=== PATIENT | female | born 1945 | race Hispanic/Latino ===

== ENCOUNTER 2019-08-17 15:14 | Emergency (ER) | payer OTHER ==
[2019-08-17] MEDS ORDERED: HYDROCODONE/APAP 7.5/325 MG TAB ONE (15:52)
--- NOTE | 2019-08-17 16:10 | RAD REPORT ---
EXAM DESCRIPTION: RAD - Lumbar Spine 3 Views - 08/17/2019 4:03 pm CLINICAL HISTORY: PAIN Radiculopathy COMPARISON: No comparisons FINDINGS: Vertebral body heights appear maintained. No compression fracture noted. Disc spaces are m aintained. Mild disc thinning with small posterior osteophyte at L4-5 and L5-S1. Cholecystectomy clip s. IMPRESSION: Mild lower lumbar spondylosis.
--- NOTE | 2019-08-17 16:11 | RAD REPORT ---
EXAM DESCRIPTION: RAD - Forearm Left - 08/17/2019 4:03 pm CLINICAL HISTORY: PAIN COMPARISON: No comparisons FINDINGS: Soft tissue swelling is seen along the dorsum of the wrist. Thin lucency along the radial styloid region may be a normal variant, however recommend correlation with point tenderness to exclud e subtle fracture.
--- NOTE | 2019-08-17 16:12 | RAD REPORT ---
EXAM DESCRIPTION: RAD - Knee Left 3 View - 08/17/2019 4:03 pm CLINICAL HISTORY: PAIN COMPARISON: No comparisons FINDINGS: No acute fracture or dislocation seen. Small suprapatellar joint effusion.
--- NOTE | 2019-08-17 16:21 | ER ---
Nurse's Notes [facility] Name: Sondra Azevedo Age: 73 yrs Sex: Female : 1945 Arrival Date: 08/17/2019 Time: 15:19 Bed 20 Private MD: Diagnosis: Fall on same level from slipping, tripping and stumbling with subsequent striking against object;Contusion of left knee;Abrasion of knee;Other and unspecified sprain of wrist Presentation: 08/16 15:31 Chief complaint: Patient's son or daughter states: Fell Sunday night. Left wrist and ll1 left leg/knee pain since. Abrasion noted to left knee, pain to posterior knee also. Denies LOC, no head injury. No blood thinners. Coronavirus screen: Proceed with normal triage. Patient denies a cough. Patient denies shortness of breath or difficulty breathing. Patient denies measured and/or subjective temperature greater than 100.4F prior to today's visit. Patient denies travel on a cruise ship or to a country the [facility] currently lists as an affected area. Patient denies contact with known and/or suspected case of COVID-19. Ebola Screen: Patient denies travel to an Ebola-affected area in the 21 days before illness onset. Initial Sepsis Screen: Does the patient meet any 2 criteria? No. Patient's initial sepsis screen is negative. Does the patient have a suspected source of infection? No. Patient's initial sepsis screen is negative. Risk Assessment: Do you want to hurt yourself or someone else? Patient reports no desire to harm self or others. Onset of symptoms was August 13, 2019. 15:31 Method Of Arrival: Wheelchair ll1 15:31 Acuity: SONALI 3 ll1 Triage Assessment: 17:18 General: Appears. ah Historical: - Allergies: 15:37 Benzonatate; ll1 15:37 Ibuprofen; ll1 - PMHx: 15:37 Hypertension; Hyperlipidemia; CVA; ll1 - PSHx: 15:37 cataracts; Cholecystectomy; Appendectomy; Hysterectomy; ; heart cath; ll1 - Immunization history:: Flu vaccine is up to date. - Social history:: Patient/guardian denies using alcohol, street drugs, tobacco products. Screenin:30 Abuse screen: Denies threats or abuse. Nutritional screening: No deficits noted. Tuberculosis screening: No symptoms or risk factors identified. Fall Risk Fall in past 12 months (25 points). No IV (0 pts). Ambulatory Aid- None/Bed Rest/Nurse Assist (0 pts). Gait- Weak (10 pts.). Mental Status- Oriented to own ability (0 pts). Assessment: 16:15 General: Appears uncomfortable, Behavior is calm. Pain: Complains of pain in left knee ah and left wrist. Neuro: Level of Consciousness is awake, alert, Oriented to person, place, time, situation. Cardiovascular: Capillary refill < 3 seconds Patient's skin is warm and dry. Respiratory: Airway is patent Respiratory effort is even, unlabored, Respiratory pattern is regular, symmetrical. GI: No signs and/or symptoms were reported involving the gastrointestinal system. : No signs and/or symptoms were reported regarding the genitourinary system. EENT: No signs and/or symptoms were reported regarding the EENT system. Derm: No signs and/or symptoms reported regarding the dermatologic system. Musculoskeletal: Circulation, motion, and sensation intact. Capillary refill < 3 seconds, Range of motion: limited in left knee abrasion noted to left knee from fall Tenderness present in left knee. Vital Signs: 15:31 BP 146 / 62; Pulse 65; Resp 17; Temp 97.7; Pulse Ox 100% ; Pain 10/10; ll1 ED Course: 15:19 Patient arrived in ED. mr 15:24 Donna Freitas FNP-C is [facility]. snw 15:24 Michael Hector MD is Attending Physician. snw 15:35 Triage completed. ll1 15:37 Arm band placed on Patient placed in an exam room, on a stretcher. ll1 15:43 Lashonda Lyons, RN is Primary Nurse. ah 16:03 Forearm Left XRAY In Process Unspecified. EDMS 16:03 Knee Left 3 View XRAY In Process Unspecified. EDMS 16:03 Lumbar Spine (3 Views) XRAY In Process Unspecified. EDMS 16:30 Patient has correct armband on for positive identification. Bed in low position. Call light in reach. Side rails up X 1. 17:00 No provider procedures requiring assistance completed. Patient did not have IV access during this emergency room visit. Administered Medications: 16:10 Drug: Bonesteel (7.5 mg-325 mg) 1 tabs Route: PO; 16:59 Drug: Lidocaine Gel 2 % 1 application Route: Mucous Membrane; 17:12 Follow up: Response: No adverse reaction Outcome: 16:21 Discharge ordered by . aditi 16:45 Discharged to home via wheelchair. 16:45 Condition: good 16:45 Discharge instructions given to patient, family, Instructed on discharge instructions, follow up and referral plans. Demonstrated understanding of instructions, follow-up care, Prescriptions given X 1. 17:03 Patient left the ED. vc Signatures: Dispatcher [employer] EDMS Donna Freitas, OTHER SPATIAL SCIENTIST-C OTHER SPATIAL SCIENTIST-Csnw Amirah Olmos Vanessa, RN RN vc Harris, Amy RN Maddy Millard RN RN ll1
--- NOTE | 2019-08-17 16:21 | EDPHYS ---
Physician Documentation [facility] Name: Sondra Azevedo Age: 73 yrs Sex: Female : 1945 Arrival Date: 08/17/2019 Time: 15:19 Bed 20 Private MD: ANDRES Physician Michael Hector HPI: 08/16 15:37 This 73 yrs old Female presents to ER via Wheelchair with complaints of Fall snw Injury. 15:37 Details of fall: The patient fell from an upright position, while walking. Onset: The snw symptoms/episode began/occurred suddenly, 4 day(s) ago, and became persistent. Associated injuries: The patient sustained dorsal aspect of left wrist and left knee, abrasion, contusion, painful injury. Severity of symptoms: At their worst the symptoms were moderate. The patient has not experienced similar symptoms in the past. The patient has not recently seen a physician. tripped going down steps with a box of fruit, no LOC, no neck pain, ambulatory post injury. Historical: - Allergies: 15:37 Benzonatate; ll1 15:37 Ibuprofen; ll1 - PMHx: 15:37 Hypertension; Hyperlipidemia; CVA; ll1 - PSHx: 15:37 cataracts; Cholecystectomy; Appendectomy; Hysterectomy; ; heart cath; ll1 - Immunization history:: Flu vaccine is up to date. - Social history:: Patient/guardian denies using alcohol, street drugs, tobacco products. ROS: 15:36 Constitutional: Negative for fever, chills, and weight loss, Eyes: Negative for injury, snw pain, redness, and discharge, ENT: Negative for injury, pain, and discharge, Neck: Negative for injury, pain, and swelling, Cardiovascular: Negative for chest pain, palpitations, and edema, Respiratory: Negative for shortness of breath, cough, wheezing, and pleuritic chest pain, Abdomen/GI: Negative for abdominal pain, nausea, vomiting, diarrhea, and constipation, Back: Negative for injury and pain, : Negative for injury, bleeding, discharge, and swelling, Skin: Negative for injury, rash, and discoloration, Neuro: Negative for headache, weakness, numbness, tingling, and seizure. 15:36 MS/extremity: Positive for injury or acute deformity, decreased range of motion, pain, of the left knee, and left wrist initially but it is improved. Exam: 15:35 Constitutional: This is a well developed, well nourished patient who is awake, alert, snw and in no acute distress. Head/Face: Normocephalic, atraumatic. Eyes: Pupils equal round and reactive to light, extra-ocular motions intact. Lids and lashes normal. Conjunctiva and sclera are non-icteric and not injected. Cornea within normal limits. Periorbital areas with no swelling, redness, or edema. ENT: Nares patent. No nasal discharge, no septal abnormalities noted. Tympanic membranes are normal and external auditory canals are clear. Oropharynx with no redness, swelling, or masses, exudates, or evidence of obstruction, uvula midline. Mucous membranes moist. Neck: Trachea midline, no thyromegaly or masses palpated, and no cervical lymphadenopathy. Supple, full range of motion without nuchal rigidity, or vertebral point tenderness. No Meningismus. Chest/axilla: Normal chest wall appearance and motion. Nontender with no deformity. No lesions are appreciated. Cardiovascular: Regular rate and rhythm with a normal S1 and S2. No gallops, murmurs, or rubs. Normal PMI, no JVD. No pulse deficits. Respiratory: Lungs have equal breath sounds bilaterally, clear to auscultation and percussion. No rales, rhonchi or wheezes noted. No increased work of breathing, no retractions or nasal flaring. Abdomen/GI: Soft, non-tender, with normal bowel sounds. No distension or tympany. No guarding or rebound. No evidence of tenderness throughout. Back: No spinal tenderness. No costovertebral tenderness. Full range of motion. Neuro: Awake and alert, GCS 15, oriented to person, place, time, and situation. Cranial nerves II-XII grossly intact. Motor strength 5/5 in all extremities. Sensory grossly intact. Cerebellar exam normal. Normal gait. Psych: Awake, alert, with orientation to person, place and time. Behavior, mood, and affect are within normal limits. 15:35 Musculoskeletal/extremity: Extremities: grossly normal except: noted in the left knee: pain, tenderness, noted in the dorsal aspect of left wrist: contusion, ROM: limited active range of motion due to pain, in the left knee, Circulation is intact in all extremities. Sensation intact. 15:35 Skin: Appearance: normal except for affected area, injury, abrasion(s), small abrasion noted, of the left knee. Vital Signs: 15:31 BP 146 / 62; Pulse 65; Resp 17; Temp 97.7; Pulse Ox 100% ; Pain 10/10; ll1 MDM: 15:25 Patient medically screened. snw 16:24 Data reviewed: vital signs, nurses notes. Data interpreted: Pulse oximetry: on room air snw is 100 %. Interpretation: normal. Counseling: I had a detailed discussion with the patient and/or guardian regarding: the historical points, exam findings, and any diagnostic results supporting the discharge/admit diagnosis, the presence of at least one elevated blood pressure reading (>120/80) during this emergency department visit, radiology results, the need for outpatient follow up, to return to the emergency department if symptoms worsen or persist or if there are any questions or concerns that arise at home. Special discussion: I have referred the patient to see his PCP for further evaluation of high blood pressure. Based on the history and exam findings, there is no indication for further emergent testing or inpatient evaluation. I discussed with the patient/guardian the need to see the orthopedic surgeon for further evaluation of the symptoms. I discussed with the patient/guardian the need to see the primary care provider for further evaluation of the symptoms. 05 15:35 Order name: Forearm Left XRAY; Complete Time: 16:22 snw 08/16 15:35 Order name: Knee Left 3 View XRAY; Complete Time: 16:22 snw 08/16 15:35 Order name: Lumbar Spine (3 Views) XRAY; Complete Time: 16:22 snw 08/16 16:22 Order name: Keven wrap-joint: left knee/ with nonstick dressing over abrasion; Complete snw Time: 17:12 08/16 16:22 Order name: Wrist Splint; Complete Time: 17:12 snw Administered Medications: 16:10 Drug: Lockhart (7.5 mg-325 mg) 1 tabs Route: PO; ah 16:59 Drug: Lidocaine Gel 2 % 1 application Route: Mucous Membrane; 17:12 Follow up: Response: No adverse reaction Disposition: 08/17/19 16:21 Discharged to Home. Impression: Fall on same level from slipping, tripping and stumbling with subsequent striking against object, Contusion of left knee, Abrasion of knee, Other and unspecified sprain of wrist. - Condition is Stable. - Discharge Instructions: Fall Prevention in the Home, RICE for Routine Care of Injuries, Wrist Splint. - Prescriptions for Ultram 50 mg Oral Tablet - take 1 tablet by ORAL route every 6 hours As needed; 12 tablet. - Medication Reconciliation Form, Thank You Letter, Antibiotic Education, Prescription Opioid Use form. - Follow up: Emergency Department; When: As needed; Reason: Worsening of condition. Follow up: Private Physician; When: 2 - 3 days; Reason: Recheck today's complaints, Continuance of care, Re-evaluation by your physician. Addendum: 08/18/2019 20:22 Co-signature as Attending Physician, Michael Hector MD I agree with the assessment and c barillas plan of care. Signatures: Dispatcher [employer] Michael Ordoñez MD MD cha Therrien, Shelly, TELEPHONE SURVEYOR-C TELEPHONE SURVEYOR-Csnw Adrianna Walker RN RN vc Lashonda Lyons RN RN Maddy Molina RN RN ll1 Corrections: (The following items were deleted from the chart) 08/16 17:03 16:21 08/17/2019 16:21 Discharged to Home. Impression: Fall on same level from vc slipping, tripping and stumbling with subsequent striking against object; Contusion of left knee; Abrasion of knee; Other and unspecified sprain of wrist. Condition is Stable. Forms are Medication Reconciliation Form, Thank You Letter, Antibiotic Education, Prescription Opioid Use. Follow up: Emergency Department; When: As needed; Reason: Worsening of condition. Follow up: Private Physician; When: 2 - 3 days; Reason: Recheck today's complaints, Continuance of care, Re-evaluation by your physician. snw
[2019-08-17] MEDS ORDERED: LIDOCAINE JELLY 2%- 5 ML TUBE ONE (16:47)
[2019-08-17 17:08] VITALS: BP 146/62; TEMP 97.7; O2SAT 100
== END 2019-08-17 17:03 | disposition home or self-care (01) ==
LOC: ER 15:14
DX: S80.02XA Contusion of left knee, initial encounter (principal); S80.212A Abrasion, left knee, initial encounter; S63.502A Unspecified sprain of left wrist, initial encounter; W01.10XA Fall on same level from slipping, tripping and stumbling with subsequent striking against unspecified object, initial encounter; Y93.9 Activity, unspecified; Y92.9 Unspecified place or not applicable; Z88.8 Allergy status to other drugs, medicaments and biological substances
CPT/HCPCS: 72100; 99283

== ENCOUNTER 2020-12-03 03:59 | Inpatient (IN) | payer OTHER ==
--- OUTSIDE RECORDS SUMMARY | 2020-12-03 04:02 | XMS REPORT | Continuity of Care Document ---
:1945 Author Organization [facility] t Address [address] [place] [address] [address]. [address] [place] [address] Care Team Providers Name Role Phone Samm Amaro MD Primary Care Physician Samm Amaro MD Attending Clinician Payers Payer Name Policy Type Policy Effective Date Expiration Date Sour ce Number AETNA MEDICAREAETNA [id number] 2019 Meth odist MEDICARE HMO/PPO 0 00:00:00 [place] [employer] [id number] Problems Condition Condition Condition Status Onset Resolution Last Treating Co mments Source Name Details Category Date Date Treatment Clinician Date No known No known Disease Metho di active active st problems problems Hospit a l Allergies, Adverse Reactions, Alerts Allergy Allergy Status Severity Reaction(s) Onset Inactive Treating Comm ents Source Name Type Date Date Clinician Ibuprofe Propensi Active Hives Daughter Meth sarah n ty to [address] adverse 00:00: any Hospita reaction 00 dosage l s to greater drug than 600 mg pt is allergic to. Other Propensi Active Palpitations Ibuprofen Methodi ty to 500+ st adverse Hospita reaction l s Social History Social Habit Start Date Stop Date Quantity Comments Source Exposure to Not sure [facility]-2 [facility] (event) Tobacco use and 2020-02-24 2020-02-24 Never used [facility] exposure 00:00:00 00:00:00 Hospital Alcohol intake 2020-02-24 2020-02-24 Current [facility] 00:00:00 00:00:00 non-drinker of Hospital alcohol (finding) Sex Ass[birth year] At [birth year] [facility] 00:00[facility]00 [facility] Smoking Status Start Date Stop Date Source Never smoker [facility] Medications Ordered Filled Start Stop Current Ordering Indication Dosage Frequency Signature Comments Components Source Medication Medication Date Date Medication? Clinician (SIG) Name Name sertraline Yes [id number] TAKE ONE [facility] (ZOLOFT) 25 7-[address] MG tablet 00:00: MOUTH [facility]ospita 00 DAILY l lisinopriL Yes [id number] TAKE ONE [facility] (PRINIVIL) 6-[address] 20 mg 00:00: MOUTH [facility]ospita tablet 00 DAILY l NIFEdipine Yes [id number] TAKE ONE [facility] CC (ADALAT 4-[address] CC) 30 MG 00:00: MOUTH Hospita 24 hr 00 TWICE A l tablet DAY sertraline 2020- No [id number] TAKE ONE [facility] (ZOLOFT) 25 4-26 07-[address] MG tablet 00:00: 00:00 MOUTH Hospit a 00 :00 DAILY l NIFEdipine 2020- No [id number] TAKE ONE [facility] CC (ADALAT 1-26 04-[address] CC) 30 MG 00:00: 00:00 MOUTH Hospit a 24 hr 00 :00 TWICE A l tablet DAY lisinopriL 2019-04- No [id number] TAKE ONE [facility] (PRINIVIL) 2-16 06-[address] 20 mg 00:00: 00:00 MOUTH Hospita tablet 00 :00 DAILY l metFORMIN 2019-04 Yes [id number] TAKE ONE [facility] XR 1-[address] (GLUCOPHAGE 00:00: MOUTH Hospi ta -XR) 500 mg 00 TWICE A l 24 hr DAY WITH tablet MEALS simvastatin 2019-04 Yes TAKE ONE Me thodi (ZOCOR) 40 1-[address] mg tablet 00:00: MOUTH Hospita 00 EVERY l NIGHT AT BEDTIME metFORMIN 2019-04 2020- No [id number] 500mg Q.5D Take 1 [facility] XR 1-03 11-[address] (GLUCOPHAGE 00:00: 00:00 (500 mg Ho spita -XR) 500 mg 00 :00 total) by l 24 hr mouth 2 tablet (two) times a day with meals for 90 days. sertraline 2019-04- No [id number] TAKE ONE [facility] (ZOLOFT) 25 0-28 04-[address] MG tablet 00:00: 00:00 MOUTH Hospit a 00 :00 DAILY l NIFEdipine 2019-04 [id number] TAKE ONE [facility] CC (ADALAT 0-28 01-[address] CC) 30 MG 00:00: 00:00 MOUTH Hospit a 24 hr 00 :00 TWICE A l tablet DAY NIFEdipine 2019-04 No [id number] TAKE ONE [facility] CC (ADALAT 0-09 10-[address] CC) 30 MG 00:00: 00:00 MOUTH Hospit a 24 hr 00 :00 DAILY l tablet lisinopriL No [id number] TAKE ONE [facility] (PRINIVIL) 9-18 12-[address] 20 mg 00:00: 00:00 MOUTH Hospita tablet 00 :00 DAILY l lisinopriL No [id number] TAKE ONE [facility] (PRINIVIL) 918 09-[address] 20 mg 00:00: 00:00 MOUTH Hospita tablet 00 :00 DAILY l simvastatin 2019- No TAKE ONE M ethodi (ZOCOR) 40 8-24 11-[address] mg tablet 00:00: 00:00 MOUTH Hospit a 00 :00 EVERY l NIGHT AT BEDTIME butalbital- 2019- No [id number] 1{capsu Q4H Take 1 [facility] acetaminoph 7-30 10-30 9102 le} capsule by s t en-caff 00:00: 04:59 mouth Hospita (FIORCET) 00 :00 every 4 l 50-325-40 (four) mg per hours as capsule needed for headaches or migraine for up to 90 doses. butalbitaL- 2019- No [id number] 1{tbl} Q4H Take 1 [facility] acetaminoph 7-30 10-[address] en (BUPAP) 00:00: 04:59 mouth Hospi ta 50-325 mg 00 :00 every 4 l tablet (four) hours as needed (migraine headaches) for up to 90 days. sertraline 2019- No [id number] 25mg QD Take 1 [facility] (ZOLOFT) 25 7-30 10-28 tablet (25 s t MG tablet 00:00: 00:00 mg total) Ho spita 00 :00 by mouth l daily. NIFEdipine 2019- No [id number] 30mg Q.5D Take 1 [facility] CC (ADALAT 7-30 09 tablet (30 st CC) 30 MG 00:00: 00:00 mg total) Ho spita 24 hr 00 :00 by mouth 2 l tablet (two) times a day. lisinopriL 2019- No [id number] TAKE ONE [facility] (PRINIVIL) 09-[address] 20 mg 00:00: 00:00 MOUTH Hospita tablet 00 :00 DAILY l metFORMIN 2019- No 500mg Q.5D Take 1 Meth sarah (GLUCOPHAGE 09-[address] ) 500 mg 00:00: 04:59 (500 mg Hospi ta tablet 00 :00 total) by l mouth 2 (two) times a day with meals for 90 days. cholecalcif 2018-04 Yes 2{tbl} QD Take 2 Me thodi kaye, 2-[address] vitamin D3, 14:15: mouth Hospi ta (VITAMIN 21 daily. l D3) 2,000 unit tablet magnesium 2018-04 Yes 1{tbl} QD Take 1 Meth sarah 250 mg 2-[address] tablet 14:15: mouth Hospita 21 daily. l linagliptin 2018-04 Yes 5mg QD Take 5 mg M ethodi (TRADJENTA) 2-[address] 5 mg tablet 14:15: nightly. Ho spita 21 l LORAZepam 2018-04 Yes .5mg Q6H Take 0.5 Meth sarah (ATIVAN) 2-[address] 0.5 MG 14:15: mouth Hospita tablet 21 every 6 l (six) hours as needed for anxiety. ketoprofen- 2018-04 Yes 1{appli QD Apply 1 [facility] gabapentin- 2-11 cation} applicatio st cyclobenzap 14:15: n Hospit a rine-lidoca 21 topically l ine daily. (SHINGLES TOPICAL CREAM) 10%-5%-5% topical cream gabapentin 2017-04 Yes [id number] 100mg Q.85065141 Take 1 [facility] (NEURONTIN) 0-[id number] 100 mg 00:00: 3D (100 mg Hospita capsule 00 total) by l mouth 3 (three) times a day. Immunizations Ordered Immunization Filled Immunization Date Status Commen ts Source Name Name Pneumococcal 2018-03-11 Completed [facility] Conjugate 13-Valent 00:00:00 Hospi camila Procedures Procedure Date / Time Performing Clinician Source Performed CBC WITH PLATELET AND 2020-03-16 18:09:00 [facility] DIFFERENTIAL COMPREHENSIVE METABOLIC 2020-03-16 18:09:00 [facility] PANEL HEMOGLOBIN A1C 2020-03-16 18:09:00 [facility] LIPID PANEL 2020-03-16 18:09:00 [facility] TSH REFLEX TO T4F 2020-03-16 18:09:00 [facility] VITAMIN B12 LEVEL 2020-03-16 18:09:00 [facility] MICROALBUMIN / CREATININE 2020-03-16 18:09:00 [facility] URINE RATIO Plan of Care Planned Activity Planned Date Details Comments Source Future Scheduled Test COVID-19 VACCINE (1) [facility] [code = COVID-19 VACCINE (1)] Future Scheduled Test Hepatitis C screening [facility] (procedure) [code = 756233733] Future Scheduled Test SHINGLES VACCINES (#1) [facility] [code = SHINGLES VACCINES (#1)] Future Scheduled Test 65+ PNEUMOCOCCAL [facility] VACCINE (1 of 2 - PPSV23) [code = 65+ PNEUMOCOCCAL VACCINE (1 of 2 - PPSV23)] Future Scheduled Test DIABETIC FOOT EXAM [facility] [code = DIABETIC FOOT EXAM] Future Scheduled Test DIABETES: RETINAL EYE [facility] EXAM [code = DIABETES: RETINAL EYE EXAM] Future Scheduled Test INFLUENZA VACCINE [code [facility] = INFLUENZA VACCINE] Future Scheduled Test URINE MICROALBUMIN [facility] [code = URINE MICROALBUMIN] Future Scheduled Test COLONOSCOPY SCREENING [facility] [code = COLONOSCOPY SCREENING] Encounters Start End Encounter Admission Attending Care Care Encounter Source Date/Time Date/Time Type Type Clinicians Facility Department ID 2020-12-02 2020-12-02 Telephone [facility].2.840.1 [id number] [facility] 00:00:00 00:00:[address] Samm 3.430.2.7 Hospit a .3.893598 l .8 2020-12-02 2020-12-02 Travel 1.2.840.1 [id number] Method[facility] 00:00:00 00:00:[address] 3.430.2.7 0.2.7.3.698 Ho spita .3.556736 084.8 l .8 2020-10-30 2020-10-30 Refill [facility], 1.2.840.1 [id number] Method[facility] 00:00:00 00:00:[address] Samm 3.430.2.7 Hospit a .3.998958 l .8 2020-09-19 2020-09-19 Refill [facility], 1.2.840.1 [id number] [facility] 00:00:00 00:00:[address] Samm 3.430.2.7 Hospit a .3.988927 l .8 2020-07-31 2020-07-31 Refill [facility], 1.2.840.1 [id number] [facility] 00:00:00 00:00:[address] Samm 3.430.2.7 Hospit a .3.475752 l .8 2020-05-02 2020-05-02 Refill [facility], 1.2.840.1 [id number] 1499 [facility] 00:00:00 00:00:[address] Samm 3.430.2.7 Hospit a .3.575516 l .8 2020-03-24 2020-03-24 Refill [facility], 1.2.840.1 [id number] 3236 [facility] 00:00:00 00:00:[address] Samm 3.430.2.7 Hospit a .3.117838 l .8 2020-03-01 2020-03-01 Refill [facility], 1.2.840.1 [id number] [facility] 00:00:00 00:00:[address] Samm 3.430.2.7 Hospit a .3.746140 l .8 2020-02-10 2020-02-10 Telemedici [facility], 1.2.840.1 [id number] Methodi 12:51:43 13:43:36 [address] Nielson [address]178.1.[address] Samm 3.430.2.7 Hospit a .3.296005 l .8 2020-02-10 2020-02-10 Outpatient NIELSON, [facility] [id number] [address] [place] [address] 00:00:00 00:00:[address] SAMM [address] 2020-02-04 2020-02-04 Refill [facility], 1.2.840.1 [id number] [facility] 00:00:00 00:00:[address] Samm 3.430.2.7 Hospit a .3.011995 l .8 2020-01-16 2020-01-16 Refill [facility], 1.2.840.1 [id number] Methodi 00:00:00 00:00:[address] Samm 3.430.2.7 Hospit a .3.920011 l .8 2019-12-26 2019-12-26 Refill [facility], 1.2.840.1 [id number] Methodi 00:00:00 00:00:[address] Samm 3.430.2.7 Hospit a .3.757362 l .8 2019-12-25 2019-12-25 Refill [facility], 1.2.840.1 [id number] Method[facility] 00:00:00 00:00:[address] Samm 3.430.2.7 Hospit a .3.425311 l .8 2019-11-06 2019-11-06 Outpatient [facility] [id number] [place] [address] 00:00:00 00:00:00 492 Method i 2019-07-16 2019-07-16 Outpatient NAGA [facility] [id number] Shock 00:00:00 00:00:00 SAMM Ybarra Method i 2018-01-09 2018-01-09 Outpatient [facility]500 [facility] 17:48:00 17:48:00 Results Test Description Test Time Test Comments Results Result Comments Source Comprehensive metabolic panel 2020-03-18 07:09:00 Test Item Value Reference Range Interpretation Comme nts Glucose (test code = 2345-7) 149 mg/dL 65-99 H BUN (test code = 3094-0) 27 mg/dL 7-25 H Creatinine (test code = 2160-0) 1.08 mg/dL 0.60-0.93 H EGFR Non-Afr. Maltese (test See_Comment L [Automated message] The code = 2775) system which [employer] nerated this result transmit atiya reference range: > OR = 6 0 mL/min/1.73m2. The reference range was not u sed to interpret this result as normal/abnormal . EGFR (test code See_Comment L [Automated message] The = 34988-6) system which [employer] nerated this result transmit atiya reference range: > OR = 6 0 mL/min/1.73m2. The reference range was not u sed to interpret this result as normal/abnormal . BUN/creatinine ratio (test code See_Comment H [Automated message] The = 3097-3) system which [employer] nerated this result transmit atiya reference range: 6 - 22 ( calc). The reference range was not used to interpret th is result as normal/abnormal . Sodium (test code = 2951-2) 144 mmol/L 135-146 Potassium (test code = 2823-3) 4.7 mmol/L 3.5-5.3 Chloride (test code = 2075-0) 106 mmol/L 98-110 CO2 (test code = 2027-9) 31 mmol/L 20-32 Calcium (test code = 41574-6) 9.6 mg/dL 8.6-10.4 Protein (test code = 2885-2) 6.5 g/dL 6.1-8.1 Albumin, S (test code = 1751-7) 4.1 g/dL 3.6-5.1 Globulin, total (test code = See_Comment [Automated message] The 74789-7) system which ge nerated this result transmit atiya reference range: 1.9 - 3. 7 g/dL (calc). The ref erence range was not used to interpret this result as normal/abnormal . Albumin/globulin ratio (test See_Comment [Automated message] The code = 1759-0) system which generated this result transmit atiya reference range: 1.0 - 2. 5 (calc). The reference range was not used to interpret th is result as normal/abnormal . Total bilirubin (test code = 0.4 mg/dL 0.2-1.2 1974-) Alkaline phosphatase (test code 109 U/L 37-153 = 6768-6) AST (test code = 1920-8) 18 U/L 10-35 ALT (test code = 1742-6) 13 U/L 6-29 CHAN (test code = CHAN) RAC (test code = RAC) Lab Interpretation (test code = Abnormal 56025-9) [id number] 07:[facility]:00 Test Item Value Reference Range Interpretation Comments Cholesterol, total 148 mg/dL <200 (test code = 2093-3) HDL cholesterol (test 77 mg/dL See_Comment [Auto mated message] code = 2085-9) The system wh ich generated this result transmitted ref erence range: > OR = 5 0. The reference range was not used to int erpret this result as normal/abnormal . Triglycerides (test 88 mg/dL <150 code = 2571-8) LDL cholesterol mg/dL (calc) calculated (test code = 45449-2) Cholesterol/HDL ratio See_Comment [Auto mated message] (test code = 9830-1) The sys tem which generated this result transmitted ref erence range: <5.0 (ca lc). The reference r wilber was not used to interpret this result as normal/abnor mal. Non-HDL cholesterol See_Comment [Automa atiya message] (test code = 82361-4) The sy stem which generated this result transmitted ref erence range: <130 mg/ dL (calc). The ref erence range was not u sed to interpret this result as normal/abnor mal. CHAN (test code = CHAN) RAC (test code = RAC) [facility] [id number] 07:09:00 Test Item Value Reference Range Interpretation Comments Vitamin B12 (test code = 2132-9) 312 pg/mL 200-1100 CHAN (test code = CHAN) RAC (test code = RAC) [facility] [id number] 07:09:00 Test Item Value Reference Range Interpretation Comments Hemoglobin A1C (test See_Comment H [Autom ated message] code = 4548-4) The system [facility] generated this result transmitted ref erence range: <5.7 % o f total Hgb. The reference range was not used to int erpret this result as normal/abnormal . CHAN (test code = CHAN) RAC (test code = RAC) Lab Interpretation (test Abnormal code = 31112-5) [facility] and [id number] 07:09:00 Test Item Value Reference Range Interpretation Comments WBC (test code = See_Comment [Automated message] 6690-2) The system [facility] generated this result transmitted ref erence range: 3.8 - 10 .8 Thousand/uL. Th e reference range was not used to int erpret this result as normal/abnormal . RBC (test code = See_Comment [Automated message] 789-8) The system [facility] generated this result transmitted ref erence range: 3.80 - 5 .10 Million/uL. The reference range was not used to int erpret this result as normal/abnormal . HGB (test code = 12.5 g/dL 11.7-15.5 718-7) HCT (test code = 37.8 % 35.0-45.0 4544-3) MCV (test code = 89.6 fL 80.0-100.0 787-2) MCH (test code = 29.6 pg 27.0-33.0 785-6) MCHC (test code = 33.1 g/dL 32.0-36.0 786-4) RDW (test code = 12.7 % 11.0-15.0 788-0) Platelet count (test See_Comment [Autom ated message] code = 777-3) The system [facility] generated this result transmitted ref erence range: 140 - 40 0 Thousand/uL. Th e reference range was not used to int erpret this result as normal/abnormal . MPV (test code = 11.2 fL 7.5-12.5 776-5) Neutrophils, absolute See_Comment [Auto mated message] (test code = 751-8) The syst em which generated this result transmitted ref erence range: 1,500 - 7,800 cells/uL. The reference range was not used to int erpret this result as normal/abnormal . Lymphocytes, absolute See_Comment [Auto mated message] (test code = 731-0) The syst em which generated this result transmitted ref erence range: 850 - 3, 900 cells/uL. The reference range was not used to int erpret this result as normal/abnormal . Monocytes, absolute See_Comment [Automa atiya message] (test code = 742-7) The syst em which generated this result transmitted ref erence range: 200 - 95 0 cells/uL. The reference range was not used to int erpret this result as normal/abnormal . Eosinophils, absolute See_Comment [Auto mated message] (test code = 711-2) The syst em which generated this result transmitted ref erence range: 15 - 500 cells/uL. The reference range was not used to int erpret this result as normal/abnormal . Basophils, absolute See_Comment [Automa atiay message] (test code = 704-7) The syst em which generated this result transmitted ref erence range: 0 - 200 cells/uL. The reference range was not used to int erpret this result as normal/abnormal . Neutrophils (test code 66.9 % = 770-8) Lymphocytes (test code 23.0 % = 736-9) Monocytes (test code = 7.3 % 5905-5) Eosinophils (test code 2.4 % = 713-8) Basophils + RC (test 0.4 % code = 706-2) CHAN (test code = CHAN) RAC (test code = RAC) [facility] [id number] 07:09:00 Test Item Value Reference Range Interpretation Comments Creatinine, urine, 259 mg/dL 20-275 random (test code = 2161-8) Microalbumin, urine 4.5 mg/dL See Note: (test code = 73426-5) Microalbumin/creatin See_Comment [Autom ated message] The ine ratio (test code system which generated = 9318-7) this result tra nsmitted reference range : <30 mcg/mg creat. T he reference range was not used to interpr et this result as normal/abnormal . CHAN (test code = CHAN) RAC (test code = RAC) [facility] reflex to [id number] 07:09:00 Test Item Value Reference Range Interpretation Comments TSH reflex to FT4 See_Comment [Automate d message] The (test code = 3016-3) system which generated this result tra nsmitted reference range : 0.40 - 4.50 mIU/L. The reference range was not u sed to interpret this result as normal/abnormal . CHAN (test code = CHAN) RAC (test code = RAC) [facility]
[2020-12-03 05:01] LABS: Absolute Lymphocytes (CBC) 2.3 K/uL (0.7-4.9); Basophils % 0.4 % (0-1.3); Hematocrit 45.8 % (36.0-45.0); Lymphocytes % 29.9 % (15.3-44.8)
[2020-12-03 05:02] LABS: Protime INR 0.98
[2020-12-03] MEDS ORDERED: ONDANSETRON 4 MG/2 ML VIAL ONE (05:05)
[2020-12-03] MEDS ORDERED: MORPHINE 2 MG/ML SYR ONE ×2 (05:05→05:40)
[2020-12-03 05:20] LABS: ALT/SGPT 49 U/L (12-78); AST/SGOT 58 U/L (15-37); Albumin 4.1 g/dL (3.4-5.0); Alkaline Phosphatase 141 U/L (45-117); BUN Blood Urea Nitrogen 28 mg/dL (7-18); Bicarbonate 27 mmol/L (21-32); Bilirubin Direct 0.2 mg/dL (0-0.2); Bilirubin Total 0.4 mg/dL (0.2-1.0); Glucose Level 109 mg/dL (74-106); Lipase 1222 U/L (73-393); NT PRO-BNP 272 pg/mL (<450); Potassium 3.9 mmol/L (3.5-5.1); Protein, Total 8.4 g/dL (6.4-8.2); Sodium Level 138 mmol/L (136-145); Troponin (Emerg Dept Use Only) < 0.02 ng/mL (0.0-0.045)
--- NOTE | 2020-12-03 05:39 | EDPHYS ---
Physician Documentation [facility] Name: Sondra Azevedo Age: 75 yrs Sex: Female : 1945 Arrival Date: 12/03/2020 Time: 04:02 Bed 7 Private MD: ED Physician Sarwat Sanches HPI: 12/03 04:18 This 75 yrs old Female presents to ER via Unassigned with complaints of Chest rn Pain, abdominal pain, back Pain, Arm Pain. 04:18 The patient or guardian reports chest pain that is located primarily in the substernal rn area, epigastric area. Onset: yesterday. The pain radiates to both arms, Associated signs and symptoms: Pertinent positives: abdominal pain, Pertinent negatives: cough, headache, syncope, vomiting. The chest pain is described as aching. Duration: The patient or guardian reports multiple episodes, that are intermittent. Modifying factors: The symptoms are alleviated by nothing. the symptoms are aggravated by nothing. Severity of pain: At its worst the pain was moderate in the emergency department the pain is unchanged. The patient has not experienced similar symptoms in the past. The patient has been recently seen by a physician:. Patient reports chest pain/back pain/abdominal pain/flank pain that began yesterday, seen at [place] [facility] yesterday, told everything looked okay and discharged home with meloxicam. Patient denies trauma. No recent illness or fever. Reports pain radiates to both arms and back. No vomiting or diarrhea. Has had cholecystectomy/hysterectomy/appendectomy. No known history of cardiac problems.. Historical: - Allergies: 04:23 Benzonatate; bb 04:23 Ibuprofen; bb - PMHx: 04:23 CVA; Hyperlipidemia; Hypertension; bb 08:33 DM; hb - Immunization history:: Adult Immunizations up to date, Client reports receiving the 2nd dose of the Covid vaccine. - Social history:: Smoking status: Patient denies any tobacco usage or history of. - Family history:: not pertinent. - Hospitalizations: : No recent hospitalization is reported. ROS: 04:18 Constitutional: Negative for fever, chills, and weight loss, Eyes: Negative for injury, rn pain, redness, and discharge, Neck: Negative for injury, pain, and swelling, Cardiovascular: Negative for palpitations, and edema, Respiratory: Negative for shortness of breath, cough, wheezing, and pleuritic chest pain, Abdomen/GI: Negative for nausea, vomiting, diarrhea, and constipation, Back: Negative for injury : Negative for injury, bleeding, discharge, and swelling, MS/Extremity: Negative for injury and deformity, Skin: Negative for injury, rash, and discoloration, Neuro: Negative for headache, weakness, numbness, tingling, and seizure. 04:18 All other systems are negative. Exam: 04:18 Constitutional: This is a well developed, well nourished patient who is awake, alert, rn moaning and groaning Head/Face: Normocephalic, atraumatic. Eyes: Periorbital areas with no swelling, redness, or edema. Chest/axilla: Normal chest wall appearance and motion. Cardiovascular: Regular rate and rhythm. No pulse deficits. Respiratory: Mild tachypnea Abdomen/GI: Soft, tender right upper quadrant and epigastric regions Skin: Warm, dry MS/ Extremity: Pulses equal, no cyanosis. Neuro: Awake and alert, GCS 15, oriented to person, place, time, and situation. Cranial nerves II-XII grossly intact. Motor strength 5/5 in all extremities. Sensory grossly intact. 05:38 ECG was reviewed by the Attending Physician. rn Vital Signs: 04:18 BP 141 / 54; Pulse 71; Resp 22 S; Temp 97.9(O); Pulse Ox 100% on R/A; Weight 62.6 kg bb (R); Height 4 ft. 11 in. (149.86 cm) (R); Pain 10/10; 04:18 Body Mass Index 27.87 (62.60 kg, 149.86 cm) bb MDM: 04:04 Patient medically screened. rn 05:34 Differential diagnosis: acute myocardial infarction, acute pericarditis, anxiety, rn coronary artery disease chest wall pain, costochondritis, esophagitis, gastritis, gastroesophageal reflux disease (GERD), pancreatitis, peptic ulcer disease, pericarditis, pleurisy, pneumonia, pneumothorax, stable angina, thoracic aortic disection, unstable angina. Data reviewed: vital signs, nurses notes, and as a result, I will discharge patient. 05:35 Data interpreted: surveillance monitor: rate is 71 beats/min, rhythm is normal sinus rhythm, rn regular, with no ectopy, Interpretation: normal rate, normal rhythm, Pulse oximetry: on room air is 100 %. Interpretation: normal. Test interpretation: by ED physician or midlevel provider: ECG, plain radiologic studies, Chest x-ray negative for acute infiltrate or pneumothorax. Counseling: I had a detailed discussion with the patient and/or guardian regarding: the historical points, exam findings, and any diagnostic results supporting the discharge/admit diagnosis, lab results, radiology results, the need for further work-up and treatment in the hospital. Response to treatment: the patient's symptoms have mildly improved after treatment, and as a result, I will admit patient. Admission orders: after a detailed discussion of the patient's condition and case, the admit orders are written by me. ED course: No clear etiology of patient's chest or abdominal pain on CT aorta or blood work. Lipase elevated but no signs of inflammation on the CAT scan. Also patient status post cholecystectomy and does not drink alcohol. Daughter states recent blood tests do not show remarkably elevated triglycerides or cholesterol level. Patient continues to state that she feels like she is dying and continues to moan and groan in bed. Pain helped with morphine but not resolved. Will observe in hospital for chest pain rule out. Patient also had a negative CT of the abdomen recently at [facility]. 12/03 04:17 Order name: Basic Metabolic Panel; Complete Time: 05:20 12/03 04:17 Order name: CBC with Diff; Complete Time: 05:06 12/03 04:17 Order name: LFT's; Complete Time: 05:20 12/03 04:17 Order name: NT PRO-BNP; Complete Time: 05:20 12/03 04:17 Order name: PT-INR; Complete Time: 05:15 12/03 04:17 Order name: Troponin (emerg Dept Use Only); Complete Time: 05:20 12/03 04:17 Order name: Lipase; Complete Time: 05:20 12/03 04:56 Order name: CREATININE WHOLE BLOOD; Complete Time: 05:03 [facility] 12/03 06:12 Order name: COVID-19 : Document "Date of Symptom Onset" if Symptomatic. 12/03 06:54 Order name: Urine Microscopic Only 12/03 09:08 Order name: Lipid Profile [facility] 12/03 09:08 Order name: T4 Free [facility] 12/03 09:08 Order name: Thyroid Stimulating Hormone [facility] 12/03 09:11 Order name: Glucose, Ancillary Testing [facility] 12/03 04:17 Order name: XRAY Chest (1 view) rn 12/03 04:17 Order name: EKG; Complete Time: 04:19 rn 12/03 04:17 Order name: Cardiac monitoring; Complete Time: 04:33 rn 12/03 04:17 Order name: EKG - Nurse/Tech; Complete Time: 04:33 rn 12/03 04:17 Order name: IV Saline Lock; Complete Time: 04:33 rn 12/03 04:17 Order name: Labs collected and sent; Complete Time: 04:33 rn 12/03 04:17 Order name: O2 Per Protocol; Complete Time: 04:33 rn 12/03 04:17 Order name: O2 Sat Monitoring; Complete Time: 04:32 rn 12/03 04:17 Order name: CT Aorta for Dissection rn 12/03 09:53 Order name: SARS-COV-2 RT PCR [facility] 12/03 09:59 Order name: Hemoglobin A1c [facility] 12/03 11:09 Order name: CBC with Automated Diff [facility] EC:38 Rate is 75 beats/min. Rhythm is regular. Left axis deviation noted. QRS is positive in rn lead I and negative in lead aVF. CO interval is normal. QRS interval is prolonged at 124 msec. QT interval is normal. No Q waves. T waves are Normal. No ST changes noted. Clinical impression: NSR, LBBB. Interpreted by me. Reviewed by me. Administered Medications: 04:50 Drug: morphine 2 mg {Note: RASS 0.} Route: IVP; Site: right antecubital; bb 04:50 Drug: Zofran (Ondansetron) 4 mg Route: IVP; Site: right antecubital; bb 05:22 Drug: morphine 2 mg Route: IVP; Site: right antecubital; jb4 06:37 Drug: NS 0.9% 500 ml Route: IV; Rate: bolus; Site: right antecubital; jb4 Disposition Summary: 12/03/20 05:38 Hospitalization Ordered Hospitalization Status: Observation rn Provider: Carolina Bahena rn Condition: Stable rn Problem: new rn Symptoms: have improved rn Bed/Room Type: Standard rn Location: Telemetry/MedSurg (observation)(12/03/20 10:40) dw Room Assignment: 216(12/03/20 10:40) dw Diagnosis - Chest pain, unspecified rn - Upper abdominal pain, unspecified rn Forms: - Medication Reconciliation Form rn - SBAR form rn Signatures: Dispatcher [employer] Maddie Chong RN RN dw Ballard, Brenda RN RN Sarwat Sanches MD MD rn Baxter, Heather, RN RN hb Bryson, James RN RN jb4 Corrections: (The following items were deleted from the chart) 08:44 05:38 Telemetry/MedSurg (observation) rn hb 08:44 05:38 rn 10:40 08:44 [facility] ER HOLD hb dw 10:40 08:44 ERHOLD- hb dw
--- NOTE | 2020-12-03 05:39 | ER ---
Nurse's Notes [facility] Name: Sondra Azevedo Age: 75 yrs Sex: Female : 1945 Arrival Date: 12/03/2020 Time: 04:02 Bed 7 Private MD: Diagnosis: Chest pain, unspecified;Upper abdominal pain, unspecified Presentation: 12/03 04:18 Chief complaint: Patient's son or daughter states: pt c/o back, chest, arm pain she was bb seen at [place] night before last for similar symptoms and was told to go to the hospital if symptoms persisted. Coronavirus screen: At this time, the client does not indicate any symptoms associated with coronavirus-19. Ebola Screen: No symptoms or risks identified at this time. Initial Sepsis Screen: Does the patient meet any 2 criteria? No. Patient's initial sepsis screen is negative. Does the patient have a suspected source of infection? No. Patient's initial sepsis screen is negative. Risk Assessment: Do you want to hurt yourself or someone else? Patient reports no desire to harm self or others. Onset of symptoms was December 03, 2020. 04:18 Method Of Arrival: Wheelchair bb 04:18 Acuity: SONALI 3 bb Historical: - Allergies: 04:23 Benzonatate; bb 04:23 Ibuprofen; bb - PMHx: 04:23 CVA; Hyperlipidemia; Hypertension; bb 08:33 DM; hb - Immunization history:: Adult Immunizations up to date, Client reports receiving the 2nd dose of the Covid vaccine. - Social history:: Smoking status: Patient denies any tobacco usage or history of. - Family history:: not pertinent. - Hospitalizations: : No recent hospitalization is reported. Screenin:49 Abuse screen: Denies threats or abuse. Denies injuries from another. Nutritional hb screening: No deficits noted. Tuberculosis screening: No symptoms or risk factors identified. Fall Risk None identified. Assessment: 07:15 General: Appears in no apparent distress. Behavior is calm, cooperative. Pain: Denies hb pain. Neuro: Level of Consciousness is awake, alert, obeys commands, Oriented to person, place, time, situation. Cardiovascular: Patient's skin is warm and dry. Respiratory: Respiratory effort is even, unlabored, Respiratory pattern is regular, symmetrical. GI: No signs and/or symptoms were reported involving the gastrointestinal system. : No signs and/or symptoms were reported regarding the genitourinary system. EENT: No signs and/or symptoms were reported regarding the EENT system. Derm: Skin is pink, warm \T\ dry. Musculoskeletal: No signs and/or symptoms reported regarding the musculoskeletal system. 07:15 Reassessment: Admission ordered, awaiting hospitalist orders and room assignment. hb Vital Signs: 04:18 BP 141 / 54; Pulse 71; Resp 22 S; Temp 97.9(O); Pulse Ox 100% on R/A; Weight 62.6 kg bb (R); Height 4 ft. 11 in. (149.86 cm) (R); Pain 10/10; 04:18 Body Mass Index 27.87 (62.60 kg, 149.86 cm) bb ED Course: 04:02 Patient arrived in ED. bp1 04:04 Sarwat Sanches MD is Attending Physician. rn 04:11 EKG completed in triage. Results shown to MD. bb 04:22 Triage completed. bb 04:23 Arm band placed on Patient placed in an exam room, on a stretcher, on bus driver/monitor, bb on pulse oximetry. 04:31 XRAY Chest (1 view) In Process Unspecified. EDMS 04:35 William Araya, STAN is Primary Nurse. jb4 04:47 CT Aorta for Dissection In Process Unspecified. EDMS 05:37 Carolian Bahena MD is Hospitalizing Provider. rn 07:49 Patient has correct armband on for positive identification. Bed in low position. Call light in reach. lunchroom monitor on. Pulse ox on. NIBP on. 07:49 Patient maintains SpO2 saturation greater than 95% on room air. hb Administered Medications: 04:50 Drug: morphine 2 mg {Note: RASS 0.} Route: IVP; Site: right antecubital; bb 04:50 Drug: Zofran (Ondansetron) 4 mg Route: IVP; Site: right antecubital; bb 05:22 Drug: morphine 2 mg Route: IVP; Site: right antecubital; jb4 06:37 Drug: NS 0.9% 500 ml Route: IV; Rate: bolus; Site: right antecubital; jb4 Outcome: 05:38 Decision to Hospitalize by Provider. rn 11:14 Patient left the ED. hb Signatures: Dispatcher [employer] EDMichelle Gong RN RN bb Nieto, Roman, MD MD rn Baxter, Heather, RN RN hb Bryson, James, RN RN jbNasreen [facility]
[2020-12-03] MEDS ORDERED: NA CHLORIDE 0.9% 500 ML ONE (06:51)
--- NOTE | 2020-12-03 07:05 | RAD REPORT ---
EXAM DESCRIPTION: RAD - Chest Single View - 12/03/2020 4:32 am CLINICAL HISTORY: CHEST PAIN COMPARISON: Chest Single View dated 12/02/2020HEST SINGLE VIEW dated 05/22/2014 FINDINGS: No evidence of edema or pneumonia. The heart size is within normal limits.No acute osseous abnormality. No significant pleural effusions or pneumothorax. IMPRESSION: No acute cardiopulmonary disease.
[2020-12-03] MEDS ORDERED: NITROGLYCERIN 0.4 MG/TAB SL PRN (08:13)
[2020-12-03] MEDS ORDERED: ONDANSETRON 4 MG/2 ML VIAL IV PRN (08:13)
[2020-12-03] MEDS: NA CHLORIDE 0.9% 1,000 ML IV SCH ×4 (08:13→21:48)
--- NOTE | 2020-12-03 08:30 | P.HP ---
Certification for Inpatient Patient admitted to: Observation With expected LOS: <2 Midnights Patient will require the following post-hospital care: None Practitioner: I am a practitioner with admitting privileges, knowledge of patient current condition, hospital course, and medical plan of care. Services: Services provided to patient in accordance with Admission requirements found in Title 42 Section 412.3 of the Code of Federal Regulations <Rubina Hathaway - Last Filed: 12/03/20 08:14> Patient History Date of Service: 12/03/20 Primary Care Provider: Dr. Blanca Stout Reason for admission: ACS rule out, elevated lipase History of Present Illness: This is a 75 y/o F with HTN, HLD, CVA s/p 2010 who presents today with substernal chest pain x 2 days. The pain starts in the back and radiates to the chest, epigastrium, and bilateral arms with associated tingling and numbing sensations. Reports this has never happened in the past. She was seen at [place] yesterday and was told every lab and imaging came back normal except for some bacteria in the urine. She was given ceftin, toradol, and meloxicam and was sent home. Pt came to ER today since pain has not improved. Denies any nausea, vomiting, fevers, chills. Denies any urinary symptoms. AST 58, ALT 49, alk phos 141, lipase 1222 negative troponin CXR: FINDINGS: No evidence of edema or pneumonia. The heart size is within normal limits.No acute osseous abnormality. No significant pleural effusions or pneumothorax. IMPRESSION: No acute cardiopulmonary disease. CT: 1. No aortic aneurysm or dissection 2. Fatty liver 3. Cholecystecomy without biliary dilatation or choledocolithiasis 4. 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 - Past Medical/Surgical History Diabetic: Yes -: DM -: HTN -: Hypothyroidism -: Hyperlipidemia -: CVA 2010 -: Cataract - bilateral -: Heart Cath -: -: Hysterectomy -: Appy -: Migdalia -: breast biopsy Psychosocial/ Personal History: lives with and kids - Family History Family History: Reviewed- Non-Contributory (pt is adopted) - Social History Smoking Status: Never smoker Alcohol use: No CD- Drugs: No Caffeine use: Yes <Rubina Hathaway - Last Filed: 12/03/20 08:14> Date of Service: 12/03/20 <Carolina Bahena - Last Filed: 12/05/20 09:12> Allergies ibuprofen Allergy (Mild, Verified 05/23/14 01:38) ROCK, Nausea, Vomitting benzonatate [From Tesmainor Mason] Adverse Reaction (Mild, Verified 05/23/14 01:38) Confusion Home Medications: LORazepam [Ativan*] 0.5 mg PO TID PRN 05/23/14 Simvastatin [Zocor*] 20 mg PO BEDTIME 05/23/14 Cholecalciferol (Vitamin D3) [Vitamin D3] 2,000 units PO DAILY 12/03/20 Dapagliflozin Propanediol [Farxiga] 10 mg PO BEDTIME 12/03/20 Gabapentin [Neurontin*] 100 mg PO BEDTIME 12/03/20 Linagliptin [Tradjenta] 5 mg PO BEDTIME 12/03/20 Magnesium Oxide [Magnesium] 250 mg PO DAILY 12/03/20 Nifedipine [Procardia Xl] 30 mg PO DAILY 12/03/20 Sertraline [Zoloft*] 25 mg PO DAILY 12/03/20 lisinopriL [Prinivil*] 20 mg PO DAILY 12/03/20 Butalb/Acetaminophen/Caffeine [Fioricet 50-300-40 mg Capsule] 50 mg PO DAILY PRN 12/04/20 Acyclovir Tab [Zovirax*] 400 mg PO Q6HR #28 tablet 12/05/20 Acyclovir [Zovirax] 1 strip TP Q8H #1 oint...g. 12/05/20 predniSONE [Deltasone] 20 mg PO BID #14 tab 12/05/20 Review of Systems 10-point ROS is otherwise unremarkable <Rubina Hathaway - Last Filed: 12/03/20 08:14> Physical Examination - Physical Exam General: Alert, In no apparent distress, Oriented x3, Cooperative HEENT: Atraumatic, Normocephalic, Mucous membr. moist/pink Neck: Supple Respiratory: Clear to auscultation bilaterally, Normal air movement Cardiovascular: No edema, Regular rate/rhythm Capillary refill: <2 Seconds Gastrointestinal: Normal bowel sounds, Soft and benign, Non-distended, Other (CVA tenderness R>L) Musculoskeletal: No swelling, No contractures Integumentary: No rashes, No breakdown, No cyanosis Neurological: Normal speech, Normal strength at 5/5 x4 extr, Normal affect Lymphatics: No axilla or inguinal lymphadenopathy - Studies Laboratory Data (last 24 hrs) 12/03/20 04:30: PT 11.3, INR 0.98 12/03/20 04:30: WBC 7.50, Hgb 15.2 H, Hct 45.8 H, Plt Count 203 12/03/20 04:30: Sodium 138, Potassium 3.9, BUN 28 H, Creatinine 1.22, Glucose 109 H, Total Bilirubin 0.4, AST 58 H, ALT 49, Alkaline Phosphatase 141 H, Lipase 1222 H <Rubina Hathaway - Last Filed: 12/03/20 08:14> Assessment and Plan - Problems (Diagnosis) (1) Chest pain Current Visit: Yes Status: Acute (2) Back pain Current Visit: Yes Status: Acute (3) Elevated lipase Current Visit: Yes Status: Acute - Plan ACS rule out vs mild pancreatitis admitted for observation troponins q6h x2 ordered, initial trop neg aspirin, statin, beta jesus imaging negative for any acute processes stress test ordered lipid panel ordered thyroid panel ordered NTG prn IVF hydration pain control recheck lipase in the afternoon UA pending DVT prophylaxis-lovenox Discharge Plan: Home Plan to discharge in: 24 Hours - Advance Directives Does patient have a Living Will: No Does patient have a Durable POA for Healthcare: No - Code Status/Comfort Care Code Status Assessed: Yes (full) Time Spent Managing Pts Care (In Minutes): 70 <Rubina Hathaway - Last Filed: 12/03/20 08:14> - Problems (Diagnosis) (1) Acute pancreatitis Current Visit: Yes Status: Acute (2) Hypoglycemia Current Visit: Yes Status: Acute (3) Abdominal wall pain in right flank Current Visit: Yes Status: Acute (4) Chest pain, rule out acute myocardial infarction Current Visit: Yes Status: Acute <Carolina Bahena - Last Filed: 12/05/20 09:12> Date of Service: 12/03/20 Subjective Agree with plan of care as mentioned below Review of Systems 10-point ROS is otherwise unremarkable Physical Examination - Vital Signs Reviewed - Physical Exam General: Alert, In no apparent distress, Oriented x3 Respiratory: Clear to auscultation bilaterally, Normal air movement Cardiovascular: Regular rate/rhythm, Normal S1 S2, No murmurs Gastrointestinal: Normal bowel sounds, Soft and benign, Non-distended, No tenderness Musculoskeletal: No clubbing, No swelling, No tenderness Neurological: Sensation intact, Cranial nerves 3-12 intact - Studies Medications List Reviewed: Yes Assessment & Plan - Problems (Diagnosis) (1) Acute pancreatitis Current Visit: Yes Status: Acute (2) Hypoglycemia Current Visit: Yes Status: Acute (3) Abdominal wall pain in right flank Current Visit: Yes Status: Acute (4) Chest pain, rule out acute myocardial infarction Current Visit: Yes Status: Acute - Plan PLAN: 1. Continue with aggressive IVFs 2. Continue with clear liquid-hypoglycemia and see how she tolerates it 3. Unknown etiology of acute pancreatitis with no alcohol history and cholecystectomy; triglycerides WNL; will review medications 4. Cardiac work-up negative 5. GI/DVT prophylaxis Discharge Plan: Home Plan to discharge in: Greater than 2 days - Advance Directives Does patient have a Living Will: No Does patient have a Durable POA for Healthcare: No - Code Status/Comfort Care Code Status Assessed: Yes Code Status: Full Code Critical Care: No Time Spent Managing PTS Care (In Minutes): 35 <Carolina Bahena - Last Filed: 12/05/20 09:12>
[2020-12-03 08:33] VITALS: BMI 27.8
[2020-12-03 09:00] LABS: Thyroid Stimulating Hormone 7.6 uIU/mL (0.360-3.740)
[2020-12-03] MEDS: SERTRALINE HCL 50 MG TAB PO SCH (09:00)
[2020-12-03] MEDS: ENOXAPARIN 40 MG/0.4 ML SQ SCH (09:00)
[2020-12-03] MEDS: ASPIRIN EC 81 MG TAB PO SCH (09:00)
[2020-12-03] MEDS ORDERED: REGADENOSON 0.4 MG/5 ML SYR IV ONE (09:23)
[2020-12-03 11:09] LABS: Absolute Lymphocytes (CBC) 1.6 K/uL (0.7-4.9); Basophils % 0.4 % (0-1.3); Hematocrit 40.6 % (36.0-45.0); Lymphocytes % 26.6 % (15.3-44.8); RBC Red Blood Cell Count 4.48 M/uL (3.86-4.86)
[2020-12-03] MEDS ORDERED: NA CHLORIDE 0.9% 1,000 ML ONE (11:09)
[2020-12-03] MEDS ORDERED: ASPIRIN EC 81 MG TAB PO ONE (11:09)
[2020-12-03] MEDS ORDERED: ENOXAPARIN 40 MG/0.4 ML SQ ONE (11:09)
[2020-12-03 11:18] LABS: Albumin 3.6 g/dL (3.4-5.0); Bilirubin Total 0.3 mg/dL (0.2-1.0); Magnesium 2.6 mg/dL (1.8-2.4); Potassium 3.9 mmol/L (3.5-5.1); Protein, Total 7.1 g/dL (6.4-8.2)
[2020-12-03] MEDS: INSULIN -REGULAR HUMAN 50 UNIT/0.5 ML ML SQ SCH ×4 (11:30→21:00)
[2020-12-03] MEDS: MORPHINE 2 MG/ML SYR IV PRN (12:25)
[2020-12-03] MEDS ORDERED: CYCLOBENZAPRINE 10 MG TAB PO ONE (14:00)
[2020-12-03] MEDS ORDERED: dexAMETHasone 4 MG/ML VIAL IV ONE ×2 (14:00→20:12)
[2020-12-03] MEDS: METOPROLOL TAR 25 MG TAB PO SCH ×2 (18:00→19:36)
[2020-12-03] MEDS ORDERED: CYCLOBENZAPRINE 10 MG TAB PO PRN (20:12)
[2020-12-03] MEDS: ATORVASTATIN 10 MG TAB PO SCH (20:42)
--- NOTE | 2020-12-03 20:59 | RAD REPORT ---
EXAM DESCRIPTION: CT - Angio Aorta For Dissection - 12/03/2020 6:50 am CLINICAL HISTORY: The patient is 75 years old and is Female; abd pain, right sided pain;Chest pain TECHNIQUE: Axial computed tomographic angiography images of the chest, abdomen and pelvis with intra venous contrast. Sagittal and coronal reformatted images were created and reviewed. This CT exam was performed using one or more of the following dose reduction techniques: automated exposure cont rol, adjustment of the mA and/or kV according to patient size, and/or use of iterative reconstruction technique. MIP reconstructed images were created and reviewed. COMPARISON: No relevant prior studies available. FINDINGS: VASCULATURE: Aorta: No aortic aneurysm or dissection. Pulmonary arteries: No PE identified. Great vessels of aortic arch: No acute findings. No dissection. No arterial occlusion or sign ificant stenosis. Celiac trunk and mesenteric arteries: No acute findings. No occlusion or significant stenosis. Renal arteries: No acute findings. No occlusion or significant stenosis. Iliac arteries: No acute findings. No occlusion or significant stenosis. CHEST: Lungs: No pulmonary consolidation or groundglass opacities to suggest pneumonia. Pleural space: No pleural effusion or pneumothorax. Heart: Unremarkable. No cardiomegaly. No significant pericardial effusion. ABDOMEN: Liver: Fatty liver. Gallbladder and bile ducts: Cholecystectomy without biliary dilatation or choledocholithiasis. Pancreas: Unremarkable. No ductal dilation. No mass. Spleen: Unremarkable. No splenomegaly. Adrenals: Unremarkable. No mass. Kidneys and ureters: Small accessory left renal vein. Main renal veins are unremarkable. No hydronephrosis. No solid mass. Stomach and bowel: No bowel dilatation or obstruction. No bowel wall thickening. PELVIS: Appendix: No findings to suggest acute appendicitis. Bladder: Unremarkable. No mass. Reproductive: Hysterectomy. No adnexal mass. CHEST, ABDOMEN and PELVIS: Intraperitoneal space: Unremarkable. No significant fluid collection. No free air. Bones/joints: 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. No thoracic or vertebral compression fracture. No acute rib fracture visualized. No dislocation. Soft tissues: Unremarkable. Lymph nodes: Unremarkable. No enlarged lymph nodes. IMPRESSION: 1. No aortic aneurysm or dissection. 2. Fatty liver. 3. Cholecystectomy without biliary dilatation or choledocholithiasis. 4. 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. 5. Additional non-emergent findings as above. Electronically signed by: Reyna Villalobos MD 12/03/2020 5:24 AM CDT Due to temporary technical issues with the PACS/Fluency reporting system, reports are being signed by the in house radiologists without review as a courtesy to insure prompt reporting. The interpreting radiologist is fully responsible for the content of the report.
[2020-12-03 22:18] LABS: Urine Appearance CLEAR (Clear); Urine Bilirubin NEGATIVE (Negative); Urine Blood NEGATIVE (Negative); Urine Color YELLOW (Yellow); Urine Glucose 3+ (Negative); Urine Protein NEGATIVE (Negative); Urine Specific Gravity 1.015 (1.005-1.030); Urine Urobilinogen 0.2 mg/dL (0.2-1.0); Urine pH 6.5 (5.0-7.0)
[2020-12-03 22:21] LABS: Urine Microscopic Reflex NO UMIC
[2020-12-04 00:54] LABS: Urine Bacteria <20 /HPF (<20); Urine RBC <5 /HPF (NONE SEEN)
[2020-12-04 04:37] LABS: Potassium 4.4 mmol/L (3.5-5.1)
[2020-12-04] MEDS: METOPROLOL TAR 25 MG TAB PO SCH ×2 (05:27→17:01)
[2020-12-04] MEDS: NA CHLORIDE 0.9% 1,000 ML IV SCH ×3 (05:28→23:11)
[2020-12-04] MEDS: INSULIN -REGULAR HUMAN 50 UNIT/0.5 ML ML SQ SCH ×4 (07:30→21:09)
[2020-12-04] MEDS: MORPHINE 2 MG/ML SYR IV PRN (08:19)
[2020-12-04] MEDS: SERTRALINE HCL 50 MG TAB PO SCH (08:20)
[2020-12-04] MEDS: ASPIRIN EC 81 MG TAB PO SCH (08:21)
[2020-12-04] MEDS: ENOXAPARIN 40 MG/0.4 ML SQ SCH (08:21)
[2020-12-04 08:26] LABS: Absolute Lymphocytes (CBC) 0.9 K/uL (0.7-4.9); Basophils % 0.2 % (0-1.3); Hematocrit 41.8 % (36.0-45.0); Lymphocytes % 12.9 % (15.3-44.8); MPV 9.5 fL (7.6-11.3); RBC Red Blood Cell Count 4.57 M/uL (3.86-4.86)
[2020-12-04] MEDS ORDERED: dexAMETHasone 4 MG/ML VIAL IV ONE (09:00)
[2020-12-04] MEDS ORDERED: ACETAMIN/CAFFEINE/BUTALB TAB PO ONE (09:00)
--- NOTE | 2020-12-04 12:31 | P.PN ---
Subjective Date of Service: 12/04/20 Patient is still having severe pain in the abd and flank; most of the family at bedside; concerned for pt pain; Review of Systems 10-point ROS is otherwise unremarkable Physical Examination - Vital Signs Temperature: 97.6 F Blood Pressure: 138/63 Pulse: 60 Respirations: 17 Pulse Ox (%): 99 - Physical Exam General: Alert, In no apparent distress, Oriented x3 Respiratory: Clear to auscultation bilaterally, Normal air movement Cardiovascular: Regular rate/rhythm, Normal S1 S2, No murmurs Gastrointestinal: Normal bowel sounds, Soft and benign, Non-distended, No tenderness Musculoskeletal: No clubbing, No swelling, No tenderness Neurological: Sensation intact, Cranial nerves 3-12 intact - Studies Medications List Reviewed: Yes Assessment & Plan - Problems (Diagnosis) (1) Acute pancreatitis Current Visit: Yes Status: Acute (2) Hypoglycemia Current Visit: Yes Status: Acute (3) Abdominal wall pain in right flank Current Visit: Yes Status: Acute (4) Chest pain, rule out acute myocardial infarction Current Visit: Yes Status: Acute - Plan PLAN: 1. Continue with aggressive IVFs 2. Continue with clear liquid-hypoglycemia and see how she tolerates it 3. Unknown etiology of acute pancreatitis with no alcohol history and cholecystectomy; triglycerides WNL; will review medications 4. Cardiac work-up negative 5. GI/DVT prophylaxis Discharge Plan: Home Plan to discharge in: Greater than 2 days - Advance Directives Does patient have a Living Will: No Does patient have a Durable POA for Healthcare: No - Code Status/Comfort Care Code Status Assessed: Yes Code Status: Full Code Critical Care: No Time Spent Managing PTS Care (In Minutes): 35
[2020-12-04] MEDS: ACYCLOVIR INJ 800 MG in NA CHLORIDE 0.9% 100 ML IVPB SCH ×2 (13:21→20:38)
[2020-12-04] MEDS: GABAPENTIN 300 MG CAP PO SCH ×2 (13:21→20:40)
[2020-12-04] MEDS: dexAMETHasone 4 MG/ML VIAL IV SCH ×2 (13:22→16:38)
[2020-12-04] MEDS ORDERED: ACYCLOVIR INJ 800 MG in NA CHLORIDE 0.9% 100 ML IVPB SCH ×2 (14:00→21:00)
[2020-12-04] MEDS: ATORVASTATIN 10 MG TAB PO SCH (20:41)
[2020-12-05] MEDS: NA CHLORIDE 0.9% 1,000 ML IV SCH ×2 (00:13→06:55)
[2020-12-05] MEDS: dexAMETHasone 4 MG/ML VIAL IV SCH ×2 (00:51→09:00)
[2020-12-05] MEDS: MORPHINE 2 MG/ML SYR IV PRN ×2 (02:32→14:35)
[2020-12-05] MEDS: METOPROLOL TAR 25 MG TAB PO SCH (06:26)
[2020-12-05] MEDS: INSULIN -REGULAR HUMAN 50 UNIT/0.5 ML ML SQ SCH ×3 (07:30→16:30)
[2020-12-05] MEDS: ENOXAPARIN 40 MG/0.4 ML SQ SCH (09:00)
[2020-12-05] MEDS: ACYCLOVIR INJ 800 MG in NA CHLORIDE 0.9% 100 ML IVPB SCH (09:08)
[2020-12-05] MEDS: SERTRALINE HCL 50 MG TAB PO SCH (09:09)
[2020-12-05] MEDS: ASPIRIN EC 81 MG TAB PO SCH (09:09)
[2020-12-05] MEDS: GABAPENTIN 300 MG CAP PO SCH ×2 (09:10→14:05)
--- NOTE | 2020-12-05 09:15 | P.DS ---
Discharge Date: 12/05/20 Primary Care Provider: Dr. Blanca Stout Disposition: ROUTINE DISCHARGE Discharge Condition: GOOD Reason for Admission: ACS rule out, elevated lipase - Problems (1) Acute pancreatitis Current Visit: Yes Status: Acute (2) Hypoglycemia Current Visit: Yes Status: Acute (3) Abdominal wall pain in right flank Current Visit: Yes Status: Acute (4) Chest pain, rule out acute myocardial infarction Current Visit: Yes Status: Acute Brief History of Present Illness: This is a 75 y/o F with HTN, HLD, CVA s/p 2010 who presents today with substernal chest pain x 2 days. The pain starts in the back and radiates to the chest, epigastrium, and bilateral arms with associated tingling and numbing sensations. Reports this has never happened in the past. She was seen at [facility] yesterday and was told every lab and imaging came back normal except for some bacteria in the urine. She was given ceftin, toradol, and meloxicam and was sent home. Pt came to ER today since pain has not improved. Denies any nausea, vomiting, fevers, chills. Denies any urinary symptoms. Hospital Course: Patient clinically doing better. Patient has pancreatitis along with chest pain and we ruled out for acute coronary syndrome. Lipase has improved. She is tolerating diet. Patient did develop some blisters in the upper part of the abdomen in a dermatomal pattern. This is shingles. She will be treated as an outpatient. Contact isolation recommended. Outpatient follow with Cardiology and GI as needed. Vital Signs/Physical Exam: Temp Pulse Resp BP Pulse Ox 96.1 F L 51 18 161/58 H 94 12/05/20 07:30 12/05/20 07:30 12/05/20 07:30 12/05/20 07:30 12/05/20 07:30 General: Alert, In no apparent distress, Oriented x3 Laboratory Data at Discharge: WBC 7.00 K/uL (4.3-10.9) 12/04/20 04:09 Hgb 13.6 g/dL (12.0-15.0) 12/04/20 04:09 Hct 41.8 % (36.0-45.0) 12/04/20 04:09 Plt Count 172 K/uL (152-406) 12/04/20 04:09 PT 11.3 SECONDS (9.5-12.5) 12/03/20 04:30 INR 0.98 12/03/20 04:30 Sodium 141 mmol/L (136-145) 12/04/20 04:09 Potassium 4.4 mmol/L (3.5-5.1) 12/04/20 04:09 BUN 24 mg/dL (7-18) H 12/04/20 04:09 Creatinine 0.83 mg/dL (0.55-1.3) 12/04/20 04:09 Glucose 98 mg/dL (74-106) 12/04/20 04:09 Magnesium 2.6 mg/dL (1.8-2.4) H 12/03/20 09:59 Total Bilirubin 0.3 mg/dL (0.2-1.0) 12/03/20 09:59 AST 41 U/L (15-37) H 12/03/20 09:59 ALT 41 U/L (12-78) 12/03/20 09:59 Alkaline Phosphatase 117 U/L (45-117) 12/03/20 09:59 Troponin I < 0.02 ng/mL (0.0-0.045) 12/03/20 15:20 Triglycerides 91 mg/dL (<150) 12/03/20 04:30 Cholesterol 166 mg/dL (<200) 12/03/20 04:30 HDL Cholesterol 84 mg/dL (40-60) H 12/03/20 04:30 Cholesterol/HDL Ratio 1.98 12/03/20 04:30 Lipase 151 U/L (73-393) 12/04/20 04:09 Home Medications: LORazepam [Ativan*] 0.5 mg PO TID PRN 05/23/14 Simvastatin [Zocor*] 20 mg PO BEDTIME 05/23/14 Cholecalciferol (Vitamin D3) [Vitamin D3] 2,000 units PO DAILY 12/03/20 Dapagliflozin Propanediol [Farxiga] 10 mg PO BEDTIME 12/03/20 Gabapentin [Neurontin*] 100 mg PO BEDTIME 12/03/20 Linagliptin [Tradjenta] 5 mg PO BEDTIME 12/03/20 Magnesium Oxide [Magnesium] 250 mg PO DAILY 12/03/20 Nifedipine [Procardia Xl] 30 mg PO DAILY 12/03/20 Sertraline [Zoloft*] 25 mg PO DAILY 12/03/20 lisinopriL [Prinivil*] 20 mg PO DAILY 12/03/20 Butalb/Acetaminophen/Caffeine [Fioricet 50-300-40 mg Capsule] 50 mg PO DAILY PRN 12/04/20 Acyclovir Tab [Zovirax*] 400 mg PO Q6HR #28 tablet 12/05/20 Acyclovir [Zovirax] 1 strip TP Q8H #1 oint...g. 12/05/20 predniSONE [Deltasone] 20 mg PO BID #14 tab 12/05/20 New Medications: predniSONE [Deltasone] 20 mg PO BID #14 tab Acyclovir [Zovirax] 1 strip TP Q8H #1 oint...g. Acyclovir Tab [Zovirax*] 400 mg PO Q6HR #28 tablet Physician Discharge Instructions: OK TO DC IV AND DC HOME FOLLOW-UP WITH PRIMARY CARE PROVIDER IN 1-2 WEEKS FOLLOW-UP WITH CARDIOLOGY IN 2-4 weeks RETURN TO THE ER IF symptoms worsen CALL or TEXT DR. DOYLE AT [phone] IF ANY QUESTIONS REGARDING HOSPITAL STAY. PLEASE CALL THE FLOOR AT [phone] IF ANY MEDICATION OR NURSING QUESTIONS. Diet: AHA Activity: Fall precautions Followup: NONE,NONE [Primary Care Provider] - Time spent managing pt's care (in minutes): 35
[2020-12-05 16:17] VITALS: O2SAT 99
[2020-12-05 17:11] VITALS: BP 139/64; TEMP 97.7
[2020-12-06] MEDS ORDERED: LOSARTAN POTASSIUM 50 MG TABLET PO ONE (09:34)
== END 2020-12-05 17:33 | disposition home or self-care (01) | DRG 440 ==
LOC: ER 03:59 → ERHOLD 07:43 → 2ND 11:02 → OBSVTOIN 12-04 12:35
PROVIDERS: ADMIT Hospitalist; ATTEND Hospitalist
DX: K85.90 Acute pancreatitis without necrosis or infection, unspecified (principal); E11.649 Type 2 diabetes mellitus with hypoglycemia without coma; I10 Essential (primary) hypertension; E78.5 Hyperlipidemia, unspecified; E03.9 Hypothyroidism, unspecified; Z86.73 Personal history of transient ischemic attack (TIA), and cerebral infarction without residual deficits; Z20.822 Contact with and (suspected) exposure to COVID-19
CPT/HCPCS: 36415; 71045; 71275; 74175; 80048; 80053; 80061; 80076; 81003; 81015; 82565; 82947; 83036; 83690; 83735; 83880; 84439; 84443; 84484; 85025; 85610; 93005; 96374; 96375; 99284; G0378; J0133; J1100; J1650; J2270; J2405; J2785; J7030; J7040; Q9967; U0003

== ENCOUNTER 2020-12-23 02:58 | Observation (INO) | payer OTHER ==
[2020-12-23] MEDS ORDERED: FAMOTIDINE 20 MG/2 ML VIAL IV ONE (03:59)
[2020-12-23 04:11] LABS: Urine Blood Negative (Negative); Urine Glucose 3+ (Negative); Urine Protein Negative (Negative); Urine Specific Gravity 1.015 (1.005-1.030); Urine pH 8.5 (5.0-7.0)
[2020-12-23 04:16] LABS: Absolute Lymphocytes (CBC) 1.6 K/uL (0.7-4.9); Basophils % 0.4 % (0-1.3); Hematocrit 35.9 % (36.0-45.0); Lymphocytes % 29.1 % (15.3-44.8); RBC Red Blood Cell Count 3.76 M/uL (3.86-4.86)
[2020-12-23 04:17] LABS: Protime INR 0.92
[2020-12-23 04:31] LABS: Sodium Level 139 mmol/L (136-145)
[2020-12-23 04:32] LABS: ALT/SGPT 45 U/L (12-78); AST/SGOT 27 U/L (15-37); Albumin 3.1 g/dL (3.4-5.0); Alkaline Phosphatase 149 U/L (45-117); BUN Blood Urea Nitrogen 33 mg/dL (7-18); Bicarbonate 24 mmol/L (21-32); Bilirubin Direct < 0.1 mg/dL (0-0.2); Bilirubin Total 0.2 mg/dL (0.2-1.0); Glucose Level 219 mg/dL (74-106); Lipase 202 U/L (73-393); Magnesium 2.4 mg/dL (1.8-2.4); NT PRO-BNP 77 pg/mL (<450); Protein, Total 6.3 g/dL (6.4-8.2); Troponin (Emerg Dept Use Only) < 0.02 ng/mL (0.0-0.045)
[2020-12-23] MEDS ORDERED: ONDANSETRON 4 MG/2 ML VIAL ONE ×2 (04:32→08:08)
[2020-12-23] MEDS ORDERED: MORPHINE 2 MG/ML SYR ONE (04:33)
--- NOTE | 2020-12-23 04:41 | ER ---
Nurse's Notes [facility] Name: Sondra Azevedo Age: 75 yrs Sex: Female : 1945 Arrival Date: 12/23/2020 Time: 03:00 Bed 15 Private MD: Diagnosis: Chest pain, unspecified;Abdominal tenderness;Obesity, unspecified;Unspecified kidney failure-ACUTE ON CHRONIC;Peptic ulcer, site unspecified, unspecified as acute or chronic, without hemorrhage or perforation Presentation: 12/23 03:16 Chief complaint: Patient states: Pt arrived with chest pain that started around 1800. wg Pt denies SOB, Abd pain, N/V/D, dizziness. Daughter states pt had shingles several weeks ago but it cleared up and doesn't believe this is related to that. Pt moaning and holding chest and saying it hurts 01/16. Coronavirus screen: Vaccine status: Patient reports receiving the 2nd dose of the covid vaccine. Date September 07, 2020 At this time, the client does not indicate any symptoms associated with coronavirus-19. Ebola Screen: Patient negative for fever greater than or equal to 101.5 degrees Fahrenheit, and additional compatible Ebola Virus Disease symptoms Patient denies exposure to infectious person. Patient denies travel to an Ebola-affected area in the 21 days before illness onset. No symptoms or risks identified at this time. Initial Sepsis Screen: Does the patient meet any 2 criteria? No. Patient's initial sepsis screen is negative. Does the patient have a suspected source of infection? No. Patient's initial sepsis screen is negative. Risk Assessment: Do you want to hurt yourself or someone else? Patient reports no desire to harm self or others. Onset of symptoms was December 22, 2020 at 18:00. Care prior to arrival: None. 03:16 Method Of Arrival: Wheelchair 03:16 Acuity: SONALI 3 wg Triage Assessment: 03:22 General: Appears distressed, uncomfortable, obese, Behavior is cooperative, anxious. wg Pain: Complains of pain in chest. EENT: No deficits noted. Neuro: No deficits noted. Cardiovascular: Reports chest pain, Denies diaphoresis, lightheadedness, nausea, shortness of breath, vomiting. Cardiovascular: reproducible on palpation to midsternal chest. Respiratory: No deficits noted. GI: No deficits noted. : No deficits noted. Derm: No deficits noted. Musculoskeletal: No deficits noted. Historical: - Allergies: 03:20 Ibuprofen; wg - Home Meds: 03:20 gabapentin oral [Active]; Simvastatin Oral [Active]; Lisinopril Oral [Active]; wg sertraline oral [Active]; Metformin Oral [Active]; Lorazepam Oral [Active]; - PMHx: 03:22 CVA; DM; Hyperlipidemia; Hypertension; Anxiety; Depressive disorder; wg - Immunization history:: Adult Immunizations up to date. - Social history:: Smoking status: Patient denies any tobacco usage or history of. - Family history:: not pertinent. Screenin:51 Abuse screen: Denies threats or abuse. Nutritional screening: No deficits noted. df1 Tuberculosis screening: No symptoms or risk factors identified. 03:52 Fall Risk None identified. df1 Assessment: 03:52 Pain: Pain began suddenly, 1 day ago. df1 03:52 Pain: Pain radiates to abdomen. df1 Vital Signs: 03:16 BP 130 / 104; Pulse 62; Resp 26; Temp 98.4; Pulse Ox 100% on R/A; Weight 62.6 kg; wg Height 5 ft. 0 in. (152.40 cm); Pain 10/10; 03:51 BP 140 / 59; Pulse 61; Resp 18; Pulse Ox 100% on R/A; df1 04:19 BP 133 / 55; Pulse 60; Resp 18; Pulse Ox 99% on R/A; df1 04:48 BP 133 / 53; Pulse 61; Resp 18; Pulse Ox 100% on R/A; df1 05:34 BP 129 / 71; Pulse 18; Resp 63; Pulse Ox 95% on R/A; df1 03:16 Body Mass Index 26.95 (62.60 kg, 152.40 cm) ED Course: 03:00 Patient arrived in ED. wm 03:17 Michael Hector MD is Attending Physician. tushar 03:20 Triage completed. wg 03:22 Arm band placed on left wrist. wg 03:32 Lupe Mancera is Primary Nurse. df1 03:32 CBC with Automated Diff Sent. df1 03:32 Basic Metabolic Panel Sent. df1 03:32 Lipase Sent. df1 03:32 Basic Metabolic Panel Sent. df1 03:32 CBC with Diff Sent. df1 03:32 XRAY Chest (1 view) Sent. df1 03:33 Patient has correct armband on for positive identification. Placed in gown. Bed in low df1 position. Call light in reach. Side rails up X 1. Adult w/ patient. 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 Pulse ox on. NIBP on. 03:33 Inserted saline lock: 20 gauge in right antecubital area, using aseptic technique. df1 Patient maintains SpO2 saturation greater than 95% on room air. 03:36 XRAY Chest (1 view) In Process Unspecified. EDMS 04:39 Sharif Herndon DO is Hospitalizing Provider. tushar 04:41 CT Abd/Pelvis - IV Contrast Only In Process Unspecified. EDMS 05:43 No provider procedures requiring assistance completed. df1 06:26 Patient admitted, IV remains in place. df1 Administered Medications: 03:53 Drug: Pepcid (famotidine) 20 mg Route: IVP; Site: right antecubital; df1 04:47 Follow up: Response: Pain is decreased df1 04:16 Drug: morphine 2 mg Route: IVP; Site: right antecubital; df1 04:47 Follow up: Response: Pain is decreased df1 04:16 Drug: Zofran (Ondansetron) 4 mg Route: IVP; Site: right antecubital; df1 04:47 Follow up: Response: Nausea is decreased df1 05:10 Follow up: Response: Nausea is decreased df1 04:45 Drug: NS 0.9% 1000 ml Route: IV; Rate: 1 bolus; Site: right antecubital; df1 05:02 Drug: Mucomyst - Acetylcysteine 600 mg Route: PO; df1 05:11 Follow up: Response: No adverse reaction df1 05:11 Follow up: Response: No adverse reaction df1 05:11 Drug: GI Cocktail without - (Maalox Suspension 30 ml, Lidocaine Liquid 2 % 15 df1 ml) Route: PO; 05:11 Follow up: Response: No adverse reaction df1 Outcome: 04:40 Decision to Hospitalize by Provider. tushar 06:25 Admitted to ER Hold. Please see [facility] for further documentation. df1 06:25 Condition: stable 06:25 Instructed on the need for admit. 09:58 Patient left the ED. ss Signatures: Dispatcher [employer] Michael Ordoñez MD MD cha Smirch, Shelby, STAN RN Deepali Linton Liam, RN wg Furlich, Dawn df1
--- NOTE | 2020-12-23 04:41 | EDPHYS ---
Physician Documentation [facility] Name: Sondra Azevedo Age: 75 yrs Sex: Female : 1945 Arrival Date: 12/23/2020 Time: 03:00 Bed 15 Private MD: ANDRES Physician Michael Hector HPI: 12/23 03:35 This 75 yrs old Female presents to ER via Wheelchair with complaints of Chest tushar Pain > 30 y/o. 03:35 The patient or guardian reports chest pain that is located primarily in the epigastric tushar area, anterior chest wall. Onset: 3 day(s) ago. The pain does not radiate. Associated signs and symptoms: The patient has no apparent associated signs or symptoms. The chest pain is described as burning, a pressure. Duration: The patient or guardian reports multiple episodes, that are intermittent. Modifying factors: The symptoms are alleviated by nothing. the symptoms are aggravated by nothing. Severity of pain: At its worst the pain was moderate in the emergency department the pain is unchanged. The patient has not experienced similar symptoms in the past. Historical: - Allergies: 03:20 Ibuprofen; wg - Home Meds: 03:20 gabapentin oral [Active]; Simvastatin Oral [Active]; Lisinopril Oral [Active]; wg sertraline oral [Active]; Metformin Oral [Active]; Lorazepam Oral [Active]; - PMHx: 03:22 CVA; DM; Hyperlipidemia; Hypertension; Anxiety; Depressive disorder; wg - Immunization history:: Adult Immunizations up to date. - Social history:: Smoking status: Patient denies any tobacco usage or history of. - Family history:: not pertinent. ROS: 03:35 Constitutional: Negative for fever, chills, and weight loss. tushar Exam: 03:35 Constitutional: This is a well developed, well nourished patient who is awake, alert, tushar and in no acute distress. Head/Face: Normocephalic, atraumatic. Eyes: Pupils equal round and reactive to light, extra-ocular motions intact. Lids and lashes normal. Conjunctiva and sclera are non-icteric and not injected. Cornea within normal limits. Periorbital areas with no swelling, redness, or edema. ENT: Nares patent. No nasal discharge, no septal abnormalities noted. Tympanic membranes are normal and external auditory canals are clear. Oropharynx with no redness, swelling, or masses, exudates, or evidence of obstruction, uvula midline. Mucous membranes moist. Neck: Trachea midline, no thyromegaly or masses palpated, and no cervical lymphadenopathy. Supple, full range of motion without nuchal rigidity, or vertebral point tenderness. No Meningismus. Chest/axilla: Normal chest wall appearance and motion. Nontender with no deformity. No lesions are appreciated. Cardiovascular: Regular rate and rhythm with a normal S1 and S2. No gallops, murmurs, or rubs. Normal PMI, no JVD. No pulse deficits. Respiratory: Lungs have equal breath sounds bilaterally, clear to auscultation and percussion. No rales, rhonchi or wheezes noted. No increased work of breathing, no retractions or nasal flaring. Back: No spinal tenderness. No costovertebral tenderness. Full range of motion. Female : Normal external genitalia. Skin: Warm, dry with normal turgor. Normal color with no rashes, no lesions, and no evidence of cellulitis. MS/ Extremity: Pulses equal, no cyanosis. Neurovascular intact. Full, normal range of motion. Neuro: Awake and alert, GCS 15, oriented to person, place, time, and situation. Cranial nerves II-XII grossly intact. Motor strength 5/5 in all extremities. Sensory grossly intact. Cerebellar exam normal. Normal gait. Psych: Awake, alert, with orientation to person, place and time. Behavior, mood, and affect are within normal limits. 03:35 Abdomen/GI: Inspection: abdomen appears normal, Palpation: moderate abdominal tenderness, in the epigastric area, right upper quadrant and left upper quadrant, Liver: no appreciated palpable abnormalities, Hernia: not appreciated. Vital Signs: 03:16 BP 130 / 104; Pulse 62; Resp 26; Temp 98.4; Pulse Ox 100% on R/A; Weight 62.6 kg; wg Height 5 ft. 0 in. (152.40 cm); Pain 10/10; 03:51 BP 140 / 59; Pulse 61; Resp 18; Pulse Ox 100% on R/A; df1 04:19 BP 133 / 55; Pulse 60; Resp 18; Pulse Ox 99% on R/A; df1 04:48 BP 133 / 53; Pulse 61; Resp 18; Pulse Ox 100% on R/A; df1 05:34 BP 129 / 71; Pulse 18; Resp 63; Pulse Ox 95% on R/A; df1 03:16 Body Mass Index 26.95 (62.60 kg, 152.40 cm) wg MDM: 03:17 Patient medically screened. tushar 03:35 Differential diagnosis: abnormal EKG, coronary artery disease congestive heart failure tushar gastritis, hiatal hernia, pancreatitis, pneumonia, pulmonary embolus, stable angina, unstable angina. HEART Score: ECG: Non specific repolarization disturbance / LBTB / PM (1), Age: > 45 and < 65 years (1), Risk Factors: > or = 3 Risk factors for atherosclerotic disease (2), [Hypercholesterolemia] [Hypertension] [+ Family HX] [Obesity] Troponin: < or = 1 x Normal Limit (0). The patient was not given aspirin in the Emergency Department. Not indicated due to patient's past medical history. The patient's deep vein thrombosis risk score was calculated as follows: Total Score: 0. This patient was found to be at low risk for a deep vein thrombosis by using the Well's assessment criteria. The patient's pulmonary embolism risk score was calculated as follows: Total Score: 0-2 points. This patient was found to be at low risk for a pulmonary embolism by using the Well's assessment criteria. HENRY Risk Score: TOTAL SCORE = 0. Data reviewed: vital signs, nurses notes, lab test result(s), EKG, radiologic studies, plain films. Data interpreted: guest relations executive: Pulse oximetry: on room air is 100 %. Test interpretation: by ED physician or midlevel provider: ECG, plain radiologic studies. Counseling: I had a detailed discussion with the patient and/or guardian regarding: the historical points, exam findings, and any diagnostic results supporting the discharge/admit diagnosis, lab results, radiology results. 12/23 03:18 Order name: Basic Metabolic Panel [facility] 12/23 03:18 Order name: CBC with Diff tushar 12/23 03:18 Order name: LFT's; Complete Time: 04:32 tushar 12/23 03:18 Order name: Magnesium; Complete Time: 04:32 tushar 12/23 03:18 Order name: NT PRO-BNP; Complete Time: 04:32 tushar 12/23 03:18 Order name: PT-INR; Complete Time: 04:53 12/23 03:18 Order name: Troponin (emerg Dept Use Only); Complete Time: 04:32 [facility] 12/23 03:18 Order name: Lipase; Complete Time: 04:32 [facility] 12/23 03:19 Order name: Basic Metabolic Panel; Complete Time: 04:32 EDME 12/23 03:19 Order name: CBC with Automated Diff; Complete Time: 04:41 EDMS 12/23 04:10 Order name: Urine Dipstick-Ancillary; Complete Time: 04:13 EDME 12/23 04:21 Order name: SARS-COV-2 RT PCR; Complete Time: 04:25 EDMS 12/23 04:30 Order name: CREATININE WHOLE BLOOD; Complete Time: 04:31 EDME 12/23 03:18 Order name: XRAY Chest (1 view) [facility] 12/23 03:18 Order name: EKG; Complete Time: 03:19 [facility] 12/23 03:18 Order name: Cardiac monitoring; Complete Time: 03:32 [facility] 12/23 03:18 Order name: EKG - Nurse/Tech; Complete Time: 03:32 [facility] 12/23 03:18 Order name: IV Saline Lock; Complete Time: 03:32 [facility] 12/23 03:18 Order name: Labs collected and sent; Complete Time: 03:32 [facility] 12/23 03:18 Order name: O2 Per Protocol; Complete Time: 03:32 [facility] 12/23 03:18 Order name: O2 Sat Monitoring; Complete Time: 03:32 [facility] 12/23 03:34 Order name: CT Abd/Pelvis - IV Contrast Only [facility] 12/23 08:44 Order name: Glucose, Ancillary Testing EDMS Administered Medications: 03:53 Drug: Pepcid (famotidine) 20 mg Route: IVP; Site: right antecubital; df1 04:47 Follow up: Response: Pain is decreased df1 04:16 Drug: morphine 2 mg Route: IVP; Site: right antecubital; df1 04:47 Follow up: Response: Pain is decreased df1 04:16 Drug: Zofran (Ondansetron) 4 mg Route: IVP; Site: right antecubital; df1 04:47 Follow up: Response: Nausea is decreased df1 05:10 Follow up: Response: Nausea is decreased df1 04:45 Drug: NS 0.9% 1000 ml Route: IV; Rate: 1 bolus; Site: right antecubital; df1 05:02 Drug: Mucomyst - Acetylcysteine 600 mg Route: PO; df1 05:11 Follow up: Response: No adverse reaction df1 05:11 Follow up: Response: No adverse reaction df1 05:11 Drug: GI Cocktail without - (Maalox Suspension 30 ml, Lidocaine Liquid 2 % 15 df1 ml) Route: PO; 05:11 Follow up: Response: No adverse reaction df1 Disposition Summary: 12/23/20 04:40 Hospitalization Ordered Hospitalization Status: Observation tushar Provider: Sharif Herndon cha Condition: Stable tushar Problem: new tushar Symptoms: have improved tushar Bed/Room Type: Standard tushar Location: [facility] ER HOLD(12/23/20 05:23) tl1 Room Assignment: ERHOLD-(12/23/20 05:23) tl1 Diagnosis - Chest pain, unspecified tushar - Abdominal tenderness tushar - Obesity, unspecified tushar - Unspecified kidney failure - ACUTE ON CHRONIC tushar - Peptic ulcer, site unspecified, unspecified as acute or chronic, without hemorrhage tushar or perforation Discharge Instructions: - Discharge Summary Sheet ss Forms: - Medication Reconciliation Form tushar - SBAR form tushar Signatures: Dispatcher [employer] EDMichael Lindsey MD MD cha Attema, Lee, BRAND DESIGNER-C BRAND DESIGNER-Cla1 Zulma Lazcano, STAN RN tl1 Josep Jarvis RN wg Furlich, Dawn df1 Corrections: (The following items were deleted from the chart) 03:28 03:19 CORONAVIRUS+MROzLAB.BRZ ordered. EDME EDME 05:23 04:40 Telemetry/MedSurg (observation) [facility] tl1 05:23 04:40 tushar tl1
[2020-12-23] MEDS ORDERED: NA CHLORIDE 0.9% 1,000 ML ONE (05:07)
--- NOTE | 2020-12-23 05:14 | P.HP ---
Certification for Inpatient Patient admitted to: Observation With expected LOS: <2 Midnights Patient will require the following post-hospital care: None Practitioner: I am a practitioner with admitting privileges, knowledge of patient current condition, hospital course, and medical plan of care. Services: Services provided to patient in accordance with Admission requirements found in Title 42 Section 412.3 of the Code of Federal Regulations Patient History Date of Service: 12/23/20 History of Present Illness: 75-year-old female with history of diabetes metas type II, CKD 3, hypertension, hyperlipidemia presents emergency department for chest pain/epigastric pain. Patient was recently seen in the emergency department and admitted last month for similar episode, at that time patient had elevated lipase level and also shingles. Patient was treated for shingles and completed antiviral and steroid therapies, currently on [place] for pain. Patient reports that this morning she had a significantly different pain that she had experience with a shingles in her chest that then migrated to her epigastric region of her abdomen. Patient with moderate epigastric pain on palpation, EKG without acute changes labs were significant for mild worsening renal function with GFR 37 creatinine 1.4 BUN 33, patient's baseline GFR is around 55 CT abdomen pelvis pending, patient did have some relief from Pepcid IV, patient was meant to have stress test during previous admission but this was unable to be obtained at the time. Vital signs stable this time, ED provider wishes to admit under observation for chest pain rule out. Allergies ibuprofen Allergy (Mild, Verified 05/23/14 01:38) ROCK, Nausea, Vomitting benzonatate [From Tessalon Perles] Adverse Reaction (Mild, Verified 05/23/14 01:38) Confusion Home Medications: LORazepam [Ativan*] 0.5 mg PO TID PRN 05/23/14 Simvastatin [Zocor*] 20 mg PO BEDTIME 05/23/14 Cholecalciferol (Vitamin D3) [Vitamin D3] 2,000 units PO DAILY 12/03/20 Dapagliflozin Propanediol [Farxiga] 10 mg PO BEDTIME 12/03/20 Gabapentin [Neurontin*] 100 mg PO BEDTIME 12/03/20 Linagliptin [Tradjenta] 5 mg PO BEDTIME 12/03/20 Magnesium Oxide [Magnesium] 250 mg PO DAILY 12/03/20 Nifedipine [Procardia Xl] 30 mg PO DAILY 12/03/20 Sertraline [Zoloft*] 25 mg PO DAILY 12/03/20 lisinopriL [Prinivil*] 20 mg PO DAILY 12/03/20 Butalb/Acetaminophen/Caffeine [Fioricet 50-300-40 mg Capsule] 50 mg PO DAILY PRN 12/04/20 Acyclovir Tab [Zovirax*] 400 mg PO Q6HR #28 tablet 12/05/20 Acyclovir [Zovirax] 1 strip TP Q8H #1 oint...g. 12/05/20 Hydrocodone 7.5/APAP 325 [[place] 7.5/325 mg] 1 tab PO Q8H PRN #20 tab 12/05/20 predniSONE [Deltasone] 20 mg PO BID #14 tab 12/05/20 - Past Medical/Surgical History Diabetic: Yes -: DM -: HTN -: Hypothyroidism -: Hyperlipidemia -: CVA 2010 -: Shingles -: Cataract - bilateral -: Heart Cath -: -: Hysterectomy -: Appy -: Migdalia -: breast biopsy Psychosocial/ Personal History: lives with and kids - Social History Smoking Status: Never smoker Alcohol use: No CD- Drugs: No Caffeine use: Yes Place of Residence: Home Review of Systems 10-point ROS is otherwise unremarkable Gastrointestinal: Abdominal Pain Physical Examination - Physical Exam General: Alert, In no apparent distress, Oriented x3 HEENT: Atraumatic, PERRLA, Mucous membr. moist/pink, EOMI, Sclerae nonicteric Neck: Supple, 2+ carotid pulse no bruit, No LAD, Without JVD or thyroid abnormality Respiratory: Clear to auscultation bilaterally, Normal air movement Cardiovascular: Regular rate/rhythm, Normal S1 S2 Gastrointestinal: Normal bowel sounds, Tenderness (Mild to moderate epigastric tenderness) Musculoskeletal: No tenderness Integumentary: Rash(es) (Vesicular healing rash noted to right flank area) Neurological: Normal gait, Normal speech, Normal strength at 5/5 x4 extr, Normal tone, Normal affect Lymphatics: No axilla or inguinal lymphadenopathy - Studies Laboratory Data (last 24 hrs) 12/23/20 03:48: PT 10.6, INR 0.92 12/23/20 03:48: WBC 5.40, Hgb 11.7 L, Hct 35.9 L, Plt Count 132 L 12/23/20 03:48: Sodium 139, Potassium 4.0, BUN 33 H, Creatinine 1.40 H, Glucose 219 H, Magnesium 2.4, Total Bilirubin 0.2, AST 27, ALT 45, Alkaline Phosphatase 149 H, Lipase 202 Assessment and Plan - Plan Assessment: Chest pain/epigastric pain rule out ACS ALINA superimposed on CKD 3 Diabetes mellitus type 2 Hypertension Hyperlipidemia Plan: Chest pain/epigastric pain rule out ACS: Monitor on telemetry, trend troponins, patient recovering from shingles currently reports pain is significantly different than previous. Also with history of pancreatitis recently lipase negative. Pain with palpation of the epigastric region possibly GERD/esophagitis. Will treat with Protonix and consult cardiology. ALINA superimposed on CKD 3: We will provide with IV fluids, consult nephrology for evaluation. Diabetes mellitus type 2: A [facility] Accu-Chek, sliding scale insulin. Hypertension: Obtain and continue home meds Hyperlipidemia: Obtain and continue home meds DVT PPX: Lovenox Code status: Full Discharge Plan: Home Plan to discharge in: 24 Hours - Advance Directives Does patient have a Living Will: No Does patient have a Durable POA for Healthcare: No - Code Status/Comfort Care Code Status Assessed: Yes (Full code) Critical Care: No Time Spent Managing Pts Care (In Minutes): 55
[2020-12-23] MEDS ORDERED: ACETYLCYST 6,000 MG/30 ML VIAL ONE (05:22)
[2020-12-23] MEDS ORDERED: MAGNES/ALUMIN/SIMET 30ML UCUP ONE (05:29)
[2020-12-23] MEDS ORDERED: LIDOCAINE VISCOUS 2% SOLN 15 ML UDC ONE (05:29)
[2020-12-23] MEDS ORDERED: ONDANSETRON 4 MG/2 ML VIAL IV PRN (06:13)
[2020-12-23] MEDS ORDERED: SODIUM CHLORIDE 0.9% 10ML INJ IV PRN (06:13)
[2020-12-23] MEDS ORDERED: HYDROCODONE/APAP 5/325 MG TAB PO PRN (06:13)
[2020-12-23] MEDS ORDERED: D5 0.9 NS 1,000 ML IV SCH (06:13)
--- NOTE | 2020-12-23 06:21 | P.PN ---
Subjective Date of Service: 12/23/20 Primary Care Provider: Dr. Rios(Sabianist); Cardiology-Dr. Perrin Subjective: Improving (Patient without epigastric pain or chest pain. No significant nausea or vomiting.) Physical Examination - Studies Laboratory Data (last 24 hrs) 12/23/20 03:48: PT 10.6, INR 0.92 12/23/20 03:48: WBC 5.40, Hgb 11.7 L, Hct 35.9 L, Plt Count 132 L 12/23/20 03:48: Sodium 139, Potassium 4.0, BUN 33 H, Creatinine 1.40 H, Glucose 219 H, Magnesium 2.4, Total Bilirubin 0.2, AST 27, ALT 45, Alkaline Phosphatase 149 H, Lipase 202 Assessment & Plan Discharge Plan: Home Plan to discharge in: 24 Hours Physician Review Additional Text: COVID: Negative CT Scan: Early changes of cirrhosis Bilateral renal atrophy Left common iliac soft tissue density measuring 1.7 cm likely representing left ovary or prominent left lymph node Moderate arthrosclerosis Lungs clear Stomach and small bowel unremarkable. Colon Unremarkable. Physical exam: General: Alert, In no apparent distress, Oriented x3 HEENT: Atraumatic, PERRLA, Mucous membr. moist/pink, EOMI, Sclerae nonicteric Neck: Supple, 2+ carotid pulse no bruit, No LAD, Without JVD or thyroid abnormality Respiratory: Clear to auscultation bilaterally, Normal air movement Cardiovascular: Regular rate/rhythm, Normal S1 S2 Gastrointestinal: Normal bowel sounds, Tenderness (Mild to moderate epigastric tenderness) Musculoskeletal: No tenderness Integumentary: Rash(es) (Vesicular healing rash noted to right flank area) Neurological: Normal gait, Normal speech, Normal strength at 5/5 x4 extr, Normal tone, Normal affect Lymphatics: No axilla or inguinal lymphadenopathy Impression: Chest pain/epigastric pain likely related to underlying GERD ALINA superimposed on CKD [address] finding of renal atrophy Diabetes mellitus type [address] finding of early cirrhosis Recent herpes zoster Plan: Chest pain/epigastric pain likely related to underlying GERD: Symptoms resolved with GI cocktail. Cardiac enzymes unremarkable. Patient sees cardiology as an outpatientDr. Perrin. Patient is scheduled for cardiac stress test as an outpatient. Patient recently recovered with shingles. Patient was tapered off her prednisone. Symptoms likely related to underlying GERD. Will recommend Protonix 40 mg daily at discharge. Patient is taking gabapentin for her zoster. Case discussed with cardiology. No intervention required. Recommend follow-up with PCP within 1 week. 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 Set up outpatient cardiac stress test. Recommend follow-up with GI as an outpatient to further evaluate. Patient would benefit with EGD and colonoscopy in the future. Education on GERD provided. ALINA superimposed on CKD [address] finding of renal atrophy: Mild dehydration noted. IV fluids was provided. Renal function improved. Patient with underlying chronic renal disease. Recommend follow-up with nephrology as an outpatient to further monitor and adjust. Recommend to recheck labBMP in 1 week to monitor progress. Card. Diabetes mellitus type 2: Continue with sliding scale. Continue with home medication Hypertension: Continue home medication Hyperlipidemia: Continue home medication CT finding of early cirrhosis: Recommend GI evaluation as an outpatient to further address. Education on cirrhosis provided. Likely with underlying fatty liver Recent herpes zoster: Patient may continue with gabapentin as directed. Follow- up with PCP to further address. Patient finished course with oral steroid. DVT PPX: Lovenox Code status: Full Advanced care planning: Home at discharge Time Spent Managing Pts Care (In Minutes): 55
[2020-12-23 06:53] VITALS: BMI 28.0
[2020-12-23] MEDS ORDERED: INSULIN -REGULAR HUMAN 50 UNIT/0.5 ML ML SQ SCH (07:30)
[2020-12-23] MEDS ORDERED: MORPHINE 4 MG/ML SYR ONE (08:08)
[2020-12-23] MEDS ORDERED: ASPIRIN 81 MG CHEWABLE TABLET ONE (08:08)
[2020-12-23 08:18] VITALS: BP 120/57; TEMP 97.6
--- NOTE | 2020-12-23 08:23 | P.DS ---
Admission Date: 12/23/20 Discharge Date: 12/23/20 Primary Care Provider: Dr. Rios(Druze); Cardiology-Dr. Perrin Disposition: ROUTINE DISCHARGE Discharge Condition: GOOD Reason for Admission: Epigastric/chest pain Consultations: Cardiology-Dr. Anderson Procedures: COVID: Negative CT Scan: Early changes of cirrhosis Bilateral renal atrophy Left common iliac soft tissue density measuring 1.7 cm likely representing left ovary or prominent left lymph node Moderate arthrosclerosis Lungs clear Stomach and small bowel unremarkable. Colon Unremarkable. Medical problem list: Chest pain/epigastric pain likely related to underlying GERD ALINA superimposed on CKD [address] finding of renal atrophy Diabetes mellitus type [address] finding of early cirrhosis Recent herpes zoster Brief History of Present Illness: 75-year-old female with history of diabetes mellitus type 2, chronic renal disease stage III, hypertension, hyperlipidemia presented with chest pain and epigastric pain. Patient recently hospitalized last month for similar episode. She was found to have shingles. She was given antiviral and steroid medication. She recently finished her steroid medication. Patient was given GI cocktail in the emergency room with relief. Initial cardiac enzymes unremarkable. Patient admitted for further evaluation and treatment. Hospital Course: Patient presented with chest pain and epigastric pain. Patient was admitted for further evaluation and observation. Cardiac enzymes unremarkable. Symptoms resolved with GI cocktail. Patient recently treated for herpes zoster with antiviral and steroid treatment. Patient is seen by cardiology as an outpatient. CT scan shows no GI abnormality. Early cirrhosis, possible left lymph node near the left ovary noted on CT scan. Renal atrophy was also noted patient with history of chronic renal disease. Patient with mild dehydration. Patient given IV fluids with improvement. Symptoms have resolved. Case discussed with cardiology. No intervention required at this time. Symptoms likely related to underlying GERD. At discharge patient will continue with Protonix 40 mg daily. Recommend follow-up with GI as an outpatient to further evaluate. Patient will likely require EGD and colonoscopy to further address. Education on GERD will be provided. Recommend follow-up with PCP within 1 week to follow-up his hospitalization continue her care. Patient is seen by cardiology as an outpatient. Recommend follow-up with her cardiologistDr. Perrin within 1 week to follow-up his hospitalization. Patient is scheduled for outpatient cardiac stress test for further evaluate. Patient with acute on chronic renal disease stage III. CT showed renal atrophy. Patient has underlying chronic renal disease. Patient was given IV fluids with improvement. Future medications will need to be renally dosed. Recommend to establish care with nephrology as an outpatient to further monitor and address. Recommend to recheck labBMP in 1 week to monitor her progress. Patient with diabetes mellitus type 2. At discharge she may continue with her current medicationsTradjenta 5 mg daily and Farxiga 10 mg daily. Recommend to maintain blood sugar less than 140 fasting and less than 200 after meals. Recommend to recheck hemoglobin A1c every 3 months to monitor progress. Further adjustment in medication may be required due to her chronic renal disease. This can be done with the help of nephrology. Recommend follow-up with her PCP to further monitor and adjust medication. Patient with history of hypertension and hyperlipidemia. At discharge patient will continue with her current medications lisinopril 20 mg daily, Procardia XL 30 mg daily, and Zocor 20 mg daily. Recommend blood pressure to maintain less than 130/80. Further adjustment of medication may be required. This can be done with the help of her PCP. Recommend follow-up with PCP to further monitor and adjust medication. Patient with CT finding of early cirrhosis. Patient likely with underlying fatty liver. Recommend follow-up with GI to further evaluate. Patient with recent herpes zoster. Patient may continue with her medication for paingabapentin 100 mg 3 times a day as needed for pain. Patient also takes hydrocodone as needed for pain. Further adjustment in medication can be done by her PCP. Patient with depression with anxiety. At discharge she can continue with her medication including Zoloft 25 mg daily. Patient also takes Ativan 0.5 mg 3 times a day as needed for anxiety. Vital Signs/Physical Exam: Temp Pulse Resp BP Pulse Ox 97.6 F 64 18 120/57 L 98 12/23/20 08:16 12/23/20 08:16 12/23/20 06:54 12/23/20 08:16 12/23/20 08:16 General: Alert, In no apparent distress, Oriented x3, Cooperative HEENT: Atraumatic Neck: Supple Respiratory: Clear to auscultation bilaterally, Normal air movement Cardiovascular: Normal pulses, Regular rate/rhythm Gastrointestinal: Normal bowel sounds, No ascites, No tenderness, No masses, No rebound, No guarding Musculoskeletal: No erythema, No tenderness, No warmth Integumentary: No tenderness/swelling Neurological: Normal speech, Normal strength at 5/5 x4 extr, Normal tone Laboratory Data at Discharge: WBC 5.40 K/uL (4.3-10.9) 12/23/20 03:48 Hgb 11.7 g/dL (12.0-15.0) L 12/23/20 03:48 Hct 35.9 % (36.0-45.0) L 12/23/20 03:48 Plt Count 132 K/uL (152-406) L 12/23/20 03:48 PT 10.6 SECONDS (9.5-12.5) 12/23/20 03:48 INR 0.92 12/23/20 03:48 Sodium 139 mmol/L (136-145) 12/23/20 03:48 Potassium 4.0 mmol/L (3.5-5.1) 12/23/20 03:48 BUN 33 mg/dL (7-18) H 12/23/20 03:48 Creatinine 1.40 mg/dL (0.55-1.3) H 12/23/20 03:48 Glucose 219 mg/dL (74-106) H 12/23/20 03:48 Magnesium 2.4 mg/dL (1.8-2.4) 12/23/20 03:48 Total Bilirubin 0.2 mg/dL (0.2-1.0) 12/23/20 03:48 AST 27 U/L (15-37) 12/23/20 03:48 ALT 45 U/L (12-78) 12/23/20 03:48 Alkaline Phosphatase 149 U/L (45-117) H 12/23/20 03:48 Lipase 202 U/L (73-393) 12/23/20 03:48 Home Medications: LORazepam [Ativan*] 0.5 mg PO TID PRN 05/23/14 Simvastatin [Zocor*] 20 mg PO BEDTIME 05/23/14 Cholecalciferol (Vitamin D3) [Vitamin D3] 2,000 units PO DAILY 12/03/20 Dapagliflozin Propanediol [Farxiga] 10 mg PO BEDTIME 12/03/20 Gabapentin [Neurontin*] 100 mg PO TID 12/03/20 Linagliptin [Tradjenta] 5 mg PO BEDTIME 12/03/20 Magnesium Oxide [Magnesium] 250 mg PO BID 12/03/20 Nifedipine [Procardia Xl] 30 mg PO DAILY 12/03/20 Sertraline [Zoloft*] 25 mg PO DAILY 12/03/20 lisinopriL [Prinivil*] 20 mg PO DAILY 12/03/20 Hydrocodone 7.5/APAP 325 [[place] 7.5/325 mg*] 1 tab PO Q8H PRN #20 tab 12/05/20 Pantoprazole [Protonix Tab] 40 mg PO DAILY #30 tab 12/23/20 New Medications: Pantoprazole [Protonix Tab] 40 mg PO DAILY #30 tab Physician Discharge Instructions: Patient presented with chest pain and epigastric pain. Patient was admitted for further evaluation and observation. Cardiac enzymes unremarkable. Symptoms resolved with GI cocktail. Patient recently treated for herpes zoster with antiviral and steroid treatment. Patient is seen by cardiology as an outpatient. CT scan shows no GI abnormality. Early cirrhosis, possible left lymph node near the left ovary noted on CT scan. Renal atrophy was also noted patient with history of chronic renal disease. Patient with mild dehydration. Patient given IV fluids with improvement. Symptoms have resolved. Case discussed with cardiology. No intervention required at this time. Symptoms likely related to underlying GERD. At discharge patient will continue with Protonix 40 mg daily. Recommend follow-up with GI as an outpatient to further evaluate. Patient will likely require EGD and colonoscopy to further address. Education on GERD will be provided. Recommend follow-up with PCP within 1 week to follow-up his hospitalization continue her care. Patient is seen by cardiology as an outpatient. Recommend follow-up with her cardiologistDr. Perrin within 1 week to follow-up his hospitalization. Patient is scheduled for outpatient cardiac stress test for further evaluate. Patient with acute on chronic renal disease stage III. CT showed renal atrophy. Patient has underlying chronic renal disease. Patient was given IV fluids with improvement. Future medications will need to be renally dosed. Recommend to establish care with nephrology as an outpatient to further monitor and address. Recommend to recheck labBMP in 1 week to monitor her progress. Patient with diabetes mellitus type 2. At discharge she may continue with her current medicationsTradjenta 5 mg daily and Farxiga 10 mg daily. Recommend to maintain blood sugar less than 140 fasting and less than 200 after meals. Recommend to recheck hemoglobin A1c every 3 months to monitor progress. Further adjustment in medication may be required due to her chronic renal disease. This can be done with the help of nephrology. Recommend follow-up with her PCP to further monitor and adjust medication. Patient with history of hypertension and hyperlipidemia. At discharge patient will continue with her current medications lisinopril 20 mg daily, Procardia XL 30 mg daily, and Zocor 20 mg daily. Recommend blood pressure to maintain less than 130/80. Further adjustment of medication may be required. This can be done with the help of her PCP. Recommend follow-up with PCP to further monitor and adjust medication. Patient with CT finding of early cirrhosis. Patient likely with underlying fatty liver. Recommend follow-up with GI to further evaluate. Patient with recent herpes zoster. Patient may continue with her medication for paingabapentin 100 mg 3 times a day as needed for pain. Patient also takes hydrocodone as needed for pain. Further adjustment in medication can be done by her PCP. Patient with depression with anxiety. At discharge she can continue with her medication including Zoloft 25 mg daily. Patient also takes Ativan 0.5 mg 3 times a day as needed for anxiety. Diet: ADA Activity: Ad coco Followup: NONE,NONE [Primary Care Provider] - Time spent managing pt's care (in minutes): 55
[2020-12-23] MEDS ORDERED: PANTOPRAZOLE 40 MG INJ ONE (08:55)
[2020-12-23] MEDS ORDERED: ASPIRIN EC 81 MG TAB PO ONE (08:55)
[2020-12-23] MEDS ORDERED: ENOXAPARIN 40 MG/0.4 ML SQ ONE (08:56)
--- NOTE | 2020-12-23 08:57 | RAD REPORT ---
EXAM DESCRIPTION: RAD - Chest Single View - 12/23/2020 3:35 am CLINICAL HISTORY: CHEST PAIN COMPARISON: December 03 TECHNIQUE: AP portable chest image was obtained 12/23/2020 3:35 am . FINDINGS: Lung volumes are low. No acute lung parenchymal process. Interstitial pattern matches comp arison. Heart and vasculature are normal. No measurable pleural effusion and no pneumothorax. No acute bony abnormality seen. No acute aortic findings suspected. IMPRESSION: No acute cardiopulmonary process. No significant change from comparison study.
[2020-12-23] MEDS ORDERED: ENOXAPARIN 40 MG/0.4 ML SQ SCH (09:00)
[2020-12-23] MEDS ORDERED: ASPIRIN EC 81 MG TAB PO SCH (09:00)
[2020-12-23] MEDS ORDERED: PANTOPRAZOLE 40 MG INJ IVP SCH (09:00)
[2020-12-23 10:10] VITALS: O2SAT 95
--- NOTE | 2020-12-23 12:25 | RAD REPORT ---
EXAM DESCRIPTION: CT - Abdomen Pelvis W Contrast - 12/23/2020 4:39 am COMPARISON: CT chest abdomen pelvis December 03, 2020 CLINICAL HISTORY: [facility] MAIN ABD PAIN TECHNIQUE: CT of the abdomen and pelvis was acquired with IV contrast material. Coronal and sagitt al reconstructions were obtained. Automated exposure control was utilized on this examination as a dose lowering technique. FINDINGS: Lung bases: Clear. Liver: Multinodular hepatic contour. Gallbladder and biliary: Cholecystectomy. Unremarkable biliary tree. Pancreas: Normal. Spleen: Normal. Adrenal glands: Normal adrenal glands. Kidneys: The right kidney measures 8.4 cm in the left kidney measures 7.6 cm. A small left renal cyst is noted. Stomach and Small Bowel: The stomach and small bowel are normal. Urinary bladder: Normal. Uterus and Adnexa: Hysterectomy. Colon and Appendix: The colon is unremarkable. No evidence of appendicitis. Retroperitoneum and lymph nodes: A left common iliac soft tissue density measures 1.7 cm short axis. Vascular: Moderate multivessel atherosclerosis. Peritoneal cavity: No ascites or free air. Musculoskeletal and soft tissues: Soft tissues are unremarkable. Lumbar spondylosis is present. No ag gressive bone lesions. No compression fracture. ABDOMEN/PELVIS IMPRESSION: 1. Early changes of cirrhosis. 2. Bilateral renal atrophy. 3. A left common iliac soft tissue density measuring 1.7 cm short axis likely represents the left ova ry and less likely a prominent lymph node. 4. Moderate atherosclerosis. 5. Findings are stable from December 03, 2020. Electronically signed by: Galen Nieves MD 12/23/2020 5:08 AM CDT Due to temporary technical issues with the PACS/Fluency reporting system, reports are being signed by the in house radiologist without review as a courtesy to ensure prompt reporting. The interpreting r adiologist is fully responsible for the content of the report.
[2020-12-23] MEDS ORDERED: ATORVASTATIN 40 MG TAB PO SCH (21:00)
== END 2020-12-23 09:59 | disposition home or self-care (01) ==
LOC: ER 02:58 → ERHOLD 05:10
PROVIDERS: ADMIT Family Medicine; ATTEND Family Medicine
DX: R07.9 Chest pain, unspecified (principal); R10.13 Epigastric pain; K21.9 Gastro-esophageal reflux disease without esophagitis; I12.9 Hypertensive chronic kidney disease with stage 1 through stage 4 chronic kidney disease, or unspecified chronic kidney disease; E11.22 Type 2 diabetes mellitus with diabetic chronic kidney disease; N18.30 Chronic kidney disease, stage 3 unspecified; N17.9 Acute kidney failure, unspecified; E78.5 Hyperlipidemia, unspecified; B02.9 Zoster without complications; K74.60 Unspecified cirrhosis of liver; E86.0 Dehydration; F41.8 Other specified anxiety disorders; E03.9 Hypothyroidism, unspecified; E66.9 Obesity, unspecified; Z68.26 Body mass index [BMI] 26.0-26.9, adult; Z88.6 Allergy status to analgesic agent; Z88.8 Allergy status to other drugs, medicaments and biological substances; Z86.73 Personal history of transient ischemic attack (TIA), and cerebral infarction without residual deficits; Z90.710 Acquired absence of both cervix and uterus; Z90.49 Acquired absence of other specified parts of digestive tract; Z20.822 Contact with and (suspected) exposure to COVID-19
CPT/HCPCS: 93005; 85025; 80048; 36415; 83735; 85610; 82565; 82947; 80076; 81003; 84484; 83690; 83880; 74177; 71045; 96375; 96374; 99285; U0003; Q9967; C9113; J1650; J2270; J7030; J2405 ×2; G0378 ×2

== ENCOUNTER 2020-12-25 20:23 | Emergency (ER) | payer OTHER ==
[2020-12-25 21:04] LABS: Absolute Lymphocytes (CBC) 1.5 K/uL (0.7-4.9); Basophils % 0.4 % (0-1.3); Hematocrit 39.3 % (36.0-45.0); Lymphocytes % 30.3 % (15.3-44.8); MPV 8.9 fL (7.6-11.3)
[2020-12-25] MEDS ORDERED: MORPHINE 2 MG/ML SYR ONE ×2 (21:14→21:41)
[2020-12-25] MEDS ORDERED: FAMOTIDINE 20 MG/2 ML VIAL IV ONE (21:14)
[2020-12-25] MEDS ORDERED: NA CHLORIDE 0.9% 500 ML ONE ×2 (21:14→23:54)
[2020-12-25] MEDS ORDERED: ONDANSETRON 4 MG/2 ML VIAL ONE (21:14)
--- NOTE | 2020-12-25 21:23 | RAD REPORT ---
EXAM DESCRIPTION: RAD - Chest Single View - 12/25/2020 9:10 pm CLINICAL HISTORY: ABDOMINAL DISTENTION COMPARISON: December 23 portable TECHNIQUE: AP portable chest image was obtained 12/25/2020 9:10 pm . FINDINGS: Lung volumes are low. No new or progressive lung parenchymal finding. Heart and vasculatur e are normal. No measurable pleural effusion and no pneumothorax. No acute bony abnormality seen. No acute aortic findings suspected. IMPRESSION: No acute cardiopulmonary process.
[2020-12-25 21:24] LABS: Albumin 3.7 g/dL (3.4-5.0); Bilirubin Direct 0.1 mg/dL (0-0.2); Bilirubin Total 0.3 mg/dL (0.2-1.0); Potassium 4.1 mmol/L (3.5-5.1); Protein, Total 7.3 g/dL (6.4-8.2)
[2020-12-25] MEDS ORDERED: MAGNES/ALUMIN/SIMET 30ML UCUP ONE (21:32)
[2020-12-25] MEDS ORDERED: LIDOCAINE VISCOUS 2% SOLN 15 ML UDC ONE (21:32)
[2020-12-25 23:11] LABS: Urine Blood Negative (Negative); Urine Glucose 2+ (Negative); Urine Protein Negative (Negative); Urine Specific Gravity 1.015 (1.005-1.030)
[2020-12-25] MEDS ORDERED: DICYCLOMINE HCL 20 MG/2 ML AMP IM ONE (23:54)
--- NOTE | 2020-12-26 00:38 | ER ---
Nurse's Notes [facility] Name: Sondra Azevedo Age: 75 yrs Sex: Female : 1945 Arrival Date: 12/25/2020 Time: 20:25 Bed 14 Private MD: Diagnosis: Upper abdominal pain, unspecified;Constipation, unspecified Presentation: 12/25 20:30 Chief complaint: Patient states: Severe abdominal pain that began suddenly about 1 hour lp1 ago; Family reports seen here in ED 3 days ago with unremarkable CT scan, recommended GI f/u; family reports scheduled GI appt for 12/27/20. 20:30 Coronavirus screen: At this time, the client does not indicate any symptoms associated lp1 with coronavirus-19. Ebola Screen: No symptoms or risks identified at this time. Risk Assessment: Do you want to hurt yourself or someone else? Patient reports no desire to harm self or others. Onset of symptoms was December 25, 2020 at 19:30. 20:30 Method Of Arrival: Wheelchair lp1 20:30 Acuity: SONALI 3 lp1 12/26 01:02 Initial Sepsis Screen: Does the patient meet any 2 criteria? No. Patient's initial bs2 sepsis screen is negative. Does the patient have a suspected source of infection? No. Patient's initial sepsis screen is negative. Historical: - Allergies: 12/25 20:53 Benzonatate; lp1 20:53 Ibuprofen; lp1 - Home Meds: 20:53 gabapentin 100 mg oral cap nightly [Active]; Tradjenta 5 mg oral tab 1 tab once daily lp1 [Active]; Farxiga 10 mg oral tab 1 tab once daily [Active]; lisinopril 20 mg oral tab once daily [Active]; Nifedipine ER Oral 30 mg nightly [Active]; simvastatin 20 mg oral tab once daily [Active]; lorazepam 0.5 mg oral tab [Active]; sertraline 25 mg oral tab once daily [Active]; - PMHx: 20:53 Anxiety; CVA; depressive disorder; DM; Hyperlipidemia; Hypertension; lp1 - PSHx: 20:53 ; hysterectomy; Cholecystectomy; Appendectomy; Cataract; lp1 - Immunization history:: Adult Immunizations up to date. - Social history:: Smoking status: Patient denies any tobacco usage or history of. Screenin:26 Abuse screen: Denies threats or abuse. Denies injuries from another. Nutritional bs2 screening: No deficits noted. Tuberculosis screening: No symptoms or risk factors identified. Fall Risk None identified. Assessment: 21:26 General: Appears uncomfortable, obese, well groomed, well developed, well nourished, bs2 Behavior is anxious. Pain: Complains of pain in diaphragm Pain currently is 8 out of 10 on a pain scale. GI: Parent/caregiver reports the patient having epigastric pain, indigestion, vomiting. 12/26 01:01 Reassessment: Patient is alert, oriented x 3, equal unlabored respirations, skin bs2 warm/dry/pink. Patient denies pain at this time. Patient states feeling better. Patient states symptoms have improved. Vital Signs: 12/25 20:30 BP 169 / 75; Pulse 58; Resp 26; Temp 98.6; Pulse Ox 100% ; Pain 10/10; bs2 21:30 BP 150 / 71; Pulse 56; Resp 24; Pulse Ox 100% ; Pain 9/10; bs2 22:30 BP 111 / 52; Pulse 56; Resp 18; Pulse Ox 100% ; bs2 23:30 BP 154 / 54; Pulse 57; Resp 18; Pulse Ox 99% ; bs2 ED Course: 20:25 Patient arrived in ED. cf2 20:30 Matt Cisse MD is Attending Physician. mh7 20:35 Inserted saline lock: 20 gauge in right antecubital area, using aseptic technique. lp1 Blood collected. 20:46 Marybel Louise, RN is Primary Nurse. lp1 20:53 Triage completed. lp1 20:53 Arm band placed on. lp1 20:59 Lipase Sent. lp1 20:59 Hepatic Function Sent. lp1 20:59 CBC with Diff Sent. lp1 20:59 Basic Metabolic Panel Sent. lp1 20:59 Basic Metabolic Panel Sent. lp1 21:10 Chest Single View XRAY In Process Unspecified. EDMS 21:26 Patient has correct armband on for positive identification. Placed in gown. Bed in low bs2 position. Call light in reach. Side rails up X2. workers' compensation commissioner on. Pulse ox on. NIBP on. Door closed. Noise minimized. Lights dimmed. Warm blanket given. 22:06 CT Abd/Pelvis - IV Contrast Only In Process Unspecified. EDMS 12/26 00:35 Haile Barreto MD is Referral Physician. 7 01:01 No provider procedures requiring assistance completed. IV discontinued, intact, bs2 bleeding controlled, No redness/swelling at site. Administered Medications: 12/25 20:45 CANCELLED (wrong orderr): NS 0.9% 1000 ml IV at 125 ml/hr continuous mh7 20:46 CANCELLED (wrong orderr): NS 0.9% 1000 ml IV at 1000 ml once mh7 20:58 Drug: Zofran (Ondansetron) 4 mg Route: IVP; Site: right antecubital; lp1 21:26 Follow up: Response: No adverse reaction bs2 20:58 Drug: morphine 2 mg Route: IVP; Site: right antecubital; lp1 20:59 Drug: NS 0.9% 500 ml Route: IV; Rate: bolus; Site: right antecubital; lp1 21:25 Follow up: IV Status: Completed infusion bs2 20:59 Drug: Pepcid (famotidine) 20 mg Route: IVP; Site: right antecubital; lp1 21:25 Follow up: Response: No adverse reaction bs2 21:25 Drug: morphine 2 mg Route: IVP; Site: right antecubital; bs2 21:26 Follow up: Response: Pain is unchanged, physician notified bs2 21:25 Drug: GI Cocktail without - (Maalox Suspension 30 ml, Lidocaine Liquid 2 % 15 bs2 ml) Route: PO; 21:26 Follow up: Response: No adverse reaction bs2 23:38 Drug: Bentyl (dicyclomine) 10 mg Route: IM; Site: right deltoid; bs2 23:52 Follow up: Response: No adverse reaction bs2 23:38 Drug: NS 0.9% 500 ml Route: IV; Rate: bolus; Site: right antecubital; bs2 12/26 01:02 Follow up: IV Status: Completed infusion bs2 Outcome: 00:37 Discharge ordered by . 7 01:01 Discharged to home ambulatory, with family. bs2 01:01 Condition: improved 01:01 Discharge instructions given to patient, family, Instructed on discharge instructions, follow up and referral plans. medication usage, Demonstrated understanding of instructions, follow-up care, medications, wound care, Prescriptions given X 4. 01:02 Patient left the ED. bs2 Signatures: Dispatcher [employer] EDMarybel Limon RN RN lp1 Luz Marina Cintron 2 Matt Cisse MD MD 7 Anali Lim RN RN bs2
--- NOTE | 2020-12-26 00:38 | EDPHYS ---
Physician Documentation [facility] Name: Sondra Azevedo Age: 75 yrs Sex: Female : 1945 Arrival Date: 12/25/2020 Time: 20:25 Bed 14 Private MD: ED Physician Matt Cisse HPI: 12/25 20:30 This 75 yrs old Female presents to ER via Wheelchair with complaints of SEVER mh7 ABDOMINAL PAIN. 20:30 The patient presents with abdominal pain in the epigastric area. Onset: The mh7 symptoms/episode began/occurred today. The symptoms do not radiate. Associated signs and symptoms: Pertinent negatives: nausea, vomiting, and diarrhea, nausea and vomiting, anorexia, blood in stools, chest pain, constipation, diarrhea, dysuria, fever, headache, hematuria, nausea, palpitations, shortness of breath, vaginal discharge, vomiting, vomiting blood. The symptoms are described as intermittent, vague, waxing/waning. Modifying factors: The symptoms are alleviated by nothing, the symptoms are aggravated by food. Severity of pain: At its worst the pain was severe today, in the emergency department the pain is unchanged. The patient has experienced similar episodes in the past, a few times. The patient has been recently seen at the [facility] Emergency Department, this week. Historical: - Allergies: 20:53 Benzonatate; lp1 20:53 Ibuprofen; lp1 - Home Meds: 20:53 gabapentin 100 mg oral cap nightly [Active]; Tradjenta 5 mg oral tab 1 tab once daily lp1 [Active]; Farxiga 10 mg oral tab 1 tab once daily [Active]; lisinopril 20 mg oral tab once daily [Active]; Nifedipine ER Oral 30 mg nightly [Active]; simvastatin 20 mg oral tab once daily [Active]; lorazepam 0.5 mg oral tab [Active]; sertraline 25 mg oral tab once daily [Active]; - PMHx: 20:53 Anxiety; CVA; depressive disorder; DM; Hyperlipidemia; Hypertension; lp1 - PSHx: 20:53 ; hysterectomy; Cholecystectomy; Appendectomy; Cataract; lp1 - Immunization history:: Adult Immunizations up to date. - Social history:: Smoking status: Patient denies any tobacco usage or history of. ROS: 20:30 Constitutional: Negative for fever, chills, and weight loss, Eyes: Negative for injury, mh7 pain, redness, and discharge, ENT: Negative for injury, pain, and discharge, Neck: Negative for injury, pain, and swelling, Cardiovascular: Negative for chest pain, palpitations, and edema, Respiratory: Negative for shortness of breath, cough, wheezing, and pleuritic chest pain, Back: Negative for injury and pain, : Negative for injury, bleeding, discharge, and swelling, MS/Extremity: Negative for injury and deformity, Skin: Negative for injury, rash, and discoloration, Neuro: Negative for headache, weakness, numbness, tingling, and seizure, Psych: Negative for depression, anxiety, suicide ideation, homicidal ideation, and hallucinations, Allergy/Immunology: Negative for hives, rash, and allergies, Endocrine: Negative for neck swelling, polydipsia, polyuria, polyphagia, and marked weight changes, Hematologic/Lymphatic: Negative for swollen nodes, abnormal bleeding, and unusual bruising. Exam: 20:30 Head/Face: Normocephalic, atraumatic. Eyes: Pupils equal round and reactive to light, mh7 extra-ocular motions intact. Lids and lashes normal. Conjunctiva and sclera are non-icteric and not injected. Cornea within normal limits. Periorbital areas with no swelling, redness, or edema. Neck: Trachea midline, no thyromegaly or masses palpated, and no cervical lymphadenopathy. Supple, full range of motion without nuchal rigidity, or vertebral point tenderness. No Meningismus. Chest/axilla: Normal chest wall appearance and motion. Nontender with no deformity. No lesions are appreciated. Cardiovascular: Regular rate and rhythm with a normal S1 and S2. No gallops, murmurs, or rubs. Normal PMI, no JVD. No pulse deficits. Respiratory: Lungs have equal breath sounds bilaterally, clear to auscultation and percussion. No rales, rhonchi or wheezes noted. No increased work of breathing, no retractions or nasal flaring. 20:30 Back: No spinal tenderness. No costovertebral tenderness. Full range of motion. Skin: Warm, dry with normal turgor. Normal color with no rashes, no lesions, and no evidence of cellulitis. MS/ Extremity: Pulses equal, no cyanosis. Neurovascular intact. Full, normal range of motion. Neuro: Awake and alert, GCS 15, oriented to person, place, time, and situation. Cranial nerves II-XII grossly intact. Motor strength 5/5 in all extremities. Sensory grossly intact. Cerebellar exam normal. Normal gait. Psych: Awake, alert, with orientation to person, place and time. Behavior, mood, and affect are within normal limits. 20:30 Constitutional: The patient appears in no acute distress, alert, awake, uncomfortable. 20:30 Abdomen/GI: Inspection: obese scar(s), are noted in the right upper quadrant, Bowel sounds: normal, in all quadrants, Palpation: moderate abdominal tenderness, in the epigastric area, mass, is not appreciated, rebound tenderness, is not appreciated, voluntary guarding, is not appreciated, involuntary guarding, is not appreciated, no appreciated organomegaly, Rectal exam: the exam is deferred, because of patient request, Indicators: McBurney's point is not tender, Durbin's sign is negative, Rovsing's sign is negative, Obturator sign is negative, Psoas sign is negative, Liver: no appreciated palpable abnormalities, Hernia: not appreciated. Vital Signs: 20:30 BP 169 / 75; Pulse 58; Resp 26; Temp 98.6; Pulse Ox 100% ; Pain 10/10; bs2 21:30 BP 150 / 71; Pulse 56; Resp 24; Pulse Ox 100% ; Pain 9/10; bs2 22:30 BP 111 / 52; Pulse 56; Resp 18; Pulse Ox 100% ; bs2 23:30 BP 154 / 54; Pulse 57; Resp 18; Pulse Ox 99% ; bs2 MDM: 12/26 00:34 Differential diagnosis: bowel obstruction, diverticulitis, gastritis, gastroesophageal mh7 reflux disease, non-specific abd pain, pancreatitis, Peptic Ulcer Disease, Perf. Duodenal Ulcer, Perf. Gastric Ulcer, urinary tract infection. Data reviewed: vital signs, nurses notes, old medical records, lab test result(s), cardiac enzymes, CBC, electrolytes, urinalysis, EKG, radiologic studies, CT scan. Data interpreted: Pulse oximetry: on room air is 99 %. Interpretation: normal. Counseling: I had a detailed discussion with the patient and/or guardian regarding: the historical points, exam findings, and any diagnostic results supporting the discharge/admit diagnosis, the presence of at least one elevated blood pressure reading (>120/80) during this emergency department visit, lab results, radiology results, the need for outpatient follow up, a electric [employer]. Response to treatment: the patient's symptoms have resolved after treatment, the patient's blood pressure is in an acceptable range, mental status has returned to baseline, the patient no longer shows bradycardia, the patient is not short of breath, the patient is not tachycardic, the patient's pain is gone, the patient's temperature has normalized, patient is well hydrated. 00:37 [facility] 12/25 20:45 Order name: Basic Metabolic Panel [facility] 12/25 20:45 Order name: CBC with Diff; Complete Time: 21:27 [facility] 12/25 20:45 Order name: Hepatic Function; Complete Time: 21:27 [facility] 12/25 20:45 Order name: Lipase; Complete Time: 21:27 [facility] 12/25 20:45 Order name: Basic Metabolic Panel; Complete Time: 21:27 [facility] 12/25 21:53 Order name: Troponin (emerg Dept Use Only); Complete Time: 23:45 [facility] 12/25 20:50 Order name: Chest Single View XRAY; Complete Time: 21:27 [facility] 12/25 21:30 Order name: CT Abd/Pelvis - IV Contrast Only [facility] 12/25 23:11 Order name: Urine Dipstick-Ancillary; Complete Time: 23:24 [facility] 12/25 20:45 Order name: IV Saline Lock; Complete Time: 20:59 [facility] 12/25 20:45 Order name: Labs collected and sent; Complete Time: 20:59 [facility] 12/25 20:45 Order name: Urine Dipstick-Ancillary (obtain specimen); Complete Time: 23:53 [facility] 12/25 20:45 Order name: EKG; Complete Time: 20:46 [facility] 12/25 20:45 Order name: EKG - Nurse/Tech; Complete Time: 22:28 [facility] Administered Medications: 12/25 20:45 CANCELLED (wrong orderr): NS 0.9% 1000 ml IV at 125 ml/hr continuous [facility] 20:46 CANCELLED (wrong orderr): NS 0.9% 1000 ml IV at 1000 ml once [facility] 20:58 Drug: Zofran (Ondansetron) 4 mg Route: IVP; Site: right antecubital; lp1 21:26 Follow up: Response: No adverse reaction bs2 20:58 Drug: morphine 2 mg Route: IVP; Site: right antecubital; lp1 20:59 Drug: NS 0.9% 500 ml Route: IV; Rate: bolus; Site: right antecubital; lp1 21:25 Follow up: IV Status: Completed infusion bs2 20:59 Drug: Pepcid (famotidine) 20 mg Route: IVP; Site: right antecubital; lp1 21:25 Follow up: Response: No adverse reaction bs2 21:25 Drug: morphine 2 mg Route: IVP; Site: right antecubital; bs2 21:26 Follow up: Response: Pain is unchanged, physician notified bs2 21:25 Drug: GI Cocktail without - (Maalox Suspension 30 ml, Lidocaine Liquid 2 % 15 bs2 ml) Route: PO; 21:26 Follow up: Response: No adverse reaction bs2 23:38 Drug: Bentyl (dicyclomine) 10 mg Route: IM; Site: right deltoid; bs2 23:52 Follow up: Response: No adverse reaction bs2 23:38 Drug: NS 0.9% 500 ml Route: IV; Rate: bolus; Site: right antecubital; bs2 12/26 01:02 Follow up: IV Status: Completed infusion bs2 Disposition Summary: 12/26/20 00:37 Discharge Ordered Location: Home 7 Problem: an ongoing problem 7 Symptoms: have improved mh7 Condition: Stable 7 Diagnosis - Upper abdominal pain, unspecified 7 - Constipation, unspecified 7 Followup: 7 - With: Private Physician - When: 1 - 2 days - Reason: Worsening of condition, Recheck today's complaints, Continuance of care, Re-evaluation by your physician Followup: 7 - With: Haile Barreto MD - When: 1 - 2 days - Reason: Worsening of condition, Further diagnostic work-up, Recheck today's complaints Discharge Instructions: - Discharge Summary Sheet [facility] - Constipation, Adult, [id number] 7 - Abdominal Pain, Adult, [id number] [facility] Forms: - Medication Reconciliation Form [facility] - Thank You Letter 7 - Antibiotic Education mh7 - Prescription Opioid Use [facility] Prescriptions: - Dulcolax (bisacodyl) 10 mg Rectal suppository - insert 1 suppository by RECTAL route once daily as needed for constipation; 5 7 suppository; Refills: 0, Product Selection Permitted - dicyclomine 10 mg Oral capsule - take 1 capsule by ORAL route 4 times per day As needed; 20 capsule; Refills: 0, [facility] Product Selection Permitted - Colace 100 mg Oral Tablet - take 1 tablet by ORAL route every 12 hours; 14 tablet; Refills: 0, Product [facility] Selection Permitted - Lactulose 10 gram/15 mL Oral Solution - take 30 milliliters by ORAL route once daily; 150 milliliter; Refills: 0, [facility] Product Selection Permitted Signatures: Dispatcher [employer] EDOK Marybel Louise RN RN lp1 Matt Cisse MD MD 7 Anali Lim RN RN bs2 Corrections: (The following items were deleted from the chart) 12/25 20:45 20:45 NS 0.9% 1000 ml IV at 125 ml/hr continuous [place]. [place] [id number] 20:46 20:45 NS 0.9% 1000 ml IV at 1000 ml once ordered. [place] [id number]
[2020-12-26 01:29] VITALS: TEMP 98.6
[2020-12-26 01:32] VITALS: BP 154/54; O2SAT 99
--- NOTE | 2020-12-27 10:54 | RAD REPORT ---
EXAM DESCRIPTION: CT - Abdomen Pelvis W Contrast - 12/26/2020 7:17 am COMPARISON: CT renal stone January 21, 2020 CLINICAL HISTORY: [facility] MAIN ABD PAIN TECHNIQUE: CT of the abdomen and pelvis was acquired with IV contrast material. Coronal and sagitt al reconstructions were obtained. Automated exposure control was utilized on this examination as a dose lowering technique. FINDINGS: Lung bases: Clear. Liver: Enlarged liver measuring 19.3 cm midclavicular line. Gallbladder and biliary: Decompressed gallbladder. Unremarkable biliary tree. Pancreas: Normal. Spleen: Normal. Adrenal glands: Normal adrenal glands. Kidneys: Normal kidneys Stomach and Small Bowel: The stomach and small bowel are normal. Urinary bladder: Normal. Uterus and Adnexa: Normal. Colon and Appendix: The colon is unremarkable. No evidence of appendicitis. Retroperitoneum and lymph nodes: Normal. Vascular: Unremarkable. Peritoneal cavity: No ascites or free air. Musculoskeletal and soft tissues: Soft tissues are unremarkable. Lumbar spondylosis is present. No ag gressive bone lesions. No compression fracture. ABDOMEN/PELVIS IMPRESSION 1. No acute intra-abdominal findings. 2. Hepatomegaly. Electronically signed by: Galen Nieves MD 12/26/2020 1:51 AM CDT Due to temporary technical issues with the PACS/Fluency reporting system, reports are being signed by the in house radiologists without review as a courtesy to insure prompt reporting. The interpreting radiologist is fully responsible for the content of the report.
== END 2020-12-26 01:02 | disposition home or self-care (01) ==
LOC: ER 20:23
DX: K59.00 Constipation, unspecified (principal); I10 Essential (primary) hypertension; E11.9 Type 2 diabetes mellitus without complications; Z88.6 Allergy status to analgesic agent; Z91.048 Other nonmedicinal substance allergy status
CPT/HCPCS: 96361; 93005; 85025; 80048; 36415; 80076; 81003; 84484; 83690; 74177; 71045; 96375; 96372; 96374; 99284; Q9967; J0500; J2270 ×2; J7040 ×2; J2405

== ENCOUNTER 2023-03-16 04:30 | Observation (INO) | payer OTHER ==
--- NOTE | 2023-03-16 05:31 | ER ---
Nurse's Notes [facility] Name: Sondra Azevedo Age: 77 yrs Sex: Female : 1945 Arrival Date: 03/16/2023 Time: 04:30 Bed 4 Private MD: Diagnosis: Chest pain on breathing;Dyspnea;Acute upper respiratory infection, unspecified;Weakness Presentation: 03/16 04:31 Chief complaint: Patient states: cough,congestion, runny nose with left ear pain,onset pf1 6 days with headache for 3 day and having chest tightness when coughing,onset this AM. 04:31 Method Of Arrival: Wheelchair pf1 04:31 Coronavirus screen: Vaccine status: Patient reports receiving the 1st dose of the Covid pf1 vaccine. Client denies travel out of the [place] in the last 14 days. Client presents with at least one sign or symptom that may indicate coronavirus-19. Ebola Screen: Patient negative for fever greater than or equal to 101.5 degrees Fahrenheit, and additional compatible Ebola Virus Disease symptoms. Initial Sepsis Screen: Does the patient meet any 2 criteria? HR > 90 bpm. No. Patient's initial sepsis screen is negative. Does the patient have a suspected source of infection? No. Patient's initial sepsis screen is negative. Risk Assessment: Do you want to hurt yourself or someone else? Patient reports no desire to harm self or others. 04:31 Acuity: SONALI 2 pf1 06:03 Onset of symptoms was March 10, 2023. vc1 Triage Assessment: 06:00 General: Appears uncomfortable, ill, Behavior is cooperative, appropriate for age. vc1 Pain: Complains of pain in chest Pain does not radiate. Pain currently is 10 out of 10 on a pain scale. Quality of pain is described as pressure, sharp, Aggravated by coughing Noted to be grimacing, guarding, resistant to movement. EENT: No deficits noted. No signs and/or symptoms were reported regarding the EENT system. Neuro: Level of Consciousness is awake, alert, obeys commands, Oriented to person, place, time, situation, Appropriate for age. Cardiovascular: No deficits noted. Respiratory: Reports shortness of breath cough that is labored breathing Onset: The symptoms/episode began/occurred 6 days, the patient has mild shortness of breath. Respiratory: Airway is patent Respiratory effort is even, unlabored, Respiratory pattern is regular, symmetrical. GI: No deficits noted. No signs and/or symptoms were reported involving the gastrointestinal system. : No deficits noted. No signs and/or symptoms were reported regarding the genitourinary system. Derm: No deficits noted. No signs and/or symptoms reported regarding the dermatologic system. Musculoskeletal: No deficits noted. No signs and/or symptoms reported regarding the musculoskeletal system. Historical: - Allergies: 04:57 Benzonatate; pf1 04:57 Ibuprofen; pf1 - PMHx: 04:57 Anxiety; CVA; depressive disorder; DM; Hyperlipidemia; Hypertension; pf1 04:58 shingles; pf1 - PSHx: 04:57 Appendectomy; cataract; Cholecystectomy; ; hysterectomy; pf1 - Immunization history:: Adult Immunizations up to date, Client reports receiving the 1st dose of the Covid vaccine, Last tetanus immunization: < 5 years ago Flu vaccine is up to date. - Social history:: Smoking status: Patient denies any tobacco usage or history of. Patient/guardian denies using alcohol, street drugs. - Family history:: not pertinent. Screenin:40 [facility] ED Fall Risk Assessment (Adult) History of falling in the last 3 months, vc1 including since admission No falls in past 3 months (0 pts) Confusion or Disorientation No (0 pts) Intoxicated or Sedated No (0 pts) Impaired Gait No (0 pts) Mobility Assist Device Used No (0 pt) Altered Elimination No (0 pt) Score/Fall Risk Level 0 - 2 = Low Risk Oriented to surroundings, Maintained a safe environment, Educated pt \T\ family on fall prevention, incl call for assistance when getting out of bed. Abuse screen: Denies threats or abuse. Nutritional screening: No deficits noted. Tuberculosis screening: No symptoms or risk factors identified. Assessment: 06:03 Cardiovascular: Rhythm is sinus tachycardia. Respiratory: Reports shortness of breath vc1 cough that is labored breathing pain with cough pain with respiration Airway is patent Respiratory effort is even, unlabored, Respiratory pattern is regular, symmetrical. 07:09 Reassessment: Patient appears in no apparent distress at this time. family at bedside, iw pt resting comfortably. Vital Signs: 04:31 BP 113 / 67; Pulse 105; Resp 20; Temp 98; Pulse Ox 100% on R/A; Weight 78.93 kg; Height pf1 4 ft. 10 in. ; Pain 10/10; 07:10 BP 106 / 55; Pulse 101; Resp 16; Pulse Ox 94% ; iw 04:31 Body Mass Index 36.37 (78.93 kg, 147.32 cm) pf1 04:31 Pain Scale: Adult pf1 ED Course: 04:30 Patient arrived in ED. jj6 04:31 Michael Hector MD is Attending Physician. tushar 04:56 XRAY Chest (1 view) In Process Unspecified. EDMS 04:57 Triage completed. pf1 05:05 SARS RAPID Sent. wm 05:05 Flu Sent. wm 05:20 Inserted saline lock: 20 gauge in right antecubital area, using aseptic technique. km8 Blood collected. 05:29 Luis Sanches MD is Hospitalizing Provider. tushar 05:41 Inserted saline lock: 22 gauge in left forearm, using aseptic technique. Blood km8 collected. 05:45 Lactate w/ 2H reflex if indic. Sent. km8 05:45 Blood Culture Adult (2) Sent. km8 05:45 Basic Metabolic Panel Sent. km8 05:45 CBC with Diff Sent. km8 05:45 LFT's Sent. km8 05:45 Magnesium Sent. km8 05:45 NT PRO-BNP Sent. km8 05:45 PT-INR Sent. km8 05:45 Troponin HS Sent. km8 05:59 Patient has correct armband on for positive identification. Placed in gown. Bed in low vc1 position. Call light in reach. Client placed on continuous cardiac and pulse oximetry monitoring. NIBP monitoring applied. 06:00 Arm band placed on right wrist. vc1 06:46 Chest For PE Angio CT In Process Unspecified. EDMS 07:04 Bella Sotomayor, RN is Primary Nurse. iw 09:12 RSV Sent. bc6 09:53 No provider procedures requiring assistance completed. Patient admitted, IV remains in iw place. Administered Medications: 05:53 Drug: morphine IVP or IV 2 mg IVP once over 4 mins Route: IVP; Infused Over: 4 mins; vc1 Site: right antecubital; 06:51 Follow up: Response: No adverse reaction km8 05:54 Drug: Aspirin PO Chewable Tablet 162 mg PO once Route: PO; vc1 06:50 Follow up: Response: No adverse reaction km8 05:54 Drug: Rocephin IV 1 grams IV at per protocol once; Given slow IV push per pharmacy vc1 instructions Route: IV; Rate: per protocol; Site: right antecubital; 06:50 Follow up: Response: No adverse reaction; IV Status: Completed infusion km8 05:54 Drug: Zithromax IVPB 500 mg IVPB once over 1 hrs; mix in 250 mL NS Route: IVPB; Infused vc1 Over: 1 hrs; Site: right antecubital; 08:00 Follow up: IV Status: Completed infusion iw 05:54 Drug: Ondansetron IVP 4 mg IVP once; over 2 minutes Route: IVP; Site: right antecubital;vc1 06:50 Follow up: Response: No adverse reaction km8 05:54 Drug: Levalbuterol Inhalation 1.25 mg Inhalation once Route: Inhalation; vc1 06:51 Follow up: Response: No adverse reaction km8 05:54 Drug: Ipratropium Inhalation Aerosol 0.5 mg Inhalation once Route: Inhalation; vc1 06:51 Follow up: Response: No adverse reaction km8 05:55 Drug: NS 0.9% IV 1000 ml IV at 1 bolus Per protocol; 1000 mL bolus Route: IV; Rate: 1 vc1 bolus; Site: right antecubital; 07:08 Follow up: IV Status: Completed infusion; IV Intake: 1000ml km8 07:12 Drug: Enoxaparin Sub-Q 1 mg/kg Sub-Q once Route: Sub-Q; Site: left lower abdomen; km8 08:00 Follow up: Response: No adverse reaction iw 08:52 Drug: NS 0.9% IV 1000 ml IV at 75 ml/hr continuous Route: IV; Rate: 75 ml/hr; Site: jj7 right antecubital; 09:55 Follow up: IV Status: Infusion continued upon admission iw 12:10 Not Given (Patient Refused): morphineor iv 2 mg IVP once over 4 mins iw Medication: 05:59 VIS not applicable for this client. vc1 Intake: 07:08 IV: 1000ml; Total: 1000ml. km8 Outcome: 05:30 Decision to Hospitalize by Provider. tushar 09:54 Admitted to Tele accompanied by tech, family with patient, via stretcher, iw 09:54 Condition: good 09:54 Discharge instructions given to patient, family, Instructed on the need for admit, Demonstrated understanding of instructions, 09:55 Patient left the ED. bc6 Signatures: Dispatcher [employer] EDMichael Lindsey MD MD cha Williams, Irene, RN RN Deepali Chaves Jennifer jj6 Adrianna Walker RN RN vc1 Wilian Lyon RN RN jj7 Mary Ann Noel RN RN pf1 Saida Redd 6 Lory Ivory RN RN km8 Corrections: (The following items were deleted from the chart) 04:59 04:57 PMHx: shingles (Hypertension); pf1 pf1
--- NOTE | 2023-03-16 05:31 | EDPHYS ---
Physician Documentation [facility] Name: Sondra Azevedo Age: 77 yrs Sex: Female : 1945 Arrival Date: 03/16/2023 Time: 04:30 Bed 4 Private MD: ANDRES Physician Michael Hector HPI: 03/16 04:46 This 77 yrs old Female presents to ER via Unassigned with complaints of tushar Shortness Of Breath, Chest Tightness. 04:46 The patient has shortness of breath at rest. Onset: The symptoms/episode began/occurred tushar 3 day(s) ago. Duration: The symptoms are continuous, and are steadily getting worse. The patient's shortness of breath is aggravated by coughing, light activity, is alleviated by rest, sitting up, application of supplemental oxygen. Associated signs and symptoms: Pertinent positives: chest pain, non-productive cough, dizziness. Severity of symptoms: At their worst the symptoms were moderate in the emergency department the symptoms are unchanged. The patient has experienced similar episodes in the past, a few times. Historical: - Allergies: 04:57 Benzonatate; pf1 04:57 Ibuprofen; pf1 - PMHx: 04:57 Anxiety; CVA; depressive disorder; DM; Hyperlipidemia; Hypertension; pf1 04:58 shingles; pf1 - PSHx: 04:57 Appendectomy; cataract; Cholecystectomy; ; hysterectomy; pf1 - Immunization history:: Adult Immunizations up to date, Client reports receiving the 1st dose of the Covid vaccine, Last tetanus immunization: < 5 years ago Flu vaccine is up to date. - Social history:: Smoking status: Patient denies any tobacco usage or history of. Patient/guardian denies using alcohol, street drugs. - Family history:: not pertinent. ROS: 04:47 Constitutional: Negative for fever, chills, and weight loss, Eyes: Negative for injury, tushar pain, redness, and discharge, ENT: Negative for injury, pain, and discharge, Neck: Negative for injury, pain, and swelling, Abdomen/GI: Negative for abdominal pain, nausea, vomiting, diarrhea, and constipation, Back: Negative for injury and pain, : Negative for injury, bleeding, discharge, and swelling, MS/Extremity: Negative for injury and deformity, Skin: Negative for injury, rash, and discoloration, Neuro: Negative for headache, weakness, numbness, tingling, and seizure, 04:47 Cardiovascular: Positive for chest pain, with cough, orthopnea, 04:47 Respiratory: Positive for cough, shortness of breath, 04:47 MS/extremity: Positive for pain, of the back, chest, right arm, left arm, right leg and left leg, Exam: 04:47 Constitutional: This is a well developed, well nourished patient who is awake, alert, tushar and in no acute distress. Head/Face: Normocephalic, atraumatic. Eyes: Pupils equal round and reactive to light, extra-ocular motions intact. Lids and lashes normal. Conjunctiva and sclera are non-icteric and not injected. Cornea within normal limits. Periorbital areas with no swelling, redness, or edema. ENT: Nares patent. No nasal discharge, no septal abnormalities noted. Tympanic membranes are normal and external auditory canals are clear. Oropharynx with no redness, swelling, or masses, exudates, or evidence of obstruction, uvula midline. Mucous membranes moist. Neck: Trachea midline, no thyromegaly or masses palpated, and no cervical lymphadenopathy. Supple, full range of motion without nuchal rigidity, or vertebral point tenderness. No Meningismus. Chest/axilla: Normal chest wall appearance and motion. Nontender with no deformity. No lesions are appreciated. Respiratory: Lungs have equal breath sounds bilaterally, clear to auscultation and percussion. No rales, rhonchi or wheezes noted. No increased work of breathing, no retractions or nasal flaring. Abdomen/GI: Soft, non-tender, with normal bowel sounds. No distension or tympany. No guarding or rebound. No evidence of tenderness throughout. Back: No spinal tenderness. No costovertebral tenderness. Full range of motion. Female : Normal external genitalia. Skin: Warm, dry with normal turgor. Normal color with no rashes, no lesions, and no evidence of cellulitis. MS/ Extremity: Pulses equal, no cyanosis. Neurovascular intact. Full, normal range of motion. Neuro: Awake and alert, GCS 15, oriented to person, place, time, and situation. Cranial nerves II-XII grossly intact. Motor strength 5/5 in all extremities. Sensory grossly intact. Cerebellar exam normal. Normal gait. Psych: Awake, alert, with orientation to person, place and time. Behavior, mood, and affect are within normal limits. 04:47 Cardiovascular: Rate: bradycardic, Rhythm: irregularly irregular, Pulses: no pulse deficits are appreciated, Heart sounds: normal, normal S1and S2, no S3 or S4, no murmur, no rub, no gallop, 04:47 ECG was reviewed by the Attending Physician. Vital Signs: 04:31 BP 113 / 67; Pulse 105; Resp 20; Temp 98; Pulse Ox 100% on R/A; Weight 78.93 kg; Height pf1 4 ft. 10 in. ; Pain 10/10; 07:10 BP 106 / 55; Pulse 101; Resp 16; Pulse Ox 94% ; iw 04:31 Body Mass Index 36.37 (78.93 kg, 147.32 cm) pf1 04:31 Pain Scale: Adult pf1 MDM: 04:[address] [facility] 04:49 Antibiotic administration: Rocephin and Zithromax given. HEART Score: History:. The [facility] patient was not given aspirin in the Emergency Department. Immunization status: Pneumococcal vaccine: within last 5 years. Influenza vaccine: within last 5 years. Data reviewed: vital signs, nurses notes, lab test result(s), EKG, radiologic studies, CT scan, plain films. Consideration of Admission/Observation Patient was admitted/placed on observation. Escalation of care including admission/observation considered. I considered the following discharge prescriptions or medication management in the emergency department Medications were administered in the Emergency Department. See MAR. Historians other than the Patient: Daughter/Son: DAUGHTER WELL INFORMED. Care significantly affected by the following chronic conditions: Diabetes, Hypertension. Counseling: I had a detailed discussion with the patient and/or guardian regarding the historical points, exam findings, and any diagnostic results supporting the discharge/admit diagnosis, the presence of at least one elevated blood pressure reading (>120/80) during this emergency department visit, lab results, radiology results, the need for further work-up and treatment in the hospital. 03/16 04:33 Order name: Basic Metabolic Panel; Complete Time: 06:26 [facility] 03/16 04:33 Order name: CBC with Diff; Complete Time: 06:26 [facility] 03/16 04:33 Order name: LFT's; Complete Time: 06:26 tushar 03/16 04:33 Order name: Magnesium; Complete Time: 06:26 [facility] 03/16 04:33 Order name: NT PRO-BNP; Complete Time: 06:26 [facility] 03/16 04:33 Order name: PT-INR; Complete Time: 06:35 [facility] 03/16 04:33 Order name: Troponin HS; Complete Time: 06:26 [facility] 03/16 04:33 Order name: Blood Culture Adult (2) [facility] 03/16 04:33 Order name: Flu; Complete Time: 05:42 [facility] 03/16 04:33 Order name: SARS RAPID; Complete Time: 05:42 [facility] 03/16 04:34 Order name: Lactate w/ 2H reflex if indic.; Complete Time: 06:26 [facility] 03/16 08:39 Order name: RSV; Complete Time: 09:53 la 03/16 09:47 Order name: Lactate Sepsis 2 HR Follow-up; Complete Time: 09:53 [facility] 03/16 04:33 Order name: XRAY Chest ([address] view) [facility] 03/16 05:14 Order name: Chest For PE Angio CT [facility] 03/16 04:33 Order name: EKG; Complete Time: 04:34 [facility] 03/16 08:46 Order name: Physical Therapy Consult [facility] 03/16 04:33 Order name: Cardiac monitoring; Complete Time: 04:51 [facility] 03/16 04:33 Order name: EKG - Nurse/Tech; Complete Time: 04:51 [facility] 03/16 04:33 Order name: IV Saline Lock; Complete Time: 05:45 [facility] 03/16 04:33 Order name: Labs collected and sent; Complete Time: 05:45 [facility] 03/16 04:33 Order name: O2 Per Protocol; Complete Time: 05:23 [facility] 03/16 04:33 Order name: O2 Sat Monitoring; Complete Time: 04:51 [facility] EC:47 Rate is 107 beats/min. Rhythm is regular. QRS [place] is Normal. [place] interval is normal. [facility] QRS interval is normal. QT interval is normal. No Q waves. T waves are Normal. No ST changes noted. Clinical impression: Sinus tachycardia and No evidence of ischemia. Interpreted by me. Reviewed by me. Administered Medications: 05:53 Drug: morphine IVP or IV 2 mg IVP once over 4 mins Route: IVP; Infused Over: 4 mins; vc1 Site: right antecubital; 06:51 Follow up: Response: No adverse reaction 8 05:54 Drug: Aspirin PO Chewable Tablet 162 mg PO once Route: PO; vc1 06:50 Follow up: Response: No adverse reaction 8 05:54 Drug: Rocephin IV 1 grams IV at per protocol once; Given slow IV push per pharmacy vc1 instructions Route: IV; Rate: per protocol; Site: right antecubital; 06:50 Follow up: Response: No adverse reaction; IV Status: Completed infusion 8 05:54 Drug: Zithromax IVPB 500 mg IVPB once over 1 hrs; mix in 250 mL NS Route: IVPB; Infused vc1 Over: 1 hrs; Site: right antecubital; 08:00 Follow up: IV Status: Completed infusion iw 05:54 Drug: Ondansetron IVP 4 mg IVP once; over 2 minutes Route: IVP; Site: right antecubital;vc1 06:50 Follow up: Response: No adverse reaction 8 05:54 Drug: Levalbuterol Inhalation 1.25 mg Inhalation once Route: Inhalation; vc1 06:51 Follow up: Response: No adverse reaction 8 05:54 Drug: Ipratropium Inhalation Aerosol 0.5 mg Inhalation once Route: Inhalation; vc1 06:51 Follow up: Response: No adverse reaction 05:55 Drug: NS 0.9% IV 1000 ml IV at 1 bolus Per protocol; 1000 mL bolus Route: IV; Rate: 1 vc1 bolus; Site: right antecubital; 07:08 Follow up: IV Status: Completed infusion; IV Intake: 1000ml 07:12 Drug: Enoxaparin Sub-Q 1 mg/kg Sub-Q once Route: Sub-Q; Site: left lower abdomen; km8 08:00 Follow up: Response: No adverse reaction iw 08:52 Drug: NS 0.9% IV 1000 ml IV at 75 ml/hr continuous Route: IV; Rate: 75 ml/hr; Site: jj7 right antecubital; 09:55 Follow up: IV Status: Infusion continued upon admission iw 12:10 Not Given (Patient Refused): morphineor iv 2 mg IVP once over 4 mins iw Disposition Summary: 03/16/23 05:30 Hospitalization Ordered Notes: Hospitalization Status: Observation tushar Provider: Luis Sanches cha Location: Telemetry/MedSurg (observation) tushar Condition: Stable tushar Problem: new tushar Symptoms: have improved tushar Bed/Room Type: Standard tushar Room Assignment: 231(03/16/23 08:47) eb Diagnosis - Chest pain on breathing tushar - Dyspnea tushar - Acute upper respiratory infection, unspecified tushar - Weakness tushar Forms: - Medication Reconciliation Form tushar - SBAR form tushar - Leadership Thank You Letter tushar Signatures: Dispatcher [employer] EDMichael Lindsey MD MD cha Attema, Lee, SALESPERSON [employer]SET[employer]-C SALESPERSON [employer]-Cla1 Lindsey Mcghee eb Adrianna Walker RN RN vc1 Wilian Lyon RN RN jj7 Mary Ann Noel RN RN pf1 Lory Ivory RN RN km8 Bella Sotomayor RN iw Corrections: (The following items were deleted from the chart) 04:59 04:57 PMHx: shingles (Hypertension); pf1 pf1 08:47 05:30 tushar eb
[2023-03-16 05:34] LABS: SARS-CoV-2 Antigen Rapid Res Negative (Negative)
[2023-03-16] MEDS ORDERED: CEFTRIAXONE 1000 MG/VIAL ONE (05:44)
[2023-03-16] MEDS ORDERED: LEVALBUTEROL 1.25 MG/3 ML NEB ONE (05:44)
[2023-03-16] MEDS ORDERED: ASPIRIN 81 MG CHEWABLE TABLET ONE (05:44)
[2023-03-16] MEDS ORDERED: MORPHINE 2 MG/ML SYR ONE (05:44)
[2023-03-16] MEDS ORDERED: NA CHLORIDE 0.9% 1,000 ML ONE ×2 (05:45→09:03)
[2023-03-16] MEDS ORDERED: ONDANSETRON 4 MG/2 ML VIAL ONE (05:45)
[2023-03-16] MEDS ORDERED: AZITHROMYCIN 500 MG INJ IVPB ONE (05:45)
[2023-03-16] MEDS ORDERED: NA CHLORIDE 0.9% 500 ML ONE (05:45)
[2023-03-16] MEDS ORDERED: IPRATROPIUM BROM 0.5MG/2.5ML ONE (05:45)
[2023-03-16 06:17] LABS: Absolute Lymphocytes (CBC) 0.8 K/uL (0.7-4.9); Lymphocytes % 10.3 % (15.3-44.8); MCV 92.8 fL (80-100); MPV 9.3 fL (7.6-11.3); Platelets 162 thou/uL (152-406); RBC Red Blood Cell Count 5.06 M/uL (3.86-4.86)
[2023-03-16 06:19] LABS: Albumin 3.8 g/dL (3.4-5.0); Bilirubin Direct 0.2 mg/dL (0-0.2); Bilirubin Indirect, Calculated 0.3 mg/dL (0.2-0.8); Bilirubin Total 0.5 mg/dL (0.2-1.0); Magnesium 2.2 mg/dL (1.6-2.4); Potassium 3.8 mEq/L (3.5-5.1); Protein, Total 7.6 g/dL (6.4-8.2); Troponin High Sensitivity 8.7 pg/mL (<58.9)
[2023-03-16 06:28] LABS: Protime INR 1.13
[2023-03-16] MEDS ORDERED: ENOXAPARIN 80 MG/0.8 ML SQ ONE (07:16)
--- NOTE | 2023-03-16 10:33 | P.HP ---
Certification for Inpatient Patient admitted to: Observation With expected LOS: <2 Midnights Patient will require the following post-hospital care: None Practitioner: I am a practitioner with admitting privileges, knowledge of patient current condition, hospital course, and medical plan of care. Services: Services provided to patient in accordance with Admission requirements found in Title 42 Section 412.3 of the Code of Federal Regulations Patient History Date of Service: 03/16/23 Reason for admission: Dyspnea, RSV History of Present Illness: 77-year-old female with history of CVA, ubh-ncpwjsb-ervvdqnzy diabetes, hypertension, hyperlipidemia presents emergency department chief complaint of shortness of breath, chest pain with cough. Her symptoms started on 03/08/2023 with cough, runny nose, sore throat and progressed to shortness of breath, chest pain with deep breaths and cough. Her is currently admitted to [facility] for similar. She was evaluated in the emergency department her labs are significant for a white blood cell of 8 hemoglobin 15.8 hematocrit 47 creatinine 1.1 glucose 229 lactic acid 2.[address] of the chest was performed which was negative for pulmonary [place] or other acute findings, chest x-ray also unremarkable. Initial high-sensitivity troponin within normal limits. Patient was requiring nasal cannula oxygen 2 L in the ED to maintain saturations greater than 90%. COVID and influenza swabs are negative, RSV swab added on-positive. Patient admitted for dyspnea, chest pain, RSV. Allergies ibuprofen Allergy (Mild, Verified 05/23/14 01:38) ROCK, Nausea, Vomitting benzonatate [From Tessalon Perles] Adverse Reaction (Mild, Verified 05/23/14 01:38) Confusion Home Medications: LORazepam [Ativan*] 0.5 mg PO TID PRN 05/23/14 Simvastatin [Zocor*] 20 mg PO BEDTIME 05/23/14 Cholecalciferol (Vitamin D3) [Vitamin D3] 2,000 units PO DAILY 12/03/20 Dapagliflozin Propanediol [Farxiga] 10 mg PO BEDTIME 12/03/20 Gabapentin [Neurontin*] 100 mg PO TID 12/03/20 Linagliptin [Tradjenta] 5 mg PO BEDTIME 12/03/20 Magnesium Oxide [Magnesium] 250 mg PO BID 12/03/20 Nifedipine [Procardia Xl] 30 mg PO DAILY 12/03/20 Sertraline [Zoloft*] 25 mg PO DAILY 12/03/20 lisinopriL [Prinivil*] 20 mg PO DAILY 12/03/20 Hydrocodone 7.5/APAP 325 [[place] 7.5/325 mg*] 1 tab PO Q8H PRN #20 tab 12/05/20 Pantoprazole [Protonix Tab] 40 mg PO DAILY #30 tab 12/23/20 - Past Medical/Surgical History Diabetic: Yes -: Diabetes mellitus type 2yep-gzbdrff-flypslluo -: HTN -: Hypothyroidism -: Hyperlipidemia -: CVA 2010 -: Shingles -: Cataract - bilateral -: Heart Cath -: -: Hysterectomy -: Appy -: [place] -: breast biopsy Psychosocial/ Personal History: lives with and kids - Social History Smoking Status: Never smoker Alcohol use: No CD- Drugs: No Caffeine use: Yes Place of Residence: Home Review of Systems 10-point ROS is otherwise unremarkable General: Malaise Respiratory: Cough, Shortness of Breath Physical Examination - Vital Signs Temperature: 98 F Blood Pressure: 106/55 Pulse: 101 Respirations: 16 - Physical Exam General: Alert, In no apparent distress, Oriented x3 HEENT: Atraumatic, PERRLA, Mucous membr. moist/pink, EOMI, Sclerae nonicteric Neck: Supple, 2+ carotid pulse no bruit, No LAD Respiratory: Clear to auscultation bilaterally, Normal air movement Cardiovascular: Regular rate/rhythm, Normal S1 S2 Capillary refill: <2 Seconds Gastrointestinal: Normal bowel sounds, No tenderness Integumentary: No rashes Neurological: Normal speech, Normal strength at 5/5 x4 extr, Normal tone, Normal affect - Studies Laboratory Data (last 24 hrs) 03/16/23 03/16/23 03/16/23 05:20 05:20 05:20 WBC 8.00 Hgb 15.8 H Hct 47.0 H Plt Count 162 PT 12.4 INR 1.13 Sodium 139 Potassium 3.8 BUN 16 Creatinine 1.10 H Glucose 229 H Magnesium 2.2 Total Bilirubin 0.5 AST 38 H ALT 46 Alkaline Phosphatase 137 H Microbiology Data (last 24 hrs): 03/16/23 09:10 Nasopharnyx Respiratory Syncytial Virus Ag Scrn - Final 03/16/23 05:03 Nasopharnyx Influenza Type A Antigen Screen - Final 03/16/23 05:03 Nasopharnyx Influenza Type B Antigen Screen - Final Assessment and Plan - Plan Assessment: Dyspnea, hypoxia secondary to RSV Pleuritic chest pain Diabetes mellitus type 8gvl-yzsvtze-xjphdluus with hyperglycemia Hypertension Hyperlipidemia History of CVA 2010 Plan: Dyspnea, hypoxia secondary to RSV Continue supportive care Obtain room air saturations, wean from nasal cannula as tolerated Prednisone 20 mg twice daily Contact precautions PT consult in place Pleuritic chest pain Likely related to RSV, persistent cough CTA negative for PE Trend troponins Diabetes mellitus type 3ysy-kzgpcum-vmmaiqshx with hyperglycemia ACHS Accu-Chek, sliding scale insulin Anticipate blood sugar will increase with steroids Hypertension Hyperlipidemia History of CVA 2010 Continue home medications DVT PPX: Lovenox Code status:full Discharge Plan: Home Plan to discharge in: 24 Hours - Advance Directives Does patient have a Living Will: No Does patient have a Durable POA for Healthcare: No - Code Status/Comfort Care Code Status Assessed: Yes (Full code) Critical Care: No Time Spent Managing Pts Care (In Minutes): 55
[2023-03-16] MEDS ORDERED: ONDANSETRON 4 MG/2 ML VIAL IV PRN (11:04)
[2023-03-16] MEDS ORDERED: ALBUTEROL 2.5 MG/3 ML NEB SOL NEB PRN (11:04)
[2023-03-16] MEDS: INSULIN REGULAR (HUMAN) 100 UNIT/ML SQ SCH ×3 (11:30→21:14)
[2023-03-16] MEDS: ENOXAPARIN 40 MG/0.4 ML SQ SCH (11:30)
[2023-03-16] MEDS: NA CHLORIDE 0.9% 1,000 ML IV SCH (13:14)
[2023-03-16] MEDS: AMOX/K CLAV 875 MG TAB PO SCH ×2 (13:14→21:16)
[2023-03-16] MEDS: predniSONE 20 MG TAB PO SCH ×2 (13:15→21:16)
[2023-03-16] MEDS: GUAIFENESIN 600 MG SA TAB PO PRN ×2 (13:18→21:26)
[2023-03-16] MEDS: HYDROCODONE/APAP 5/325 MG TAB PO PRN ×2 (13:18→21:16)
[2023-03-16 17:33] VITALS: BMI 36.3
--- NOTE | 2023-03-16 20:26 | RAD REPORT ---
EXAM DESCRIPTION: CT - Chest For Pe Angio - 03/16/2023 7:40 am TECHNIQUE: CT angiography of the chest was performed with axial dataset after bolus intravenous inje ction of intravenous contrast including computer-generated multiplanar MIP reformations. Total Dose Length Product: 956. This exam was performed according to our departmental dose-optimization program, which includes autom ated exposure control, adjustment of the mA and/or kV according to patient size and/or use of iterati ve reconstruction technique. COMPARISON: March 16, 2023 chest x-ray. CLINICAL HISTORY: CHEST PAIN. CT Chest: FINDINGS: Pulmonary arteries: Main, right, left pulmonary arteries are opacified without evidence fo r large, central or saddle embolus. The branching segmental arteries are normal. No evidence for acut e pulmonary embolism. Cardiac: Heart size: Normal. Pericardial effusion: None. Right ventricular strain: None. Left atrial clot: None. Aorta: Mild atheromatous calcification without aneurysm. Lungs: No acute pulmonary infiltrate. Pleura: No effusion. Mediastinum: No mass. Coral: No mass. Musculoskeletal: Mild thoracic spondylosis noting a posterior spondylotic ridge producing cord compre ssion and spinal stenosis at T3-4 on series 403 image 7. Upper abdomen: The stomach is thickened although underdistended. This could be an artifact of mucosal redundancy. Gastritis or gastric infiltration not excluded in this setting. IMPRESSION: 1. There is no evidence for acute pulmonary embolism. Electronically signed by: Matthew Schultz MD 03/16/2023 07:20 AM LEATHER FITTER Due to temporary technical issues with the PACS/Fluency reporting system, reports are being signed by the in house radiologists without review as a courtesy to insure prompt reporting. The interpreting radiologist is fully responsible for the content of the report.
--- NOTE | 2023-03-16 20:36 | RAD REPORT ---
EXAM DESCRIPTION: RAD - Chest Single View - 03/16/2023 4:54 am CLINICAL HISTORY: Cough;Dyspnea COMPARISON: None. FINDINGS: Single frontal radiograph view of the chest. Cardiomediastinal silhouette: Cardiomegaly. Lungs: No consolidation, pneumothorax, or pleural effusion. Low lung volumes. Bones: Degenerative endplate spondylosis. Leads overlie the chest. Upper abdomen: No abnormality identified. IMPRESSION: 1. No acute pulmonary process identified. Electronically signed by: Chase Mckeon DO 03/16/2023 06:11 AM RACK WORKER M Due to temporary technical issues with the PACS/Fluency reporting system, reports are being signed by the in house radiologists without review as a courtesy to insure prompt reporting. The interpreting radiologist is fully responsible for the content of the report.
[2023-03-17] MEDS: NA CHLORIDE 0.9% 1,000 ML IV SCH (00:25)
[2023-03-17 05:45] VITALS: TEMP 97.4
[2023-03-17 07:16] LABS: Absolute Lymphocytes (CBC) 0.7 K/uL (0.7-4.9); Hematocrit 43.1 % (36.0-45.0); Lymphocytes % 10.8 % (15.3-44.8); MCV 93.7 fL (80-100); Platelets 153 thou/uL (152-406)
[2023-03-17] MEDS: INSULIN REGULAR (HUMAN) 100 UNIT/ML SQ SCH ×2 (07:30→11:30)
[2023-03-17 07:34] LABS: Potassium 4.3 mEq/L (3.5-5.1)
[2023-03-17] MEDS: predniSONE 20 MG TAB PO SCH (08:35)
[2023-03-17] MEDS: GUAIFENESIN 600 MG SA TAB PO PRN (08:35)
[2023-03-17] MEDS: ENOXAPARIN 40 MG/0.4 ML SQ SCH (08:35)
[2023-03-17] MEDS: AMOX/K CLAV 875 MG TAB PO SCH (08:35)
[2023-03-17 08:42] VITALS: O2SAT 99
--- NOTE | 2023-03-17 08:59 | P.DS ---
Admission Date: 03/16/23 Discharge Date: 03/17/23 Reason for Admission: Dyspnea, RSV Brief History of Present Illness: 77-year-old female with history of CVA, btn-kinvfcv-znhipudjw diabetes, hypertension, hyperlipidemia presents emergency department chief complaint of shortness of breath, chest pain with cough. Her symptoms started on 03/08/2023 with cough, runny nose, sore throat and progressed to shortness of breath, chest pain with deep breaths and cough. Her is currently admitted to [facility] for similar. She was evaluated in the emergency department her labs are significant for a white blood cell of 8 hemoglobin 15.8 hematocrit 47 creatinine 1.1 glucose 229 lactic acid 2.[address] of the chest was performed which was negative for pulmonary [place] or other acute findings, chest x-ray also unremarkable. Initial high-sensitivity troponin within normal limits. Patient was requiring nasal cannula oxygen 2 L in the ED to maintain saturations greater than 90%. COVID and influenza swabs are negative, RSV swab added on-positive. Patient admitted for dyspnea, chest pain, RSV. Hospital Course: Assessment: Dyspnea, hypoxia secondary to RSV Pleuritic chest pain Diabetes mellitus type 9nbz-qiisufk-snvkuuzse with hyperglycemia Hypertension Hyperlipidemia History of CVA 2010 Patient presented to the emergency department with chief complaint of shortness of breath, cough, chest pain with cough. CTA of the chest was performed which was negative for pulmonary bleeding or other acute findings. Labs are unremarkable, did test positive for RSV. On day of admission she was requiring nasal cannula oxygen. She was given oral steroids, her oral antibiotic amoxicillin was continued, overnight she had significant improvement in her symptoms, this morning she is ambulatory, had showered and is off of oxygen feeling much better. Requesting to be discharged and stable for discharge at this time. She will be prescribed a short course of prednisone 20 mg twice daily for 4 additional days Continue other home medications as prescribed Please follow-up with primary care doctor in 1 week. <Eliseo Farah - Last Filed: 03/17/23 08:58> Admission Date: 03/16/23 Discharge Date: 03/17/23 <Luis Sanches - Last Filed: 03/17/23 13:59> Disposition: ROUTINE DISCHARGE Discharge Condition: GOOD Vital Signs/Physical Exam: Temp Pulse Resp BP Pulse Ox 97.4 F 67 18 144/65 H 99 03/17/23 04:00 03/17/23 04:00 03/17/23 04:00 03/17/23 04:00 03/17/23 04:00 General: Alert, In no apparent distress, Oriented x3 HEENT: Atraumatic, PERRLA, EOMI Neck: Supple, JVD not distended Respiratory: Clear to auscultation bilaterally, Normal air movement Cardiovascular: Regular rate/rhythm, Normal S1 S2 Gastrointestinal: Normal bowel sounds Musculoskeletal: No tenderness Integumentary: No rashes Neurological: Normal speech Laboratory Data at Discharge: WBC 6.50 thou/uL (4.3-10.9) 03/17/23 06:59 Hgb 14.0 g/dL (12.0-15.0) D 03/17/23 06:59 Hct 43.1 % (36.0-45.0) 03/17/23 06:59 Plt Count 153 thou/uL (152-406) 03/17/23 06:59 PT 12.4 SECONDS (9.5-12.5) 03/16/23 05:20 INR 1.13 03/16/23 05:20 Sodium 137 mEq/L (136-145) 03/17/23 06:59 Potassium 4.3 mEq/L (3.5-5.1) D 03/17/23 06:59 BUN 17 mg/dL (7-18) 03/17/23 06:59 Creatinine 0.81 mg/dL (0.55-1.02) 03/17/23 06:59 Glucose 161 mg/dL (74-106) H 03/17/23 06:59 Magnesium 2.2 mg/dL (1.6-2.4) 03/16/23 05:20 Total Bilirubin 0.5 mg/dL (0.2-1.0) 03/16/23 05:20 AST 38 U/L (15-37) H 03/16/23 05:20 ALT 46 U/L (13-56) 03/16/23 05:20 Alkaline Phosphatase 137 U/L (45-117) H 03/16/23 05:20 <Eliseo Farah - Last Filed: 03/17/23 08:58> Vital Signs/Physical Exam: Temp Pulse Resp BP Pulse Ox 97.4 F 83 14 158/66 H 99 03/17/23 08:00 03/17/23 08:00 03/17/23 08:00 03/17/23 08:00 03/17/23 08:00 Laboratory Data at Discharge: WBC 6.50 thou/uL (4.3-10.9) 03/17/23 06:59 Hgb 14.0 g/dL (12.0-15.0) D 03/17/23 06:59 Hct 43.1 % (36.0-45.0) 03/17/23 06:59 Plt Count 153 thou/uL (152-406) 03/17/23 06:59 PT 12.4 SECONDS (9.5-12.5) 03/16/23 05:20 INR 1.13 03/16/23 05:20 Sodium 137 mEq/L (136-145) 03/17/23 06:59 Potassium 4.3 mEq/L (3.5-5.1) D 03/17/23 06:59 BUN 17 mg/dL (7-18) 03/17/23 06:59 Creatinine 0.81 mg/dL (0.55-1.02) 03/17/23 06:59 Glucose 161 mg/dL (74-106) H 03/17/23 06:59 Magnesium 2.2 mg/dL (1.6-2.4) 03/16/23 05:20 Total Bilirubin 0.5 mg/dL (0.2-1.0) 03/16/23 05:20 AST 38 U/L (15-37) H 03/16/23 05:20 ALT 46 U/L (13-56) 03/16/23 05:20 Alkaline Phosphatase 137 U/L (45-117) H 03/16/23 05:20 <Luis Sanches - Last Filed: 03/17/23 13:59> Diet: ADA Activity: Ad coco Time spent managing pt's care (in minutes): 30 <Eliseo Farah - Last Filed: 03/17/23 08:58> Physician Review: Patient Assessed, Agree with Above Assessment and Plan (Improved. Continues with cough that keeps her up at night. Otherwise improving and wanting to go home. Family at bedside in agreement. Medications as noted above. Return precautions given.) <Luis Sanches - Last Filed: 03/17/23 13:59> Home Medications: LORazepam [Ativan*] 0.5 mg PO TID PRN 05/23/14 Simvastatin [Zocor*] 20 mg PO BEDTIME 05/23/14 Cholecalciferol (Vitamin D3) [Vitamin D3] 2,000 units PO DAILY 12/03/20 Dapagliflozin Propanediol [Farxiga] 10 mg PO BEDTIME 12/03/20 Gabapentin [Neurontin*] 100 mg PO TID 12/03/20 Linagliptin [Tradjenta] 5 mg PO BEDTIME 12/03/20 Magnesium Oxide [Magnesium] 250 mg PO BID 12/03/20 Nifedipine [Procardia Xl] 30 mg PO DAILY 12/03/20 Sertraline [Zoloft*] 25 mg PO DAILY 12/03/20 lisinopriL [Prinivil*] 20 mg PO DAILY 12/03/20 Hydrocodone 7.5/APAP 325 [[place] 7.5/325 mg*] 1 tab PO Q8H PRN #20 tab 12/05/20 Pantoprazole [Protonix Tab] 40 mg PO DAILY #30 tab 12/23/20 Albuterol Neb [Proventil 0.083% Neb Soln] 2.5 mg IH Q6H PRN #1 box 03/17/23 Codeine Phosphate/Guaifenesin [Codeine-Guaifen 10-100 mg/5 ml] 10 ml PO Q6H PRN #150 ml 03/17/23 Codeine Phosphate/Guaifenesin [Guaifen-Codeine 100-10 mg/5 ml] 10 ml PO Q6H PRN #150 ml 03/17/23 predniSONE [Prednisone*] 20 mg PO BID 4 Days #8 tab 03/17/23 New Medications: Codeine Phosphate/Guaifenesin [Codeine-Guaifen 10-100 mg/5 ml] 10 ml PO Q6H PRN #150 ml PRN Reason: Cough Codeine Phosphate/Guaifenesin [Guaifen-Codeine 100-10 mg/5 ml] 10 ml PO Q6H PRN #150 ml PRN Reason: Cough predniSONE [Prednisone*] 20 mg PO BID 4 Days #8 tab Albuterol Neb [Proventil 0.083% Neb Soln] 2.5 mg IH Q6H PRN #1 box PRN Reason: Wheezing Physician Discharge Instructions: Patient presented to the emergency department with chief complaint of shortness of breath, cough, chest pain with cough. CTA of the chest was performed which was negative for pulmonary bleeding or other acute findings. Labs are unremarkable, did test positive for RSV. On day of admission she was requiring nasal cannula oxygen. She was given oral steroids, her oral antibiotic amoxicillin was continued, overnight she had significant improvement in her symptoms, this morning she is ambulatory, had showered and is off of oxygen feeling much better. Requesting to be discharged and stable for discharge at this time. She will be prescribed a short course of prednisone 20 mg twice daily for 4 additional days Continue other home medications as prescribed Please follow-up with primary care doctor in 1 week. Followup: NONE,NONE [Primary Care Provider] - 1 Week
[2023-03-17 09:00] VITALS: BP 158/66
[2023-03-17 09:07] LABS: Blood Morphology Comment NOT SEEN (NOT SEEN); Platelet Estimate ADEQ; White Blood Cell Scan OK (OK)
== END 2023-03-17 11:47 | disposition home or self-care (01) ==
LOC: ER 04:30 → ERHOLD 09:40 → 2ND 09:41
PROVIDERS: ADMIT Hospitalist; ATTEND Hospitalist
DX: R06.00 Dyspnea, unspecified (principal); B97.4 Respiratory syncytial virus as the cause of diseases classified elsewhere; R09.02 Hypoxemia; E11.65 Type 2 diabetes mellitus with hyperglycemia; R07.81 Pleurodynia; I10 Essential (primary) hypertension; E78.5 Hyperlipidemia, unspecified; Z86.73 Personal history of transient ischemic attack (TIA), and cerebral infarction without residual deficits
CPT/HCPCS: 96365; 96361; 96368; 93005; 87040 ×2; 85025 ×2; 80048 ×2; 36415 ×2; 83735; 85610; 82947 ×4; 80076; 83605 ×2; 84484 ×3; 83880; 87807; 87804 ×2; 71275; 71045; 97161; 96375; 96372; 99285; 96366; 87811; Q9967; J1815; J7512 ×3; J7614; J7613; J7644; J1650; J2270; J2405; J7040; J7030 ×3; J0696; G0378

== ENCOUNTER 2024-05-10 11:04 | Emergency (ER) | payer OTHER ==
[2024-05-10 11:49] LABS: Absolute Eosinophils 0.2 K/uL (0-0.5); Absolute Lymphocytes (CBC) 1.3 K/uL (0.7-4.9); Absolute Monocytes 0.8 K/uL (0.1-1.3); Absolute Neutrophil 5.9 K/uL (1.8-8.0); Basophils % 0.6 % (0-1.3); Eosinophils % 2.7 % (0-4.4); Hemoglobin 16.4 g/dL (12.0-15.0); Lymphocytes % 16.1 % (15.3-44.8); MCH 30.5 pg (27.0-35.0); MCHC 33.4 g/dL (32.0-36.0); MCV 91.2 fL (80-100); MPV 9.1 fL (7.6-11.3); Neutrophils % 71.6 % (41.7-73.7); Platelets 174 thou/uL (152-406); RBC Red Blood Cell Count 5.37 M/uL (3.86-4.86)
[2024-05-10 11:58] LABS: PT Prothrombin Time 11.6 SECONDS (9.4-12.5); PTT, Activated Partial Thromb 36.2 SECONDS (24.3-36.9); Protime INR 1.11
[2024-05-10 12:02] LABS: Anion Gap 10.4 mEq/L (5.0-15.0); Potassium 4.4 mEq/L (3.5-5.1)
[2024-05-10] MEDS ORDERED: ONDANSETRON 4 MG/2 ML VIAL ONE (12:18)
[2024-05-10] MEDS ORDERED: MORPHINE 2 MG/ML SYR ONE ×2 (12:18→15:33)
--- NOTE | 2024-05-10 12:44 | RAD REPORT ---
EXAMINATION: US RIGHT LOWER EXTREMITY VENOUS DOPPLER CLINICAL INDICATION: [facility] MAIN right leg PAIN Bed Name: 19 Y TECHNIQUE: Complete bilateral duplex sonography of the RIGHT lower extremity veins was performed. The examination included compression for vein patency, color Doppler imaging and flow augmentation in response to distal compression of the distal external iliac, common femoral, femoral, popliteal, tibi al, and great and small saphenous veins. COMPARISON: No prior exam. FINDINGS: Duplex sonography testing of the veins of the RIGHT lower extremity was performed. Color flow imaging shows all veins to be compressible with [id number] color filling. Pulsatile and phasic flow is present within all lower extremity deep and superficial veins examined. IMPRESSION: No evidence of deep venous thrombosis.
--- NOTE | 2024-05-10 13:34 | RAD REPORT ---
EXAMINATION: XR Lumbar Spine 3 Views CLINICAL INDICATION: Female, 78 years old. [facility] MAIN PAIN Bed Name: 19 TECHNIQUE: AP, lateral, focused lateral lumbosacral views of the lumbar spine were obtained. COMPARISON: 08/17/2019. FINDINGS: For purposes of this dictation, it is assumed that there are 5 lumbar type vertebral bodies. ALIGNMENT: There is normal alignment of the lumbar spine. BONES: Vertebral bodies are normal in height. No aggressive osseous lesions. Mild multilevel degenera tive changes most notably along the lower lumbar facet articulations. Moderate degenerative changes of the SI joints. DISCS: Disc heights are maintained. IMPRESSION: No acute lumbar spine abnormality. Degenerative changes as above.
--- NOTE | 2024-05-10 14:29 | RAD REPORT ---
EXAM: XR Knee Right 3 View HISTORY: [facility] MAIN PAIN Bed Name: 19 COMPARISON: None TECHNIQUE: 3 views of the left knee were obtained. FINDINGS: Moderate knee effusion is seen. There is no evidence of acute fracture or dislocation. Mil d tricompartmental degenerative changes are seen. No soft tissue swelling or other soft tissue abnormality is present. IMPRESSION: No evidence of acute osseous abnormality. Moderate joint effusion. Mild tricompartmental osteoarthri tic changes.
--- NOTE | 2024-05-10 15:09 | ER ---
Nurse's Notes [facility] Name: Sondra Azevedo Age: 78 yrs Sex: Female : 1945 Arrival Date: 05/10/2024 Time: 11:04 Bed 19 Private MD: Diagnosis: Effusion, right knee;Other specified arthritis, right knee Presentation: 05/10 11:10 Chief complaint: Severe low back pain that radiates to right buttock and knee x 1 week. hb Coronavirus screen: At this time, the client does not indicate any symptoms associated with coronavirus-19. Ebola Screen: No symptoms or risks identified at this time. Initial Sepsis Screen: Does the patient meet any 2 criteria? No. Patient's initial sepsis screen is negative. Does the patient have a suspected source of infection? No. Patient's initial sepsis screen is negative. Risk Assessment: Do you want to hurt yourself or someone else? Patient reports no desire to harm self or others. Onset of symptoms was May 03, 2024. 11:10 Method Of Arrival: Wheelchair hb 11:10 Acuity: SONALI 3 hb Historical: - Allergies: 11:42 Benzonatate; hb 11:42 Ibuprofen; hb - PMHx: 11:42 depressive disorder; CVA; DM; shingles; Anxiety; Hypertension; Hyperlipidemia; hb - PSHx: 11:42 cataract; Appendectomy; Cholecystectomy; ; hysterectomy; hb - Immunization history:: Adult Immunizations up to date. - Infectious Disease History:: Denies. - Social history:: Smoking status: Patient denies any tobacco usage or history of. - Family history:: not pertinent. - Hospitalizations: : No recent hospitalization is reported. Screenin:50 [facility] ED Fall Risk Assessment (Adult) History of falling in the last 3 months, kj2 including since admission No falls in past 3 months (0 pts) Confusion or Disorientation No (0 pts) Intoxicated or Sedated No (0 pts) Impaired Gait No (0 pts) Mobility Assist Device Used No (0 pt) Altered Elimination No (0 pt) Score/Fall Risk Level 0 - 2 = Low Risk Maintained a safe environment, Hourly rounding (assess needs \\T\\ fall precautionary measures) done. Abuse screen: Denies threats or abuse. Denies injuries from another. Nutritional screening: No deficits noted. Tuberculosis screening: No symptoms or risk factors identified. Assessment: 11:20 General: Appears uncomfortable, Behavior is calm, cooperative, appropriate for age. ap3 Pain: Complains of pain in right hip and right leg Pain began "earlier this week". Neuro: Level of Consciousness is awake, alert, obeys commands, Oriented to person, place, time, situation, Appropriate for age Speech is normal. Cardiovascular: Patient's skin is warm and dry. Respiratory: Airway is patent Respiratory effort is even, unlabored, Respiratory pattern is regular, symmetrical. 12:50 Reassessment: Patient appears in no apparent distress at this time. Patient and/or kj2 family updated on plan of care and expected duration. Pain level reassessed. Patient is alert, oriented x 3, equal unlabored respirations, skin warm/dry/pink. 13:50 Reassessment: Patient appears in no apparent distress at this time. Patient and/or kj2 family updated on plan of care and expected duration. Pain level reassessed. Patient is alert, oriented x 3, equal unlabored respirations, skin warm/dry/pink. 14:30 Reassessment: Patient appears in no apparent distress at this time. Patient and/or kj2 family updated on plan of care and expected duration. Pain level reassessed. Patient is alert, oriented x 3, equal unlabored respirations, skin warm/dry/pink. 15:24 Reassessment: Patient appears in no apparent distress at this time. Patient and/or kj2 family updated on plan of care and expected duration. Pain level reassessed. Patient is alert, oriented x 3, equal unlabored respirations, skin warm/dry/pink. Vital Signs: 11:10 BP 147 / 60; Pulse 66; Resp 16; Temp 97.8(TE); Pulse Ox 96% on R/A; Weight 63.96 kg; hb Height 4 ft. 11 in. ; Pain 10/10; 13:30 BP 142 / 60; Pulse 68; Resp 20; Pulse Ox 100% on R/A; kj2 14:30 BP 140 / 68; Pulse 64; Resp 18; Pulse Ox 98% on R/A; kj2 15:26 BP 138 / 68; Pulse 68; Resp 18; Temp 98; Pulse Ox 100% on R/A; kj2 11:10 Body Mass Index 28.48 (63.96 kg, 149.86 cm) hb 11:10 Pain Scale: Adult hb ED Course: 11:07 Patient arrived in ED. ra3 11:08 Sarwat Sanches MD is Attending Physician. rn 11:20 Reena Perez, STAN is Primary Nurse. ap3 11:20 Patient has correct armband on for positive identification. Bed in low position. Call ap3 light in reach. Side rails up X2. Adult w/ patient. Pulse ox on. NIBP on. Door closed. Noise minimized. Warm blanket given. 11:41 Initial lab(s) drawn, by me, sent to lab. Inserted saline lock: 22 gauge in right ap3 antecubital area, using aseptic technique. Blood collected. Flushed with 10 mL NS. 11:41 CBC with Diff Sent. ap3 11:41 Basic Metabolic Panel Sent. ap3 11:41 Ptt, Activated Sent. ap3 11:41 Protime (+inr) Sent. ap3 11:42 Triage completed. hb 12:03 Extremity Venous Uni Ltd US In Process Unspecified. EDMS 12:50 Provided Education on: call light. kj2 13:06 XRAY Knee RIGHT 3 view In Process Unspecified. EDMS 13:06 XRAY Lumbar Spine (3 Views) In Process Unspecified. EDMS 15:28 Arm band placed on Patient placed in an exam room. kj2 15:28 No provider procedures requiring assistance completed. IV discontinued, intact, kj2 bleeding controlled, No redness/swelling at site. Pressure dressing applied. Administered Medications: 12:27 Drug: morphine IVP or IV 2 mg IVP once over 4 mins Route: IVP; Infused Over: 4 mins; ap3 Site: right antecubital; 15:29 Follow up: Response: No adverse reaction kj2 12:27 Drug: Ondansetron IVP 4 mg IVP once; over 2 minutes Route: IVP; Site: right antecubital;ap3 15:29 Follow up: Response: No adverse reaction kj2 15:30 Drug: morphine IVP or IV 2 mg IVP once over 4 mins Route: IVP; Infused Over: 4 mins; kj2 Site: right antecubital; 15:44 Follow up: Response: No adverse reaction; Medication administered at discharge. kj2 Medication: 15:27 VIS not applicable for this client. kj2 Outcome: 15:09 Discharge ordered by . rn 15:28 Discharged to home ambulatory, with family, kj2 15:28 Condition: stable 15:28 Discharge instructions given to patient, Instructed on discharge instructions, follow up and referral plans. Demonstrated understanding of instructions, follow-up care, 16:01 Patient left the ED. kj2 Signatures: Dispatcher [employer] EDMS Sarwat Sanches MD MD rn Baxter, Heather RN RN Reena Gruber RN RN ap3 Alva, Ruby ra3 Jordan, Krystal, RN RN kj2
--- NOTE | 2024-05-10 15:09 | EDPHYS ---
Physician Documentation [facility] Name: Sondra Azevedo Age: 78 yrs Sex: Female : 1945 Arrival Date: 05/10/2024 Time: 11:04 Bed 19 Private MD: ED Physician Sarwat Sanches HPI: 05/10 13:41 This 78 yrs old Female presents to ER via Wheelchair with complaints of Leg rn Pain. 13:41 The patient presents with pain. The complaints affect the right upper thigh, right rn quadriceps and right knee. Onset: The symptoms/episode began/occurred 2 week(s) ago. Modifying factors: The symptoms are alleviated by remaining still, the symptoms are aggravated by movement, weight bearing, bending knee. Severity of symptoms: At their worst the symptoms were moderate, in the emergency department the symptoms are unchanged. The patient has not experienced similar symptoms in the past. Patient and family report right leg pain for the last 2 weeks. Patient reports pain to the top of right buttocks, right thigh and right knee. Hurts most in the right knee. No fever or chills. No trauma. No skin changes. Has history of arthritis.. Historical: - Allergies: 11:42 Benzonatate; hb 11:42 Ibuprofen; hb - PMHx: 11:42 depressive disorder; CVA; DM; shingles; Anxiety; Hypertension; Hyperlipidemia; hb - PSHx: 11:42 cataract; Appendectomy; Cholecystectomy; ; hysterectomy; hb - Immunization history:: Adult Immunizations up to date. - Infectious Disease History:: Denies. - Social history:: Smoking status: Patient denies any tobacco usage or history of. - Family history:: not pertinent. - Hospitalizations: : No recent hospitalization is reported. ROS: 13:41 Constitutional: Negative for fever, chills, and weight loss, Cardiovascular: Negative rn for chest pain, palpitations, and edema, Respiratory: Negative for shortness of breath, cough, wheezing, and pleuritic chest pain, Abdomen/GI: Negative for abdominal pain, nausea, vomiting, diarrhea, and constipation, Back: Negative for injury and pain, : Negative for injury, bleeding, discharge, and swelling, MS/Extremity: Positive for right leg pain and right knee pain Neuro: Negative for headache, weakness, numbness, tingling, and seizure, Exam: 13:41 Constitutional: This is a well developed, well nourished patient who is awake, alert, rn appears in pain Cardiovascular: Regular rate and rhythm. No pulse deficits. Respiratory: No increased work of breathing, no retractions or nasal flaring. Abdomen/GI: Soft, non-tender Skin: Warm, dry, no signs of cellulitis MS/ Extremity: Pulses equal, no cyanosis. Neurovascular intact. Painful range of motion at the hip and knee. Tender right medial knee and along inner right thigh. No warmth or erythema surrounding the knee. No skin changes. Neuro: Awake and alert, GCS 15, Motor strength 5/5 in all extremities. Sensory grossly intact. Cerebellar exam normal. Vital Signs: 11:10 BP 147 / 60; Pulse 66; Resp 16; Temp 97.8(TE); Pulse Ox 96% on R/A; Weight 63.96 kg; hb Height 4 ft. 11 in. ; Pain 10/10; 13:30 BP 142 / 60; Pulse 68; Resp 20; Pulse Ox 100% on R/A; kj2 14:30 BP 140 / 68; Pulse 64; Resp 18; Pulse Ox 98% on R/A; kj2 15:26 BP 138 / 68; Pulse 68; Resp 18; Temp 98; Pulse Ox 100% on R/A; kj2 11:10 Body Mass Index 28.48 (63.96 kg, 149.86 cm) hb 11:10 Pain Scale: Adult hb MDM: 11:08 Medical Screening Exam initiated rn 15:07 Differential diagnosis: Sprain, strain, arthritis, knee effusion. Data reviewed: vital rn signs, nurses notes, lab test result(s), radiologic studies, plain films, and as a result, I will discharge patient. Counseling: I had a detailed discussion with the patient and/or guardian regarding the historical points, exam findings, and any diagnostic results supporting the discharge/admit diagnosis, lab results, radiology results, the need for outpatient follow up, to return to the emergency department if symptoms worsen or persist or if there are any questions or concerns that arise at home. Response to treatment: the patient's symptoms have markedly improved after treatment, and as a result, I will discharge patient. Special discussion: I discussed with the patient/guardian in detail that at this point there is no indication for admission to the hospital. It is understood, however, that if the symptoms persist or worsen the patient needs to return immediately for re-evaluation. Based on the history and exam findings, there is no indication for further emergent testing or inpatient evaluation. I discussed with the patient/guardian the need to see the primary care provider for further evaluation of the symptoms. ED course: No acute findings and workup. Normal WBC. X-ray shows tricompartmental osteoarthritis and knee effusion. No warmth or overlying skin changes. Afebrile. No history of joint infections. Spoke to family and patient about ruling out septic arthritis and requiring needle aspiration, they agree they do not believe it is and do not want needle aspiration performed. Will discharge home with as needed pain medication, has knee brace at home that she uses for this in the and recommend PCP follow-up and given return precautions.. 05/10 11:29 Order name: CBC with Diff; Complete Time: 12:11 rn 05/10 11:29 Order name: Basic Metabolic Panel; Complete Time: 12:11 rn 05/10 11:29 Order name: Protime (+inr); Complete Time: 12:11 rn 05/10 11:29 Order name: Ptt, Activated; Complete Time: 12:11 rn 05/10 11:29 Order name: XRAY Knee RIGHT 3 view; Complete Time: 14:47 rn 05/10 11:29 Order name: XRAY Lumbar Spine (3 Views); Complete Time: 14:47 rn 05/10 11:29 Order name: Extremity Venous Uni Ltd US; Complete Time: 13:17 rn 05/10 11:29 Order name: IV Start; Complete Time: 11:41 rn Administered Medications: 12:27 Drug: morphine IVP or IV 2 mg IVP once over 4 mins Route: IVP; Infused Over: 4 mins; ap3 Site: right antecubital; 15:29 Follow up: Response: No adverse reaction kj2 12:27 Drug: Ondansetron IVP 4 mg IVP once; over 2 minutes Route: IVP; Site: right antecubital;ap3 15:29 Follow up: Response: No adverse reaction kj2 15:30 Drug: morphine IVP or IV 2 mg IVP once over 4 mins Route: IVP; Infused Over: 4 mins; kj2 Site: right antecubital; 15:44 Follow up: Response: No adverse reaction; Medication administered at discharge. kj2 Disposition Summary: 05/10/24 15:09 Discharge Ordered Notes: Location: Home rn Problem: an ongoing problem rn Symptoms: have improved rn Condition: Stable rn Diagnosis - Effusion, right knee rn - Other specified arthritis, right knee rn Followup: rn - With: Private Physician - When: As needed - Reason: Recheck today's complaints, Re-evaluation by your physician Discharge Instructions: - Discharge Summary Sheet rn - Arthritis rn - Knee Effusion rn Forms: - Medication Reconciliation Form rn - Antibiotic geotechnical intern - Prescription Opioid Use rn - Patient Portal Instructions rn - Leadership Thank You Letter rn Prescriptions: - Tramadol 50 mg Oral tablet - take 1 tablet ORAL route every 8-12 hours As needed as needed; 15 tablet; rn Refills: 0, Product Selection Permitted Signatures: Dispatcher [employer] Srawat Marcelo MD MD rn Baxter, Heather, RN RN Reena Gruber, RN RN ap3 Jina Peterson, RN RN kj2
[2024-05-10 16:27] VITALS: BP 138/68; TEMP 98; O2SAT 100
== END 2024-05-10 16:01 | disposition home or self-care (01) ==
LOC: ER 11:04
DX: M25.461 Effusion, right knee (principal); M13.861 Other specified arthritis, right knee
CPT/HCPCS: 85025; 80048; 36415; 85610; 85730; 72100; 73562; 93971; 96375; 96374; 99284; J2270 ×2; J2405